=== PATIENT | female | born 1960 | race Two or more races ===

== ENCOUNTER → 2020-04-29 13:24 | Outpatient (BNVA) | payer OTHER, SELFPAY | PROVIDERS: PCP Family Medicine; Referring Provider Family Medicine; Visit Provider Student in an Organized Health Care Education/Training Program | DX: M17.0 Bilateral primary osteoarthritis of knee (principal) | CPT/HCPCS: 20610; 99212 ==

== ENCOUNTER 2020-06-09 12:44 | Outpatient (REF) | payer OTHER, SELFPAY | END 2020-06-09 12:45 | disposition home or self-care (01) | LOC: HO.LAB 12:44 | PROVIDERS: PCP Family Medicine; Visit Provider Internal Medicine | DX: Z20.828 Contact with and (suspected) exposure to other viral communicable diseases (principal) | CPT/HCPCS: C9803; U0003 ==

== ENCOUNTER 2020-07-19 12:24 | Emergency (ER) | payer OTHER, SELFPAY ==
[2020-07-19 13:29] VITALS: BP 159/94; PULSE 92; RESP 18; TEMP 36.6; O2SAT 95; BMI 35.4
--- NOTE | 2020-07-19 13:53 | ED_ITS ---
HPI - Neck Pain/Injury General Chief Complaint: Neck Pain/Injury Stated Complaint: neck pain Time Seen by Provider: 07/19/20 13:52 Source: patient Mode of arrival: ambulatory Limitations: no limitations History of Present Illness HPI Narrative: seen at [facility] for the same last week now with radiating pain to right arm. Patient states that only tylenol with codeine helps her. States she does not want gabapentin MD complaint: neck pain Onset (ago): week(s) Radiation: right lateral and right upper extremity Severity: moderate Quality: burning Duration: intermittent Related Data Home Medications Medication Instructions Recorded Confirmed albuterol sulfate 90 mcg/actuation 2 puff INHALATION Q4-6H PRN 04/29/20 04/29/20 aerosol inhaler fluticasone propionate 110 1 puff INHALATION BID 04/29/20 04/29/20 mcg/actuation HFA aerosol inhaler fluticasone propionate 50 1 spray INTRANASAL DAILY 04/29/20 04/29/20 mcg/actuation nasal spray,suspension hydrochlorothiazide 25 mg tablet 25 mg PO DAILY 04/29/20 04/29/20 hydrocortisone 2.5 % topical cream 1 applic TOPICAL BID PRN 04/29/20 04/29/20 Previous Rx's Medication Instructions Recorded cyclobenzaprine 10 mg PO TID #10 tab 07/19/20 Allergies Allergy/AdvReac Type Severity Reaction Status Date / Time acetaminophen [From PERCOCET] Allergy Intermediate HIVES Verified 07/19/20 13:32 latex [LATEX] Allergy Intermediate RASH Verified 07/19/20 13:32 oxycodone [OXYCODONE] Allergy Intermediate hives, Verified 07/19/20 13:32 itching Penicillins Allergy Intermediate HIVES Verified 07/19/20 13:32 sulfamethoxazole Allergy Intermediate HIVES Verified 07/19/20 13:32 [From Bactrim] tramadol [TRAMADOL] Allergy Intermediate HEADACHES Verified 07/19/20 13:32 Sulfa (Sulfonamide Allergy Mild Itching Verified 07/19/20 13:32 Antibiotics) Review of Systems Constitutional: Constitutional: Reports no additional constitutional complaints Eyes: Eyes: Reports no additional eye complaints ENT: Denies dizziness Cardiovascular: Cardiovascular: Reports no additional cardiovascular complaints Respiratory: Respiratory: Reports as per HPI Gastrointestinal: Gastrointestinal: Reports no additional gastrointestinal complaints Genitourinary: Genitourinary: Reports no additional female genitourinary complaints Musculoskeletal: Musculoskeletal: Reports no additional musculoskeletal complaints Integumentary/Breasts: Skin/Breast: Denies rash Neurologic: Reports system reviewed and no additional complaints, except as documented, Denies dizziness and Denies Sensory deficit (Neuro) Psychiatric: Psychiatric: Denies anxiety [facility] Past Medical History Medical History Asthma Primary osteoarthritis of left knee Primary osteoarthritis of right knee Social History Social History Alcohol intake: never Smoking Status: Never smoker Advance Directives: No Advance Directives Information Provided: Yes Physical Exam Vital Signs: Vital Signs: Last Vital Signs Temp 97.8 F 07/19/20 13:29 Pulse 92 07/19/20 13:29 Resp 18 07/19/20 13:29 BP 159/94 H 07/19/20 13:29 Pulse Ox 95 07/19/20 13:29 Body Mass Index 35.4 Const: General: healthy appearing Nutritional Appearance: average body habitus Orientation/consciousness: oriented to person and patient oriented x3 Limitations: no limitations HENMT: Head: Yes normal to inspection Ears: external ears normal General nose exam: Normal external nose present Mouth: Normal oral and palatal mucosa present and oropharynx normal Throat: Yes posterior oropharynx normal Eyes: General: appearance normal, both eyes and all related structures Neck: Other: supple, no evidence of restriction Neck: Yes normal visual inspection Chest: Chest palpation & inspection: normal inspection of the chest Resp: Auscultation: clear to auscultation bilaterally Cardio: Jugular venous distension: no JVD Rate: regular rate Rhythm: re gular rhythm Heart sounds: S1 normal heart sound present and S2 normal heart sound present GI: Inspection: Yes normal to inspection Palpation (GI): Soft to palpation, nontender and No hepatosplenomegaly present Auscultation: normal bowel ariel nds : General: Yes no CVA tenderness Back/Spine/Pelvis: Back: no CVA tenderness Skin: General skin exam: no rashes or lesions noted Neuro: General: oriented to person and patient oriented x3 Cranial nerves: Yes CN's II-XII intact bilaterally Motor exam (neuro): 5/5 motor strength present throughout Sensory Exam: No Sensory deficit (Neuro) Extrem: General: Yes normal to inspection Psych: Appearance: grossly normal Course Course Course Narrative: significant degenerative changes will refer to neuro for injections MDM - Neck Pain/Injury Differential Diagnosis Differential diagnosis: Likely disc disorder of cervical region and cervical radiculopathy Discharge Plan Discharge Clinical Impression: Disc disorder of cervical region, Cervical radiculopathy Patient Disposition: Home, Self-Care Instructions: Cervical Disc Herniation (ED), Cervical Radiculopathy (ED) Additional Instructions: Call the neurosurgeon to receive cervical injections Prescriptions: New cyclobenzaprine 10 mg tablet 10 mg PO TID Qty: 10 RF: 0 No Action hydrochlorothiazide 25 mg tablet 25 mg PO DAILY RF: 0 Flovent HFA 110 mcg/actuation HFA aerosol inhaler 1 puff inhalation BID RF: 0 fluticasone propionate [Flonase Allergy Relief] 50 mcg/actuation spray,suspension 1 spray intranasal DAILY RF: 0 albuterol sulfate [Ventolin HFA] 90 mcg/actuation HFA aerosol inhaler 2 puff inhalation Q4-6H PRNRF: 0 hydrocortisone 2.5 % cream 1 applic topical BID PRNRF: 0 Referrals: Brigitte Kan DO [Primary Care Provider] - 2 days Viktoria Thurman MD [Physician] - 2 days Stand Alone Forms: Work/School Release Interventions: ED Discharge Assessment Last Done: 07/19/20 14:47 Discharge Date/Time: 07/19/20 14:48
--- NOTE | 2020-07-19 13:54 | XR_ITS ---
EXAMINATION: XR CERVICAL SPINE CLINICAL INFORMATION: Radicular pain to right arm COMPARISON: None TECHNIQUE: 4 views of the cervical spine including swimmer's view were obtained. FINDINGS: Bone alignment is normal. No fracture or dislocation is seen. There is degenerative spondylosis and degenerative disc disease from C4-C5 to C6-C7. Prevertebral soft tissues are normal. XR/XR cervical spine 3V IMPRESSION: Degenerative changes.
[2020-07-19] MEDS: Ketorolac Tromethamine 60 MG/2 ML VIAL IM (14:08)
== END 2020-07-19 14:48 | disposition home or self-care (01) ==
PROVIDERS: Emergency Provider Emergency Medicine; PCP Family Medicine
DX: M50.123 Cervical disc disorder at C6-C7 level with radiculopathy (principal); M47.22 Other spondylosis with radiculopathy, cervical region
CPT/HCPCS: 72040; 96372; 99283; J1885

== ENCOUNTER 2020-08-18 10:23 | Outpatient (REF) | payer OTHER, SELFPAY ==
--- NOTE | ~2020-08-18 | XR_ITS ---
EXAMINATION: XR PELVIS CLINICAL INFORMATION: Pelvic pain. COMPARISON: 03/28/2018 left hip radiographs. TECHNIQUE: AP view of the pelvis. FINDINGS: The patient is status post left hip arthroplasty showing good anatomic alignment with no evidence for hardware malfunction. There is no acute fracture. Mild right hip degenerative joint changes are seen with cam femoral acetabular impingement. Moderate to severe degenerative joint changes are seen in the visualized inferior lumbar spine. XR/XR pelvis 1-2V IMPRESSION: 1. No left hip hardware abnormality or change. No acute fracture. 2. Mild right hip degenerative joint changes with cam femoral acetabular impingement.
== END 2020-08-18 10:24 | disposition home or self-care (01) ==
LOC: HO.HOSX 10:23
PROVIDERS: PCP Family Medicine; Visit Provider Orthopaedic Surgery
DX: M61.0 Myositis ossificans traumatica (principal); Z96.642 Presence of left artificial hip joint
CPT/HCPCS: 20610; 72170; 99212; J1100

== ENCOUNTER → 2020-08-25 09:25 | Outpatient (BNVA) | payer OTHER, SELFPAY | PROVIDERS: PCP Family Medicine; Visit Provider Student in an Organized Health Care Education/Training Program | DX: M17.11 Unilateral primary osteoarthritis, right knee (principal); M17.12 Unilateral primary osteoarthritis, left knee | CPT/HCPCS: 20610; 99212 ==

== ENCOUNTER 2020-10-03 12:23 | Outpatient (REF) | payer OTHER, SELFPAY ==
--- NOTE | ~2020-10-03 | US_ITS ---
EXAMINATION: US VENOUS ULTRASOUND WITH DOPPLER LOWER EXTREMITY, BILATERAL CLINICAL INFORMATION: Bilateral lower extremity edema and pain. COMPARISON: 09/24/2018 TECHNIQUE: Ultrasound of the deep veins is performed from the hip to the calf with compression sonography and color and pulse Doppler assessment. Spectral analysis with color-flow imaging is performed. FINDINGS: RIGHT: There is normal venous compression and respiratory variation and augmented flow. The visualized common femoral vein, superficial femoral vein, profunda femoral vein, popliteal vein, and the trifurcation region shows no evidence of deep venous thrombosis. There is no significant popliteal fossa cyst. LEFT: There is normal venous compression and respiratory variation and augmented flow. The visualized common femoral vein, superficial femoral vein, profunda femoral vein, popliteal vein, and the trifurcation region shows no evidence of deep venous thrombosis. There is no significant popliteal fossa cyst. If the patient's symptoms persist, followup ultrasound in 5 days 7 days might be of value to exclude proximal propagation from a non-visualized calf vein. US/US venous duplex LE BI IMPRESSION: No DVT demonstrated in the bilateral lower extremities.
== END 2020-10-03 12:24 | disposition home or self-care (01) ==
LOC: HO.US 12:23
PROVIDERS: PCP Family Medicine; Visit Provider Emergency Medicine
DX: M79.661 Pain in right lower leg (principal); I87.2 Venous insufficiency (chronic) (peripheral)
CPT/HCPCS: 93970

== ENCOUNTER → 2020-10-25 13:30 | Outpatient (BNVA) | payer OTHER, SELFPAY | PROVIDERS: PCP Family Medicine; Visit Provider Surgery Vascular Surgery | DX: I83.12 Varicose veins of left lower extremity with inflammation (principal) | CPT/HCPCS: 99202 ==

== ENCOUNTER 2020-11-21 12:19 | Outpatient (REF) | payer OTHER, SELFPAY ==
--- NOTE | ~2020-11-21 | US_ITS ---
EXAMINATION: BILATERAL LOWER EXTREMITY VENOUS ULTRASOUND (Reflux Exam) CLINICAL INDICATION: Lower extremity varicose veins. COMPARISON: Lower extremity venous Doppler ultrasound on 10/03/2020 TECHNIQUE: Color flow triplex imaging and compression Doppler was performed to evaluate both the deep and the superficial systems bilaterally. To evaluate the superficial system, the examination was performed in the upright position. Color-flow Doppler ultrasound and compression ultrasound were utilized. In addition, maneuvers were utilized to demonstrate reflux. FINDINGS: 1. DEEP VENOUS ULTRASOUND OF THE RIGHT LOWER EXTREMITY: Common Femoral Vein: Compressible, normal respiratory variation and augmented flow. Femoral Vein: Compressible, normal color flow and augmentation. Popliteal Vein: Compressible, normal augmentation. Deep Reflux: There is no evidence of reflux in the deep system in either the common femoral vein or the popliteal vein. There is no evidence of a Loaiza's cyst. 2. SUPERFICIAL ULTRASOUND WITH DOPPLER OF RIGHT LOWER EXTREMITY GREAT SAPHENOUS VEIN: Saphenofemoral junction: 0.6 cm; No evidence of reflux. Proximal thigh: 0.5 cm; No evidence of reflux. Midthigh: 0.4 cm; greater than 1.0 seconds of reflux Above knee: 0.4 cm; No evidence of reflux. At knee: 0.4 cm; No evidence of reflux. Below knee: 0.4 cm; No evidence of reflux. Midcalf: 0.3 cm; greater than 0.6 seconds of reflux Ankle: 0.4 cm; No evidence of reflux. DUPLICATED GREAT SAPHENOUS VEIN: Lateral: 0.2 cm, no reflux SMALL SAPHENOUS VEIN: Saphenopopliteal junction: 0.2 cm; No evidence of reflux. Midcalf: 0.3 cm; No evidence of reflux. Distal calf: 0.4 cm; No evidence of reflux. VEIN OF GIACOMINI: None imaged. PERFORATORS: None imaged VARICOSITIES: Midthigh: 0.3 cm, no reflux Proximal calf: 0.3 cm, greater than 1.4 seconds of reflux 3. DEEP VENOUS ULTRASOUND OF THE LEFT LOWER EXTREMITY: Common Femoral Vein: Compressible, normal respiratory variation and augmented flow. Femoral Vein: Compressible, normal color flow and augmentation. Popliteal Vein: Compressible, normal augmentation. Deep Reflux: There is greater than 1.6 seconds of venous reflux within the left popliteal vein. There is no evidence of a Loaiza's cyst. 4. SUPERFICIAL ULTRASOUND WITH DOPPLER OF LEFT LOWER EXTREMITY GREAT SAPHENOUS VEIN: Saphenofemoral junction: 0.7 cm; No evidence of reflux. Proximal thigh: 0.6 cm; No evidence of reflux. Midthigh: 0.4 cm; No evidence of reflux. Above knee: 0.3 cm; No evidence of reflux. At knee: 0.4 cm; No evidence of reflux. Below knee: 0.3 cm; No evidence of reflux. Midcalf: 0.3 cm; greater than 0.5 seconds of reflux Ankle: 0.3 cm; No evidence of reflux. DUPLICATED GREAT SAPHENOUS VEIN: Medial: 0.3 cm, no reflux SMALL SAPHENOUS VEIN: Saphenopopliteal junction: 0.2 cm; No evidence of reflux. Midcalf: 0.3 cm; No evidence of reflux. Distal calf: 0.3 cm; No evidence of reflux. VEIN OF GIACOMINI: None imaged. PERFORATORS: None imaged VARICOSITIES: Midthigh: 0.3 cm, greater than 1 seconds of reflux Proximal calf: 0.3 cm, no reflux US/US venous duplex LE BI IMPRESSION: 1. Right great saphenous venous insufficiency at the midthigh and midcalf. 2. Left great saphenous venous insufficiency at the midcalf. 3. No evidence of small saphenous venous insufficiency. 4. Bilateral refluxing varicosities. 5. No evidence of deep venous reflux or DVT.
== END 2020-11-21 12:20 | disposition home or self-care (01) ==
LOC: HO.US 12:19
PROVIDERS: Visit Provider Surgery Vascular Surgery
DX: I83.893 Varicose veins of bilateral lower extremities with other complications (principal)
CPT/HCPCS: 93970

== ENCOUNTER → 2020-11-24 11:20 | Outpatient (BNVA) | payer OTHER, SELFPAY | PROVIDERS: PCP Family Medicine; Visit Provider Orthopaedic Surgery | DX: M89.8X8 Other specified disorders of bone, other site (principal); M25.552 Pain in left hip; Z96.642 Presence of left artificial hip joint | CPT/HCPCS: 20610; 99212; J1100 ==

== ENCOUNTER 2020-12-02 10:27 | Emergency (ER) | payer OTHER, SELFPAY ==
--- NOTE | 2020-12-02 11:22 | ED_ITS ---
HPI - Back Pain/Injury General Chief Complaint: General Medical Stated Complaint: LOWER BACK PAIN DIFF WALKING Time Seen by Provider: 12/02/20 11:20 Source: patient Mode of arrival: ambulatory Limitations: no limitations History of Present Illness HPI Narrative: 60 y/o female with history of osteoarthritis, varicose veins of LE, s/p left hip replacement 5 years ago with recently diagnosed left hip bursitis/abductor tendinitis and decadron/lidocaine injection by Ortho on 11/24/20 who presents to the ED c/o worsening lower left back pain. She works at [employer] and is on her feet all day. Pain is worse after being on her feel. The pain is located left lower back/buttocks and does not radiate. She stopped taking medications for the pain because nothing was working. She reports her left hip pain is better after her recent injection. She wants an injection in her lower back. She has no numbness, tingling or weakness. No fevers. MD elicited complaint: back pain Pertinent past history: prior back pain Onset (ago): day(s) Timing: constant Severity: moderate Similar Symptoms Previously: Yes Quality: sharp Location: sacrum (left side) Radiation: none Exacerbating factors: walking Relieving factors: sitting upright Context: unknown Associated symptoms: denies other symptoms Work related injury: No Related Data Home Medications Medication Instructions Recorded Confirmed albuterol sulfate 90 mcg/actuation 2 puff INHALATION Q4-6H PRN 04/29/2020 aerosol inhaler fluticasone propionate 110 1 puff INHALATION BID 04/29/2004/29/20 mcg/actuation HFA aerosol inhaler fluticasone propionate 50 1 spray INTRANASAL DAILY 04/29/2020 mcg/actuation nasal spray,suspension hydrochlorothiazide 25 mg tablet 25 mg PO DAILY 04/29/20 04/29/20 hydrocortisone 2.5 % topical cream 1 applic TOPICAL BID PRN 04/29/20 04/29/20 atorvastatin 10 mg tablet 10 mg PO DAILY 10/25/20 cetirizine 10 mg tablet 10 mg PO DAILY 10/25/20 pseudoephedrine HCl 30 mg tablet 30 mg PO TID 10/25/20 Previous Rx's Medication Instructions Recorded cyclobenzaprine 10 mg PO TID #10 tab 07/19/20 cyclobenzaprine 10 mg PO TID PRN #10 tab 12/02/20 lidocaine [Lidoderm] 1 patch TOPICAL DAILY #15 ea 12/02/20 prednisone 50 mg PO DAILY #5 tab 12/02/20 Allergies Allergy/AdvReac Type Severity Reaction Status Date / Time latex [LATEX] Allergy Intermediate RASH Verified 12/02/20 11:28 oxycodone [OXYCODONE] Allergy Intermediate hives, Verified 12/02/20 11:28 itching Penicillins Allergy Intermediate HIVES Verified 12/02/20 11:28 sulfamethoxazole Allergy Intermediate HIVES Verified 12/02/20 11:28 [From Bactrim] tramadol [TRAMADOL] Allergy Intermediate HEADACHES Verified 12/02/20 11:28 Sulfa (Sulfonamide Allergy Mild Itching Verified 12/02/20 11:28 Antibiotics) Review of Systems Review of Systems: Constitutional: No Fever, No Chills Gastrointestinal: No Nausea, No Vomiting,, No abdominal Pain Genitourinary: No Dysuria, No Urinary Frequency, No Hematuria Musculoskeletal: + joint pain, No Myalgias Skin: No Skin Lesions, No rash Neuro: No Weakness, No Numbness, No Dizziness, No Headache Heme/Lymph: No Bruising PMFSH Past Medical History Attestation statement: The following information was validated with the patient. Medical History Asthma Primary osteoarthritis of left knee Primary osteoarthritis of right knee Social History Social History (Updated 11/24/20 @ 11:29 by LETHA Frederick) Alcohol intake: never Patient Tobacco Use Status: Never used Tobacco Advance Directives: Yes Advance Directives Information Provided: No Advance Directives on File: No Current occupational status: retired Physical Exam Vital Signs: Vital Signs: Last Vital Signs Temp 98.1 F 12/02/20 11:28 Pulse 69 12/02/20 11:28 Resp 18 12/02/20 11:28 BP 127/74 12/02/20 11:28 Pulse Ox 96 12/02/20 11:28 Body Mass Index 28.8 Appearance: Alert. Oriented X3. No acute distress. HEENT: normal inspection CVS: Normal heart rate and rhythm. Pulses normal. Respiratory: No respiratory distress. Skin: Skin warm and dry. Normal skin color. Normal skin turgor. No rashes. Back: normal inspection, no spinal tenderness. left SI joint with tenderness. no soft tissue tenderness. left hip is nontender Extremities: atraumatic, no edema. normal DTRs. Neuro: Oriented X 3. No motor deficit. No sensory deficit. Slow but steady gait. Course Course Course Narrative: 60 y/o female presenting with left sided low back pain, exam is consistent with sacroiliac pain. Asking for injection in the arm that usually works for her pain. Will give IM toradol and start a course of prednisone. She will call orthopedics for follow up. Discharge Plan Discharge Clinical Impression: Sacroiliac joint pain Patient Disposition: Home, Self-Care Instructions: Sacroiliitis (ED) Additional Instructions: Follow up with your Orthopedic doctor for possible additional injections of steroids and pain medication into your SI joint. No bending, lifting >5 lbs or twisting movements. Use ice several times per day for 20 minutes at a time for the next 48 hours and then change to heat. Take medications as prescribed to help with pain and discomfort. Follow up with your Primary Care Doctor this week. Follow up with Pain Management as recommended by Orthopedics. If your pain worsens, if you develop new numbness, tingling, weakness, loss of function or incontinence call 911 or come back to the ER right away for evaluation. Prescriptions: New prednisone 50 mg tablet 50 mg PO DAILY Qty: 5 RF: 0 cyclobenzaprine 10 mg tablet 10 mg PO TID PRN (Reason: muscle spasm) Qty: 10 RF: 0 lidocaine [Lidoderm] 5 % adhesive patch,medicated 1 patch topical DAILY Qty: 15 RF: 0 No Action cyclobenzaprine 10 mg tablet 10 mg PO TID Qty: 10 RF: 0 hydrochlorothiazide 25 mg tablet 25 mg PO DAILY RF: 0 Flovent HFA 110 mcg/actuation HFA aerosol inhaler 1 puff inhalation BID RF: 0 fluticasone propionate [Flonase Allergy Relief] 50 mcg/actuation spray,suspension 1 spray intranasal DAILY RF: 0 albuterol sulfate [Ventolin HFA] 90 mcg/actuation HFA aerosol inhaler 2 puff inhalation Q4-6H PRNRF: 0 hydrocortisone 2.5 % cream 1 applic topical BID PRNRF: 0 pseudoephedrine HCl 30 mg tablet 30 mg PO TID RF: 0 atorvastatin 10 mg tablet 10 mg PO DAILY RF: 0 cetirizine 10 mg tablet 10 mg PO DAILY RF: 0 Referrals: Alex Dexter MD [Physician] - 2 days (SI joint pain) Stand Alone Forms: Work/School Release Interventions: ED Discharge Assessment Last Done: 12/02/20 12:23 Discharge Date/Time: 12/02/20 12:24
[2020-12-02 11:28] VITALS: BP 127/74; PULSE 69; RESP 18; TEMP 36.7; O2SAT 96; BMI 28.8
[2020-12-02] MEDS: Ketorolac Tromethamine 60 MG/2 ML VIAL IM (12:13)
== END 2020-12-02 12:24 | disposition home or self-care (01) ==
PROVIDERS: Emergency Provider Emergency Medicine Emergency Medical Services; PCP Family Medicine
DX: M53.3 Sacrococcygeal disorders, not elsewhere classified (principal); M54.5 Low back pain
CPT/HCPCS: 96372; 99283; 99284; J1885

== ENCOUNTER → 2020-12-13 13:24 | Outpatient (BNVA) | payer OTHER, SELFPAY | PROVIDERS: PCP Family Medicine; Visit Provider Surgery Vascular Surgery | DX: I83.12 Varicose veins of left lower extremity with inflammation (principal); I89.0 Lymphedema, not elsewhere classified | CPT/HCPCS: 99212 ==

== ENCOUNTER → 2020-12-15 15:29 | Outpatient (BNVA) | payer OTHER, SELFPAY | PROVIDERS: PCP Family Medicine; Visit Provider Anesthesiology | DX: D36.10 Benign neoplasm of peripheral nerves and autonomic nervous system, unspecified (principal); G89.4 Chronic pain syndrome | CPT/HCPCS: 99212 ==

== ENCOUNTER → 2020-12-23 13:18 | Outpatient (BNVA) | payer OTHER, SELFPAY | PROVIDERS: PCP Family Medicine; Visit Provider Student in an Organized Health Care Education/Training Program | DX: M17.11 Unilateral primary osteoarthritis, right knee (principal); M17.12 Unilateral primary osteoarthritis, left knee | CPT/HCPCS: 20610; 99212 ==

== ENCOUNTER → 2021-01-12 12:25 | Outpatient (REF) | payer OTHER, SELFPAY ==
--- NOTE | 2021-01-12 13:00 | CA_ITS ---
Transthoracic Echocardiogram Patient (Last, First, Middle): Katelyn Parra M Gender: Female Date of : 1960 Age: 60 Procedure Date: 01/12/2021 Procedure Type: Transthoracic Echocardiogram Location: OP Height: 175.26 cm Weight: 97.07 kg BSA: 2.13 m2 Heart Rate: bpm BP: 156 / 73 mmHg Sulfur Burner: NEELIMA/EDWARD Referring MD: Brigitte Kan DO [employer] Fishing Tool Technician: Andres Resendez MD Symptoms: R53.83 FATIGUE Study Quality: Technically Difficult ECG Rhythm: Sinus Conclusions: - 1. Normal LV systolic function with impaired relaxation filling pattern next 2. Mildly dilated left atrium 3. Normal cardiac valvular Doppler 4. No gross pericardial effusion Findings Left Ventricle Normal left ventricular size, thickness, and systolic function. The visually estimated ejection fraction is between 60-65%. Spectral Doppler is indicative of an impaired relaxation filling pattern. E/E prime ratio is between 8 and 15 consistent with indeterminate filling pressures. Right Ventricle Normal right ventricular cavity size and systolic function. Atria The left atrium is mildly dilated. There is lipomatous hypertrophy of the interatrial septum. There is no evidence of interatrial shunt. The right atrium is normal in size. Aortic Valve The aortic valve structure and function is likely normal. There is no aortic valve stenosis. There is no aortic valve regurgitation. Mitral Valve Normal mitral valve structure and function. There is trace mitral valve regurgitation. There is no mitral valve stenosis. Pulmonic Valve The pulmonic valve was not well visualized. Tricuspid Valve Likely normal tricuspid valve structure and function. Tricuspid regurgitation envelope is inadequate for calculation of right ventricular systolic pressure. Great Vessels All visible segments of the aorta are normal in size. The pulmonary artery was not well visualized. Venous The inferior vena cava was not well visualized. Pericardium/Pleural There is no evidence of pericardial effusion. Prior Study Comparison No prior study available for comparison. Measurements 2D Linear Measurements IVSd: 1.15 0.6-0.9/0.6-1.0 cm LVIDd: 4.34 3.9-5.3/4.2-5.9 cm LVIDd Index: 2.04 2.4-3.2/2.2-3.1 cm/m2 LVIDs: 3.08 2.0-3.6 cm LVPWd: 1.15 0.7-1.1 cm Ao Root: 3.10 2.1-3.5 cm LA Diam: 3.60 2.7-3.8/3.0-4.0 cm LAIDs Index: 1.69 1.5-2.3 cm/m2 LV Mass: 219.45 67-162/88-224 g LV Mass Index: 103.03 43-95/49-115 g/m2 LVOT Diam: 2.50 3.0+(-)1.3 cm Mitral Valve MV Pk E: 0.69 MV PK A: 0.64 MV Decel Time: 324.00 E/A: 1.10 E'Lateral: 10.70 E'Medial: 7.29 E/E' Med: 9.50 E/E' Lat: 6.50 PHT: 95.00 MVA PHT: 2.32 Decel Cocke: 2.14 Aortic Valve AoV Pk Beka: 1.59 AoV Mn Beka: 0.97 AoV VTI: 0.32 AoV Pk Grad: 10.00 Aov Mn Grad: 4.00 FRANCISCA Cont.VTI: 3.90 LVOT LVOT Pk Beka: 1.23 LVOT Mn Beka: 0.84 LVOT VTI: 0.25 LVOT Pk Grad: 6.00 LVOT Mn Grad: 3.00 LVOT Diam: 2.50 LVOT Area: 4.91 Diastolic Function MV Pk E: 0.69 MV Pk A: 0.64 E/A: 1.10 E'Medial: 7.29 E/E' Med: 9.50 E' Laterial: 10.70 E/E' Lat: 6.50 Great Vessels Aorta Ao Root-2D: 3.10 2.0-3.7 cm Ao Asc: 3.70 2.1-3.4 cm Ao Arch: 2.90 Updated in Other Vendor System with Status of Final Andres Resendez MD electronically signed on 01/12/2021 3:05:18 PM with status of Final
== END ==
LOC: HO.CARD 12:25
PROVIDERS: Visit Provider Family Medicine
DX: R53.83 Other fatigue (principal)
CPT/HCPCS: 93306

== ENCOUNTER → 2021-01-13 11:10 | Outpatient (BNVA) | payer OTHER, SELFPAY | PROVIDERS: PCP Family Medicine; Visit Provider Orthopaedic Surgery | DX: M89.8X9 Other specified disorders of bone, unspecified site (principal); Z96.642 Presence of left artificial hip joint | CPT/HCPCS: 20610; 99212; J1100 ==

== ENCOUNTER 2021-04-06 08:38 | Outpatient (REF) | payer OTHER, SELFPAY ==
--- NOTE | ~2021-04-06 | XR_ITS ---
EXAMINATION: XR KNEE, RIGHT XR KNEE, LEFT XR KNEE STANDING, BILATERAL CLINICAL INFORMATION: Pain in bilateral knee. COMPARISON: None TECHNIQUE: AP bilateral knee 1 view. 2 views each knee. FINDINGS: AP BILATERAL KNEE: There is moderate reduction in the medial and patellofemoral compartment right knee and medial compartment left knee with [id number]-vk-[id number] osteophytosis. RIGHT KNEE: There is severe loss of patellofemoral compartment joint space with nrsbhrgw-aw-rqjxaeeedoq osteophytosis. No loose bodies or bony erosive changes seen. There is no abnormal joint effusion. LEFT KNEE: There is severe loss of patellofemoral compartment joint space with ctwgorzi-ly-svifhfsdhih osteophytosis. No loose bodies or bony erosive changes seen. The soft tissues are normal. XR/XR knee RT 2V IMPRESSION: Severe degenerative changes with osteophytosis tricompartment right knee and medial and patellofemoral compartment left knee. There are no loose bodies, joint effusion or bony erosion. No visible acute fracture either.
--- NOTE | ~2021-04-06 | XR_ITS ---
EXAMINATION: XR KNEE, RIGHT XR KNEE, LEFT XR KNEE STANDING, BILATERAL CLINICAL INFORMATION: Pain in bilateral knee. COMPARISON: None TECHNIQUE: AP bilateral knee 1 view. 2 views each knee. FINDINGS: AP BILATERAL KNEE: There is moderate reduction in the medial and patellofemoral compartment right knee and medial compartment left knee with ihxbzeyt-bf-wfyrfbwzcjg osteophytosis. RIGHT KNEE: There is severe loss of patellofemoral compartment joint space with bkwkkadi-my-vhhrzzhznky osteophytosis. No loose bodies or bony erosive changes seen. There is no abnormal joint effusion. LEFT KNEE: There is severe loss of patellofemoral compartment joint space with qhagzvcj-ts-ekgbnucoarw osteophytosis. No loose bodies or bony erosive changes seen. The soft tissues are normal. XR/XR knee LT 2V IMPRESSION: Severe degenerative changes with osteophytosis tricompartment right knee and medial and patellofemoral compartment left knee. There are no loose bodies, joint effusion or bony erosion. No visible acute fracture either.
--- NOTE | ~2021-04-06 | XR_ITS ---
EXAMINATION: XR KNEE, RIGHT XR KNEE, LEFT XR KNEE STANDING, BILATERAL CLINICAL INFORMATION: Pain in bilateral knee. COMPARISON: None TECHNIQUE: AP bilateral knee 1 view. 2 views each knee. FINDINGS: AP BILATERAL KNEE: There is moderate reduction in the medial and patellofemoral compartment right knee and medial compartment left knee with xznicloi-lq-mqcdxdvvjmf osteophytosis. RIGHT KNEE: There is severe loss of patellofemoral compartment joint space with zxrgbcpl-pw-pgfusjuedqg osteophytosis. No loose bodies or bony erosive changes seen. There is no abnormal joint effusion. LEFT KNEE: There is severe loss of patellofemoral compartment joint space with oupfubxx-nd-bacxupvdqwy osteophytosis. No loose bodies or bony erosive changes seen. The soft tissues are normal. XR/XR knee standing BI IMPRESSION: Severe degenerative changes with osteophytosis tricompartment right knee and medial and patellofemoral compartment left knee. There are no loose bodies, joint effusion or bony erosion. No visible acute fracture either.
== END 2021-04-06 08:39 | disposition home or self-care (01) ==
LOC: HO.HOSX 08:38
PROVIDERS: Visit Provider Orthopaedic Surgery
DX: M17.0 Bilateral primary osteoarthritis of knee (principal); M70.62 Trochanteric bursitis, left hip; Y93.9 Activity, unspecified; M89.8X9 Other specified disorders of bone, unspecified site; Z96.642 Presence of left artificial hip joint
CPT/HCPCS: 20610; 73560; 73565; 99212; J1100

== ENCOUNTER → 2021-07-06 10:22 | Outpatient (BNVA) | payer OTHER, SELFPAY | PROVIDERS: Visit Provider Orthopaedic Surgery | DX: M17.0 Bilateral primary osteoarthritis of knee (principal); M21.061 Valgus deformity, not elsewhere classified, right knee | CPT/HCPCS: 20610; 99212; J1100 ==

== ENCOUNTER → 2021-07-25 10:22 | Outpatient (BNVA) | payer OTHER, SELFPAY | PROVIDERS: PCP Family Medicine | DX: R32 Unspecified urinary incontinence (principal) | CPT/HCPCS: 51798; 99212 ==

== ENCOUNTER → 2021-08-07 11:22 | Outpatient (BNVA) | payer OTHER, SELFPAY | PROVIDERS: PCP Family Medicine; Visit Provider Orthopaedic Surgery | DX: M70.62 Trochanteric bursitis, left hip (principal) | CPT/HCPCS: 20610; 99212; J1100 ==

== ENCOUNTER → 2021-09-14 12:45 | Outpatient (BNVA) | payer OTHER, SELFPAY | PROVIDERS: PCP Family Medicine; Visit Provider Orthopaedic Surgery | DX: M70.62 Trochanteric bursitis, left hip (principal); M25.552 Pain in left hip; M79.18 Myalgia, other site | CPT/HCPCS: 20552; 20610; 99212; J1100 ==

== ENCOUNTER → 2021-09-29 13:42 | Outpatient (BNVA) | payer OTHER, SELFPAY | PROVIDERS: PCP Family Medicine | DX: R32 Unspecified urinary incontinence (principal) | CPT/HCPCS: Q3014 ==

== ENCOUNTER → 2021-10-25 10:29 | Outpatient (BNVA) | payer OTHER, SELFPAY | PROVIDERS: PCP Family Medicine; Visit Provider Urology | DX: N32.81 Overactive bladder (principal) | CPT/HCPCS: 52287; J0585 ==

== ENCOUNTER → 2021-11-10 09:32 | Outpatient (BNVA) | payer OTHER, SELFPAY | PROVIDERS: PCP Family Medicine; Visit Provider Orthopaedic Surgery | DX: M17.0 Bilateral primary osteoarthritis of knee (principal); M70.62 Trochanteric bursitis, left hip; E11.9 Type 2 diabetes mellitus without complications | CPT/HCPCS: 20610; 99212; J1100 ==

== ENCOUNTER → 2021-11-24 12:36 | Outpatient (BNVA) | payer OTHER, SELFPAY | PROVIDERS: PCP Family Medicine; Visit Provider Urology | DX: N32.81 Overactive bladder (principal); N30.20 Other chronic cystitis without hematuria | CPT/HCPCS: Q3014 ==

== ENCOUNTER → 2022-04-12 09:24 | Outpatient (BNVA) | payer OTHER, SELFPAY | PROVIDERS: PCP Family Medicine; Visit Provider Orthopaedic Surgery | DX: M17.0 Bilateral primary osteoarthritis of knee (principal); M70.62 Trochanteric bursitis, left hip; E11.9 Type 2 diabetes mellitus without complications | CPT/HCPCS: 20610; 99212; J1100 ==

== ENCOUNTER → 2022-05-10 11:44 | Outpatient (BNVA) | payer OTHER, SELFPAY | PROVIDERS: PCP Family Medicine; Visit Provider Orthopaedic Surgery | DX: M70.62 Trochanteric bursitis, left hip (principal); E11.9 Type 2 diabetes mellitus without complications | CPT/HCPCS: 20610; 99212; J1100 ==

== ENCOUNTER → 2022-05-17 09:27 | Outpatient (BNVA) | payer OTHER, SELFPAY | PROVIDERS: PCP Family Medicine; Visit Provider Urology | DX: N32.81 Overactive bladder (principal); N39.3 Stress incontinence (female) (male); Z79.899 Other long term (current) drug therapy | CPT/HCPCS: Q3014 ==

== ENCOUNTER → 2022-09-13 11:27 | Outpatient (BNVA) | payer OTHER, SELFPAY | PROVIDERS: PCP Family Medicine; Visit Provider Orthopaedic Surgery | DX: M17.0 Bilateral primary osteoarthritis of knee (principal); E11.9 Type 2 diabetes mellitus without complications | CPT/HCPCS: 20610; 99212; J1100 ==

== ENCOUNTER → 2022-10-04 10:26 | Outpatient (BNVA) | payer OTHER, SELFPAY | PROVIDERS: PCP Family Medicine; Visit Provider Orthopaedic Surgery | DX: M70.62 Trochanteric bursitis, left hip (principal); E11.9 Type 2 diabetes mellitus without complications | CPT/HCPCS: 20610; 99212; J1100 ==

== ENCOUNTER 2022-12-10 11:25 | Outpatient (REF) | payer OTHER, SELFPAY ==
--- NOTE | ~2022-12-10 | XR_ITS ---
EXAMINATION: XR LUMBOSACRAL SPINE CLINICAL INFORMATION: Lower back pain of 6 months' duration. COMPARISON: Radiographs dated 10/04/2015. TECHNIQUE: AP and lateral views of the lumbar spine and lateral view of the lumbosacral junction. FINDINGS: There is bony demineralization. There is a slight thoracolumbar levoscoliosis, which may be positional. Vertebral body heights are normal. There is mild degenerative disc disease at L4-L5. There is moderate degenerative disc disease at L5-S1, with vacuum phenomenon. The remaining disc spaces are relatively well-maintained. No acute fracture or spondylolisthesis is seen. There is multi-level marked thoracolumbar spondylosis. The posterior elements are intact. There is facet arthropathy, most pronounced at L4-L5 and L5-S1. The paravertebral soft tissues are unremarkable. XR/XR lumbar spine 2-3V IMPRESSION: 1. There is moderate degenerative disc disease at L5-S1, increased from 10/04/2015. Mild degenerative disc disease is redemonstrated at L4-L5. 2. No acute fracture or spondylolisthesis is seen. 3. There is multi-level thoracolumbar spondylosis.
== END 2022-12-10 11:26 | disposition home or self-care (01) ==
LOC: HO.HHCX 11:25
PROVIDERS: Visit Provider Family Medicine
DX: M54.50 Low back pain, unspecified (principal); G89.29 Other chronic pain
CPT/HCPCS: 72100

== ENCOUNTER → 2022-12-20 09:22 | Outpatient (BNVA) | payer OTHER, SELFPAY | PROVIDERS: PCP Family Medicine; Visit Provider Orthopaedic Surgery | DX: M17.0 Bilateral primary osteoarthritis of knee (principal); G89.4 Chronic pain syndrome; E11.9 Type 2 diabetes mellitus without complications | CPT/HCPCS: 20610; 99212; J1100 ==

== ENCOUNTER 2023-02-04 10:50 | Outpatient (REF) | payer OTHER, SELFPAY | END 2023-02-04 10:51 | disposition home or self-care (01) | LOC: HO.MRI 10:50 | PROVIDERS: PCP Family Medicine; Visit Provider Emergency Medicine | DX: Z13.89 Encounter for screening for other disorder (principal) ==

== ENCOUNTER 2023-03-19 17:21 | Outpatient (REF) | payer OTHER, SELFPAY | END 2023-03-19 17:22 | disposition home or self-care (01) | LOC: HO.HHCLNP 17:21 | PROVIDERS: Visit Provider Family Medicine | DX: R30.0 Dysuria (principal) | CPT/HCPCS: 87086; 87088; 87186 ==

== ENCOUNTER 2023-04-01 11:01 | Outpatient (AMB) | payer OTHER, SELFPAY ==
--- NOTE | 2023-04-01 11:05 | A.OFFVIS_ITS ---
Intake Vital Signs 04/01/23 11:27 Height 5 ft 9 in Weight 213 lb BMI 31.5 Intake Visit Reasons: OV-B/L knee injections-last injection 12/20/22 Intake Note: Katelyn is a 63 year old female who presents today for a follow up of her bilateral knee OA, Last injections done 12/20/22. [place] Allergies ciprofloxacin Allergy (Severe, Verified 12/20/22 09:25) Hives latex [LATEX] Allergy (Intermediate, Verified 12/20/22 09:25) RASH oxycodone [OXYCODONE] Allergy (Intermediate, Verified 12/20/22 09:25) hives, itching Penicillins Allergy (Intermediate, Verified 12/20/22 09:25) HIVES sulfamethoxazole [From Bactrim] Allergy (Intermediate, Verified 12/20/22 09:25) HIVES tramadol [TRAMADOL] Allergy (Intermediate, Verified 12/20/22 09:25) HEADACHES Sulfa (Sulfonamide Antibiotics) Allergy (Mild, Verified 12/20/22 09:25) Itching HPI OV-B/L knee injections-last injection 12/20/22 HPI Details Katelyn is a 63 year old Diabetic woman with bilateral knee OA and a long history of relief from steroid injections. Her most recent knee injections were on 12/20/22 and she would like to repeat this today. [facility] Medical History Urinary incontinence Chronic pain syndrome Scar neuroma Asthma Primary osteoarthritis of left knee Primary osteoarthritis of right knee Surgical History History of surgery Social History Alcohol intake: never Patient Tobacco Use Status: Former Tobacco user Tobacco use type: Cigarette Cigarettes Per Day: 40 Years Smoked: 6 Current occupational status: retired Review of Systems Const All systems reviewed & are unremarkable except as noted in HPI and below Physical Exam Vital Signs: BMI result Body Mass Index 31.5 Const General: no acute distress and alert Orientation/consciousness: patient oriented x3 HEENT Head: Yes normocephalic and Yes atraumatic Eyes EOM: EOMs intact bilaterally Resp Effort & Inspection: normal respiratory effort and able to speak in complete sentences Cardio Jugular venous distension: no JVD Skin General skin exam: turgor normal Rashes: no rashes Neuro General: patient oriented x3 Extrem Other: Bilateral Knees: TTP medial compartment bilateral knees mild gait antalgia 0-120 bilaterally No effusion Psych Appearance: grossly normal Affect: normal affect Attitude: cooperative Office Procedures Joint Injection/Drain Joint Injection/Drain Details: Injected 1 mL of Decadron and 3 mL 1% lidocaine and 3 mL of 0.25% Marcaine. Site was prepped using aseptic technique. Patient tolerated the procedure well. Primary Site: right knee Secondary Site: left knee Approach Used: anterolateral Coding - Large joint 19426 - Glenohumeral/Tronchanteric Bursa/Intraarticular Procedure code (CPT) selection complete Results Reviewed Results Reviewed: 04/01/23 11:05 BUPivacaine MPF 0.25 % [Sensorcaine-MPF 0.25% 10 ML] 10 ml .ROUTE .STK-MED ONE Lidocaine HCl 2 % MPF [Xylocaine 2 % MPF] 5 ml .ROUTE .STK-MED ONE dexAMETHasone sod phosphate [Decadron] 4 mg .ROUTE .STK-MED ONE I personally reviewed relevant radiographs. severe bilateral knee tricompartmental OA right > left Assessment & Plan Assessment & Plan (1) Bilateral primary osteoarthritis of knee: Code(s): M17.0 - Bilateral primary osteoarthritis of knee Plan: This is a 63 year old woman with bilateral knee OA. She was last injected on 12/20/22, with great relief. I injected her bilateral knees today, which she tolerated well. She can follow up prn. (2) Diabetes: Code(s): E11.9 - Type 2 diabetes mellitus without complications Plan: I discussed the hyperglycemic effects of steroid injections. Plan Scribed for Alex Dexter MD by Twan Frost, medical leader, on 04/01/23 at 11:10 AM, EST. Coding Level of Care Code Est Pt Level 4 (62693) Diagnoses Bilateral primary osteoarthritis of knee M17.0 Diabetes E11.9 CPT Codes Coding - Large joint: 63097 - Large joint ([id number]) Coding - Joint 7: 30711 - Glenohumeral/Tronchanteric Bursa/Intraarticular ([id number])
[2023-04-01 11:27] VITALS: BMI 31.5
== END 2023-04-01 11:27 | disposition home or self-care (01) ==
PROVIDERS: PCP Family Medicine; Visit Provider Orthopaedic Surgery
DX: M17.0 Bilateral primary osteoarthritis of knee (principal); E11.9 Type 2 diabetes mellitus without complications
CPT/HCPCS: 20610; 99214

== ENCOUNTER → 2023-04-01 11:01 | Outpatient (BNVA) | payer OTHER, SELFPAY | PROVIDERS: PCP Family Medicine; Visit Provider Orthopaedic Surgery | DX: M17.0 Bilateral primary osteoarthritis of knee (principal); G89.4 Chronic pain syndrome; E11.9 Type 2 diabetes mellitus without complications | CPT/HCPCS: 20610; 99212; J1100 ==

== ENCOUNTER 2023-08-12 10:35 | Outpatient (AMB) | payer OTHER, SELFPAY ==
--- NOTE | 2023-08-12 10:38 | A.OFFVIS_ITS ---
Intake Intake Visit Reasons: OV-B/L knee injections-last injection 04/01/23 Intake Note: Katelyn is a 63 year old female who presents today for a follow up of her bilateral knee pain, last injections done in bilateral knees on 04/01/2023. She reports that she would like the right knee injected. She also notes that she would like an injection in the right upper glute Allergies ciprofloxacin Allergy (Severe, Verified 12/20/22 09:25) Hives latex [LATEX] Allergy (Intermediate, Verified 12/20/22 09:25) RASH oxycodone [OXYCODONE] Allergy (Intermediate, Verified 12/20/22 09:25) hives, itching Penicillins Allergy (Intermediate, Verified 12/20/22 09:25) HIVES sulfamethoxazole [From Bactrim] Allergy (Intermediate, Verified 12/20/22 09:25) HIVES tramadol [TRAMADOL] Allergy (Intermediate, Verified 12/20/22 09:25) HEADACHES Sulfa (Sulfonamide Antibiotics) Allergy (Mild, Verified 12/20/22 09:25) Itching HPI OV-B/L knee injections-last injection 04/01/23 HPI Details Katelyn is a 63 year old Diabetic woman with bilateral knee OA and a long history of relief from steroid injections. Her most recent knee injections were on 04/01/23 and she would like to repeat this today. She reports pain with daily activity. [facility] Medical History Urinary incontinence Chronic pain syndrome Scar neuroma Asthma Primary osteoarthritis of left knee Primary osteoarthritis of right knee Surgical History History of surgery Social History Alcohol intake: never Patient Tobacco Use Status: Former Tobacco user Tobacco use type: Cigarette Cigarettes Per Day: 40 Years Smoked: 6 Current occupational status: retired Review of Systems Const All systems reviewed & are unremarkable except as noted in HPI and below Physical Exam Const General: no acute distress, alert and awake Orientation/consciousness: patient oriented x3 HEENT Head: Yes normocephalic and Yes atraumatic Eyes EOM: EOMs intact bilaterally Resp Effort & Inspection: normal respiratory effort and able to speak in complete sentences Cardio Jugular venous distension: no JVD Skin General skin exam: turgor normal Rashes: no rashes Neuro General: patient oriented x3 Extrem Other: Medial joint line ttp right knee ttp right SI joint Psych Appearance: grossly normal Affect: normal affect Attitude: cooperative Office Procedures Joint Injection/Drain Joint Injection/Drain Details: Injected 1 mL of Decadron and 3 mL 1% lidocaine and 3 mL of 0.25% Marcaine. Site was prepped using aseptic technique. Patient tolerated the procedure well. Primary Site: right knee Secondary Site: other (left trigger point, SI joint right) Coding - Large joint 31279 - Sacroiliac Procedure code (CPT) selection complete Assessment & Plan Assessment & Plan (1) Primary osteoarthritis of right knee: Code(s): M17.11 - Unilateral primary osteoarthritis, right knee Plan: Injected right knee (2) Chronic right SI joint pain: Code(s): M53.3 - Sacrococcygeal disorders, not elsewhere classified; G89.29 - Other chronic pain Plan: Injected right SI joint region Plan Prepared for Alex Dexter MD by Twan Frost, biomedical equipment tech, on 08/12/23 at 10:39 AM, EST. Coding Level of Care Code Est Pt Level 3 (90898) Diagnoses Primary osteoarthritis of right knee M17.11 Chronic right SI joint pain M53.3; G89.29 CPT Codes Coding - Large joint: 08484 - Large joint ([id number]) Coding - Joint 9: 58303 - Sacroiliac ([id number])
== END 2023-08-12 12:01 | disposition home or self-care (01) ==
PROVIDERS: PCP Family Medicine; Visit Provider Orthopaedic Surgery
DX: M17.11 Unilateral primary osteoarthritis, right knee (principal); M53.3 Sacrococcygeal disorders, not elsewhere classified; G89.29 Other chronic pain
CPT/HCPCS: 20552; 20610; 99213

== ENCOUNTER → 2023-08-12 10:35 | Outpatient (BNVA) | payer OTHER, SELFPAY | PROVIDERS: PCP Family Medicine; Visit Provider Orthopaedic Surgery | DX: M17.11 Unilateral primary osteoarthritis, right knee (principal); M53.3 Sacrococcygeal disorders, not elsewhere classified; G89.29 Other chronic pain | CPT/HCPCS: 20552; 20610; 99212; J0665; J1100 ==

== ENCOUNTER 2024-01-06 12:56 | Outpatient (REF) | payer OTHER, SELFPAY ==
[2024-01-06 14:17] LABS: Estimated Average Glucose 131 mg/dL; Hemoglobin A1c % 6.2 % (<6.0)
[2024-01-06 14:37] LABS: Hematocrit 40.5 % (37.0-47.0); Hemoglobin 13.4 g/dl (12.0-16.0); Mean Corpuscular HGB Conc 33.1 g/dl (31.0-35.0); Mean Corpuscular Hemoglobin 30.9 pg (27.0-33.0); Mean Corpuscular Volume 93.3 fL (80.0-98.0); Mean Platelet Volume 9.2 fL (9.4-12.3); Platelet Count 295 X10*3/uL (160-400); Red Blood Count 4.34 X10*6/uL (4.20-5.50); Red Cell Distribution Width 13.6 % (11.0-16.0); White Blood Count 9.1 X10*3/uL (4.8-10.8)
[2024-01-06 14:55] LABS: Alanine Aminotransferase 28 U/L (0-31); Albumin Level 4.4 g/dL (3.5-5.0); Alkaline Phosphatase 67 U/L (39-117); Anion Gap 12 (12-20); Aspartate Amino Transferase 32 U/L (5-31); Bilirubin Direct 0.2 mg/dL (0.0-0.5); Bilirubin Total 0.6 mg/dL (0.0-1.0); Blood Urea Nitrogen 14 mg/dL (9-16); Calcium 10.3 mg/dL (8.4-10.2); Carbon Dioxide 28 mmol/L (22-29); Chloride 105 mmol/L (96-108); Cholesterol 158 mg/dL (<200); Estimated Glomerular Filt Rate > 60; Glucose Random 117 mg/dL (60-115); HDL Cholesterol 46 mg/dL (>40); LDL Cholesterol Calculated 95 mg/dL (<100); Sodium 141 mmol/L (135-145); Total Protein 8.6 g/dL (6.5-8.0); Triglycerides 89 mg/dL (<150)
[2024-01-06 15:12] LABS: Free T4 (Free Thyroxine) 0.77 ng/dL (0.71-1.85); Thyroid Stimulating Hormone 2.56 uIU/mL (0.32-4.0); Vitamin D 25-OH Total 21.6 ng/mL (>30)
[2024-01-07 08:41] LABS: HBc Num1 0.18 S/CO (0.00-0.79); HBsAGNum1 0.34 S/CO (0.00-0.99); HIV AB/AG Nonreactive (Nonreactive); HIV Num 1 0.08 S/CO (0.00-0.99); Hepatitis B Core Antibody Nonreactive (Nonreactive); Hepatitis B Surface Antigen Negative (Negative); ~HepC Num1 0.16 S/CO (0.00-0.79); ~Hepatitis B Surface Antibody REACTIVE (Nonreactive); ~Hepatitis C Antibody Nonreactive (Nonreactive)
[2024-01-07 08:45] LABS: Hepatitis A Antibody IgG Nonreactive (Nonreactive); ~Hepatitis A Antibody IgG 0.89 S/CO (0.00-0.99)
[2024-01-07 17:38] LABS: Herpes Simplex Type 1 IgG >58.00 index
[2024-01-08 08:43] LABS: RPR Rapid Plasma Reagin NON-REACTIVE (NON-REACTIVE)
== END 2024-01-06 12:57 | disposition home or self-care (01) ==
LOC: HO.HHCL 12:56
PROVIDERS: Visit Provider Family Medicine
DX: E11.9 Type 2 diabetes mellitus without complications (principal)
CPT/HCPCS: 36415; 80048; 80061; 80076; 82306; 83036; 84439; 84443; 85027; 86592; 86695; 86696; 86704; 86706; 86708; 86803; 87340; 87389

== ENCOUNTER 2024-01-09 10:32 | Outpatient (AMB) | payer OTHER, SELFPAY ==
--- NOTE | 2024-01-09 11:08 | A.OFFVIS_ITS ---
Vital Signs 01/09/24 11:09 Height 5 ft 9 in Weight 213 lb BMI 31.5 Intake Visit Reasons: OV-B/L knee injections-last injection 08/12/23 Intake Note: Katelyn is a 63 year old female who presents today for a follow up of her bilateral knee pain, last injections done iin the right knee and right SI joint on 08/12/23. Patient is requesting bilateral hips and bilateral knees to be injected. However I did explain that we can only do two injections due to her diabetes Allergies ciprofloxacin Allergy (Severe, Verified 12/20/22 09:25) Hives latex [LATEX] Allergy (Intermediate, Verified 12/20/22 09:25) RASH oxycodone [OXYCODONE] Allergy (Intermediate, Verified 12/20/22 09:25) hives, itching Penicillins Allergy (Intermediate, Verified 12/20/22 09:25) HIVES sulfamethoxazole [From Bactrim] Allergy (Intermediate, Verified 12/20/22 09:25) HIVES tramadol [TRAMADOL] Allergy (Intermediate, Verified 12/20/22 09:25) HEADACHES Sulfa (Sulfonamide Antibiotics) Allergy (Mild, Verified 12/20/22 09:25) Itching HPI HPI OV-B/L knee injections-last injection 08/12/23: Details: Katelyn is a 63 year old female who presents today for a follow up of her bilateral knee pain, last injections done in the right knee and right SI joint on 08/12/23. These gave her relief. She is complaining again of her trochanteric bursitis on the left. She has received injections at all the sites with benefit. Her hemoglobin A1c is controlled. [facility] Medical History Urinary incontinence Chronic pain syndrome Scar neuroma Asthma Primary osteoarthritis of left knee Primary osteoarthritis of right knee Surgical History History of surgery Social History Alcohol intake: never Patient Tobacco Use Status: Former Tobacco user Tobacco use type: Cigarette Cigarettes Per Day: 40 Years Smoked: 6 Current occupational status: retired Physical Exam Vital Signs: BMI result Body Mass Index 31.5 Const General: no acute distress, alert and awake Orientation/consciousness: patient oriented x3 HEENT Head: Yes normocephalic and Yes atraumatic Eyes EOM: EOMs intact bilaterally Resp Effort & Inspection: normal respiratory effort and able to speak in complete sentences Cardio Jugular venous distension: no JVD Skin General skin exam: turgor normal Rashes: no rashes Neuro General: patient oriented x3 Extrem Other: Medial joint line ttp right knee ttp left greater trochanter Psych Appearance: grossly normal Affect: normal affect Attitude: cooperative Office Procedures Joint Injection/Aspiration Joint Injection/Aspiration Details: Injected 1 mL of Decadron and 3 mL 1% lidocaine and 3 mL of 0.25% Marcaine. Site was prepped using aseptic technique. Patient tolerated the procedure well. Primary Site: right knee Secondary Site: left knee Approach Used: anterolateral Coding - Large joint - Glenohumeral/Tronchanteric Bursa/Intraarticular Procedure code (CPT) selection complete Joint Injection/Aspiration Joint Injection/Aspiration Details: Injected 1 mL of Decadron and 3 mL 1% lidocaine and 3 mL of 0.25% Marcaine. Site was prepped using aseptic technique. Patient tolerated the procedure well. Primary Site: other (left greater trochanter) Approach Used: posterolateral Coding - Large joint Procedure code (CPT) selection complete Assessment & Plan Assessment & Plan (1) Greater trochanteric bursitis of left hip: Code(s): M70.62 - Trochanteric bursitis, left hip Category: Medical Plan: Injected her left hip/greater trochanter. (2) Bilateral primary osteoarthritis of knee: Code(s): M17.0 - Bilateral primary osteoarthritis of knee Category: Medical Plan: I injected bilateral knees. I recommend she continue activity as tolerated and remain active. (3) Diabetes: Code(s): E11.9 - Type 2 diabetes mellitus without complications Category: Medical Plan: I warned her of the hyperglycemic effects of steroid injections. She expressed understanding and has had them before and feels that she understands there effects. Coding Level of Care Code Est Pt Level 4 (12462) Diagnoses Greater trochanteric bursitis of left hip M70.62 Bilateral primary osteoarthritis of knee M17.0 Diabetes E11.9 CPT Codes Coding - Large joint: 81953 - Large joint ([id number]) Coding - Joint 7: 90767 - Glenohumeral/Tronchanteric Bursa/Intraarticular ([id number]) Coding - Large joint: - Large joint ([id number])
[2024-01-09 11:09] VITALS: BMI 31.5
== END 2024-01-09 11:28 | disposition home or self-care (01) ==
PROVIDERS: PCP Family Medicine; Visit Provider Orthopaedic Surgery
DX: M70.62 Trochanteric bursitis, left hip (principal); M17.0 Bilateral primary osteoarthritis of knee; E11.9 Type 2 diabetes mellitus without complications
CPT/HCPCS: 20610; 99214

== ENCOUNTER → 2024-01-09 10:32 | Outpatient (BNVA) | payer OTHER, SELFPAY | PROVIDERS: PCP Family Medicine; Visit Provider Orthopaedic Surgery | DX: M70.62 Trochanteric bursitis, left hip (principal); M17.0 Bilateral primary osteoarthritis of knee; E11.9 Type 2 diabetes mellitus without complications | CPT/HCPCS: 20610; 99212; J0665; J1100 ==

== ENCOUNTER 2024-02-11 08:59 | Outpatient (AMB) | payer OTHER, SELFPAY ==
--- NOTE | 2024-02-11 09:10 | A.OFFVIS_ITS ---
Intake Visit Reasons: Med Review (Mybetriq) Intake Note: Patient presents to the office today for a med review (Myrbetriq) Urology Medication: Myrbetriq Blood Thinner: None Dictionary Editor Required: No Allergies ciprofloxacin Allergy (Severe, Verified 02/11/24 09:10) Hives latex [LATEX] Allergy (Intermediate, Verified 02/11/24 09:10) RASH oxycodone [OXYCODONE] Allergy (Intermediate, Verified 02/11/24 09:10) hives, itching Penicillins Allergy (Intermediate, Verified 02/11/24 09:10) HIVES sulfamethoxazole [From Bactrim] Allergy (Intermediate, Verified 02/11/24 09:10) HIVES tramadol [TRAMADOL] Allergy (Intermediate, Verified 02/11/24 09:10) HEADACHES Sulfa (Sulfonamide Antibiotics) Allergy (Mild, Verified 02/11/24 09:10) Itching Medication List - Last Reconciled 02/11/24 by Juan Rangel MD albuterol sulfate 90 mcg/actuation (Ventolin HFA) 2 puffs inhalation Q4-6H PRN atorvastatin 10 mg PO DAILY cholecalciferol (vitamin D3) 50 mcg PO DAILY estradiol 0.01%(0.1mg/gram) pea-sized to urethra 3 times a week 30 days fluticasone propionate 110 mcg/actuation (Flovent HFA) 1 puff inhalation BID hydrocortisone 2.5% 1 appl topical BID PRN hydroxyzine pamoate 0 mg PO BID metformin ER 500 mg PO DAILY mirabegron ER (Myrbetriq) 50 mg PO BID 30 days HPI Comments Details: Laisha is a pleasant female. She is a patient of Dr. Burden. She is seen for following urologic conditions - overactive bladder - stress urinary incontinence - sling Follow-up from Myrbetriq 50 mg p.o. b.i.d. Was not helpful Given she has burning on urethra will try topical Estrace cream Instructed to use pea-sized amount 3 times a week Has been on 100 mg daily trimethoprim as suppression for chronic cystitis HbA1c improved 01/21 6.4 Urge incontinence Previous medications include darifenacin, Myrbetriq with minimal effect Would still consider redoing Botox if HbA1c a little better controlled Prior treatment includes Botox in 2014 with good effect, was going to be repeated and early 2019 to however she wished postponed - does not think Botox was helpful early 2021 injection COUNTS INCLUDE 234 BEDS AT THE [facility] Medical History Urinary incontinence Chronic pain syndrome Scar neuroma Asthma Primary osteoarthritis of left knee Primary osteoarthritis of right knee Surgical History History of surgery Social History Alcohol intake: never Patient Tobacco Use Status: Former Tobacco user Tobacco use type: Cigarette Cigarettes Per Day: 40 Years Smoked: 6 Current occupational status: retired Review of Systems Const Denies chills and Denies fever(s) Card Reports no additional complaints and Denies syncope Resp Denies cough GI Denies abdominal pain and Denies heartburn Reports as per HPI and Denies change in libido Neuro Denies syncope Psych Denies change in libido Endo Denies change in libido Physical Exam Const General: cooperative, healthy appearing, comfortable and no acute distress Orientation/consciousness: patient oriented x3 HEENT Face and sinus: Yes normal facial exam Mouth: moist mucous membranes Neck Neck: Yes normal visual inspection, Yes full ROM and Yes trachea midline Chest Chest palpation & inspection: normal inspection of the chest Resp Effort & Inspection: normal respiratory effort, able to speak in complete sentences and no respiratory distress GI Inspection: Yes normal to inspection Back/Spine/Pelvis Cervical Spine: normal cervical lordosis Thoracic/Lumbar Spine: thoracic and lumbar spine normal to inspection Skin General skin exam: no rashes or lesions noted Neuro General: patient oriented x3, gait normal, tone normal and moves all extremities Extrem General: Yes normal to inspection and Yes capillary refill normal Assessment & Plan Assessment & Plan (1) Chronic cystitis: Code(s): N30.20 - Other chronic cystitis without hematuria Category: Medical (2) Urinary incontinence: Code(s): R32 - Unspecified urinary incontinence Category: Medical Plan Topical estrogen Trial Six-month follow-up MYSQL DATABASE ADMINISTRATOR Orders: Orders AMB Urinalysis Automated Today R30.0 - Dysuria Medications: New estradiol 0.01%(0.1mg/gram) pea-sized to urethra 3 times a week 30 days 42.5 grams 2RF N36.2 - Urethral caruncle, N39.0 - Urinary tract infection, site not specified, N95.2 - Postmenopausal atrophic vaginitis, R32 - Unspecified urinary incontinence Patient Instructions: Imaging studies, laboratory and physical exam results were discussed and reviewed in detail. No major barriers to patient understanding were identified. An opportunity to ask questions regarding the treatment plan was provided. All questions were answered. The patient expressed understanding and agreement with the above treatment plan. The patient is aware they should contact our office by phone for worsening of their current condition or the appearance of new urologic symptoms. Compliance is encouraged with any medications and followup testing that is ordered. It is a privilege to participate in the urologic care of your patient. If you have any questions or concerns regarding treatment for the above conditions, or other urologic issues, please do not hesitate to contact me. The office telephone contact is [phone]. This note is constructed using voice recognition software. While every effort has been made to ensure accuracy professor of nursing errors may have been included. Yours sincerely, Dr Juan Rangel MD, [facility] - Urology Providers of Expert, Compassionate Care for the Genitourinary System Coding Level of Care Code Est Pt Level 4 (19186) Diagnoses Chronic cystitis N30.20 Urinary incontinence R32
== END 2024-02-11 09:46 | disposition home or self-care (01) ==
PROVIDERS: PCP Family Medicine; Visit Provider Urology
DX: N30.20 Other chronic cystitis without hematuria (principal); R32 Unspecified urinary incontinence
CPT/HCPCS: 99214

== ENCOUNTER → 2024-02-11 08:59 | Outpatient (BNVA) | payer OTHER, SELFPAY | PROVIDERS: PCP Family Medicine; Visit Provider Urology | DX: N32.81 Overactive bladder (principal); N39.3 Stress incontinence (female) (male); N30.20 Other chronic cystitis without hematuria | CPT/HCPCS: 99212 ==

== ENCOUNTER 2024-03-31 10:31 | Outpatient (AMB) | payer OTHER, SELFPAY ==
--- NOTE | 2024-03-31 10:34 | MHC.OFFVIS ---
Intake Visit Reasons: abdominal wall abscess Intake Note: Patient referred by pcp Dr. Kan for abdominal wall abscess. Patient unsure location of abscess. Patient c/o: no concerns. Has abd US scheduled on 04-14-24. Commodity Merchant Required: No Accompanied by: Self / Same As Patient Allergies ciprofloxacin Allergy (Severe, Verified 03/31/24 10:45) Hives latex [LATEX] Allergy (Intermediate, Verified 03/31/24 10:45) RASH oxycodone [OXYCODONE] Allergy (Intermediate, Verified 03/31/24 10:45) hives, itching Penicillins Allergy (Intermediate, Verified 03/31/24 10:45) HIVES sulfamethoxazole [From Bactrim] Allergy (Intermediate, Verified 03/31/24 10:45) HIVES tramadol [TRAMADOL] Allergy (Intermediate, Verified 03/31/24 10:45) HEADACHES Sulfa (Sulfonamide Antibiotics) Allergy (Mild, Verified 03/31/24 10:45) Itching HPI Comments Details: Patient presents for evaluation/follow-up for abdominal wall cellulitis. She presents here now and claims that she has no abdominal issues or or infections that she remembers. Patient was not the most insightful regarding her medical history. She is scheduled on 04/14 for an ultrasound of her abdomen to evaluate elevated liver function tests. She does not have abdominal symptoms per se but occasional have lower abdominal discomfort after meals. Patient was never had endoscopy or colonoscopy that she recalls. She has no history of jaundice. Chart was reviewed and patient evaluated [facility] Medical History Urinary incontinence Chronic pain syndrome Scar neuroma Asthma Primary osteoarthritis of left knee Primary osteoarthritis of right knee Surgical History History of surgery Social History Alcohol intake: never Patient Tobacco Use Status: Former Tobacco user Tobacco use type: Cigarette Cigarettes Per Day: 40 Years Smoked: 6 Current occupational status: retired Physical Exam Eyes Other: Anicteric GI Other: Abdomen corpulent, soft, moderately sized pannus. Nontender. A resolving carbuncle of the right mid abdominal wall but no other obvious evidence of infections, abscesses or obvious hernias. Assessment & Plan Assessment & Plan (1) Cellulitis: Code(s): L03.90 - Cellulitis, unspecified Category: Surgical Plan At present, no acute surgical issues. We will follow the results of the patient's ultrasound to see if any other surgical intervention may be required for this. This was reviewed with the patient. She will otherwise follow-up p.r.n.. All questions answered. Coding Level of Care Code New Pt Level 4 (30256) Diagnoses Cellulitis L03.90
== END 2024-03-31 10:49 | disposition home or self-care (01) ==
PROVIDERS: PCP Family Medicine; Visit Provider Surgery
DX: L03.90 Cellulitis, unspecified (principal)
CPT/HCPCS: 99204

== ENCOUNTER → 2024-03-31 10:31 | Outpatient (BNVA) | payer OTHER, SELFPAY | PROVIDERS: PCP Family Medicine; Visit Provider Surgery | DX: L03.311 Cellulitis of abdominal wall (principal); L02.231 Carbuncle of abdominal wall; E65 Localized adiposity | CPT/HCPCS: 99202 ==

== ENCOUNTER 2024-04-10 09:54 | Outpatient (AMB) | payer OTHER, SELFPAY ==
--- NOTE | 2024-04-10 10:00 | MHC.OFFVIS ---
Vital Signs 04/10/24 10:01 Height 5 ft 9 in Weight 213 lb BMI 31.5 Intake Visit Reasons: B/L Knee Injection Intake Note: Katelyn is a 64 year old female who presents today for a follow up of her bilateral knee OA. Bilateral knees were last injected on 01/09/24, which were helpful and she would like to repeat injections today. Patient would like to receive Bilateral knee injections today. Allergies ciprofloxacin Allergy (Severe, Verified 03/31/24 10:45) Hives latex [LATEX] Allergy (Intermediate, Verified 03/31/24 10:45) RASH oxycodone [OXYCODONE] Allergy (Intermediate, Verified 03/31/24 10:45) hives, itching Penicillins Allergy (Intermediate, Verified 03/31/24 10:45) HIVES sulfamethoxazole [From Bactrim] Allergy (Intermediate, Verified 03/31/24 10:45) HIVES tramadol [TRAMADOL] Allergy (Intermediate, Verified 03/31/24 10:45) HEADACHES Sulfa (Sulfonamide Antibiotics) Allergy (Mild, Verified 03/31/24 10:45) Itching HPI HPI B/L Knee Injection: Details: Katelyn is a 64 year old female who presents today for a follow up of her bilateral knee OA. Bilateral knees were last injected on 01/09/24, which were helpful and she would like to repeat injections today. Patient would like to receive Bilateral knee injections today. FORMERLY [facility] Medical History Urinary incontinence Chronic pain syndrome Scar neuroma Asthma Primary osteoarthritis of left knee Primary osteoarthritis of right knee Surgical History History of surgery Social History Alcohol intake: never Patient Tobacco Use Status: Former Tobacco user Tobacco use type: Cigarette Cigarettes Per Day: 40 Years Smoked: 6 Current occupational status: retired Physical Exam Vital Signs: BMI result Body Mass Index 31.5 Extrem Other: ttp medial joint line bilateral knees Office Procedures Joint Injection/Aspiration Joint Injection/Aspiration Details: Injected 1 mL of Decadron and 3 mL 1% lidocaine and 3 mL of 0.25% Marcaine. Site was prepped using aseptic technique. Patient tolerated the procedure well. Primary Site: right knee Secondary Site: left knee Approach Used: anterolateral Coding 65859 - Large joint 97204 - Glenohumeral/Tronchanteric Bursa/Intraarticular Procedure code (CPT) selection complete Assessment & Plan Assessment & Plan (1) Bilateral primary osteoarthritis of knee: Code(s): M17.0 - Bilateral primary osteoarthritis of knee Category: Medical Plan: And is here today with bilateral knee OA. She is pretty functional given the extent of her arthritis and has benefitted from steroid injections. I injected bilateral knees today. Follow up p.r.n.. Coding Level of Care Code Est Pt Level 3 (71631) Diagnoses Bilateral primary osteoarthritis of knee M17.0 CPT Codes Coding - 10493 Large joint: 57090 - Large joint ([id number]) Coding - Joint 7: 86010 - Glenohumeral/Tronchanteric Bursa/Intraarticular ([id number])
[2024-04-10 10:01] VITALS: BMI 31.5
== END 2024-04-10 10:16 | disposition home or self-care (01) ==
PROVIDERS: PCP Family Medicine; Visit Provider Orthopaedic Surgery
DX: M17.0 Bilateral primary osteoarthritis of knee (principal)
CPT/HCPCS: 20610

== ENCOUNTER → 2024-04-10 09:54 | Outpatient (BNVA) | payer OTHER, SELFPAY | PROVIDERS: PCP Family Medicine; Visit Provider Orthopaedic Surgery | DX: M17.0 Bilateral primary osteoarthritis of knee (principal) | CPT/HCPCS: 20610; J0665; J1100; J2003 ==

== ENCOUNTER 2024-04-14 11:25 | Outpatient (REF) | payer OTHER, SELFPAY ==
--- NOTE | ~2024-04-14 | MM_ITS ---
EXAMINATION: MM SCREENING DIGITAL BREAST TOMOSYNTHESIS, BILATERAL CLINICAL INFORMATION: Screening. Asymptomatic. COMPARISON: Mammography: Comparison is made with available priors TECHNIQUE: Digital breast mammography with tomosynthesis is performed in both the craniocaudal and mediolateral oblique views along with computer-aided detection (CAD). FINDINGS: There are scattered areas of fibroglandular density (ACR BI-RADS breast composition Category b). There are no significant masses, abnormal calcifications, or other abnormalities. MM/MM tomosynthesis screening BI IMPRESSION: No mammographic evidence of malignancy. ASSESSMENT: BI-RADS BI-RADS 1 - Negative RECOMMENDATION: Routine annual mammography screening. 1 year F/U This examination should not preclude the clinical evaluation of a suspicious palpable abnormality. This patient's information was entered into a reminder system with a target due date for their next mammogram. Electronically signed by: Jaja Orozco DO 04/21/2024 12:11 PM EDT
--- NOTE | ~2024-04-14 | US_ITS ---
EXAMINATION: US ABDOMEN COMPLETE CLINICAL INFORMATION: Elevated LFTs. COMPARISON: Ultrasound kidneys and bladder 09/14/2020 and 06/03/2018. TECHNIQUE: Real-time imaging of the abdominal viscera. Color Doppler exam used. FINDINGS: PANCREAS: Normal. ABDOMINAL AORTA: The proximal, mid, and distal segments are normal in caliber. INFERIOR VENA CAVA: Visualized portions are normal. LIVER: The liver is normal in size. The liver contour is normal. Diffuse increased echogenicity of liver parenchyma consistent with fatty change. No focal hepatic lesion. There is no intrahepatic biliary duct dilatation seen. GALLBLADDER: Normal. The gallbladder is physiologically distended without evidence of stones, sludge, polyps, wall thickening or pericholecystic fluid. COMMON BILE DUCT: Normal in caliber measuring 0.3 cm in diameter. RIGHT KIDNEY: Normal. No hydronephrosis. No renal calculi or focal parenchymal lesions. The kidney measures 10.3 cm in maximum dimension. LEFT KIDNEY: The kidney demonstrates normal variant of lobulations. No hydronephrosis. No renal calculi or focal parenchymal lesions. The kidney measures 11.9 cm in maximum dimension. SPLEEN: Normal. The spleen measures 11.9 cm in maximum dimension. FREE FLUID: None. US/US abdomen complete IMPRESSION: Normal ultrasound of the abdomen. Electronically signed by: Tello Hawkins MD 04/27/2024 02:58 PM EDT
== END 2024-04-14 11:26 | disposition home or self-care (01) ==
LOC: HO.US 11:25
PROVIDERS: PCP Family Medicine; Visit Provider Family Medicine
DX: R74.01 Elevation of levels of liver transaminase levels (principal); Z12.31 Encounter for screening mammogram for malignant neoplasm of breast
CPT/HCPCS: 76700; 77063; 77067

== ENCOUNTER 2024-04-14 12:28 | Outpatient (REF) | payer OTHER, SELFPAY | END 2024-04-14 12:29 | disposition home or self-care (01) | LOC: HO.MAMMO 12:28 | PROVIDERS: PCP Family Medicine; Visit Provider Family Medicine | DX: Z13.89 Encounter for screening for other disorder (principal) ==

== ENCOUNTER → 2024-04-14 12:45 | Outpatient (BNV) | payer OTHER, SELFPAY | PROVIDERS: PCP Family Medicine; Visit Provider Internal Medicine | DX: Z12.31 Encounter for screening mammogram for malignant neoplasm of breast (principal) | CPT/HCPCS: 77063; 77067 ==

== ENCOUNTER 2024-05-04 11:31 | Outpatient (AMB) | payer OTHER, SELFPAY ==
--- NOTE | 2024-05-04 11:25 | MHC.OFFVIS ---
Vital Signs 05/04/24 11:26 Height 5 ft 9 in Weight 211 lb 10.3 oz BMI 31.3 BP 120/80 Blood Pressure Location Lt brachial Position Sitting Intake Visit Reasons: Results of US Intake Note: Patient is seen in office for ultrasound results, following abdominal wall abscess. 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 Accompanied by: Other Relationship Allergies ciprofloxacin Allergy (Severe, Verified 05/04/24 11:26) Hives latex [LATEX] Allergy (Intermediate, Verified 05/04/24 11:26) RASH oxycodone [OXYCODONE] Allergy (Intermediate, Verified 05/04/24 11:) hives, itching Penicillins Allergy (Intermediate, Verified 05/04/24 11:) HIVES sulfamethoxazole [From Bactrim] Allergy (Intermediate, Verified 05/04/24 11:) HIVES tramadol [TRAMADOL] Allergy (Intermediate, Verified 05/04/24 11:) HEADACHES Sulfa (Sulfonamide Antibiotics) Allergy (Mild, Verified 05/04/24 11:) Itching HPI Comments Details: Patient presents because of a right buttock soft tissue mass which he has had indeterminate time. It is increasing in size, and, symptomatic. She would like to have it excised. Patient had sonogram of the abdomen which was within normal limits. Patient was known to me from recent visit for abdominal wall cellulitis. FORMERLY [facility], [facility] Medical History Urinary incontinence Chronic pain syndrome Scar neuroma Asthma Primary osteoarthritis of left knee Primary osteoarthritis of right knee Surgical History History of surgery Social History Alcohol intake: never Patient Tobacco Use Status: Former Tobacco user Tobacco use type: Cigarette Cigarettes Per Day: 40 Years Smoked: 6 Current occupational status: retired Physical Exam Vital Signs: Last Vital Signs BP 120/80 05/04/24 11:26 BMI result Body Mass Index 31.3 Chest Other: Chest breath sounds bilaterally, HS 1 in 2 GI Other: Abdomen corpulent, soft, benign Extrem Other: Patient was a right buttock soft tissue mass measuring roughly 5 x 4 cm consistent with a deeply situated lipoma Assessment & Plan Assessment & Plan (1) Mass of soft tissue of hip: Code(s): M79.89 - Other specified soft tissue disorders Category: Surgical Plan Risks, benefits, alternatives of excision of right buttock soft tissue mass were reviewed with the patient included but not limited to bleeding, infection, recurrence, numbness, pain, scarring, seroma formation , wound dehiscence and the patient wishes to proceed. All questions answered. Arrangements were made for this. Coding Level of Care Code Est Pt Level 5 (89990) Diagnoses Mass of soft tissue of hip M79.89
[2024-05-04 11:26] VITALS: BP 120/80; BMI 31.3
== END 2024-05-04 11:37 | disposition home or self-care (01) ==
LOC: HO.HGS 11:31
PROVIDERS: PCP Family Medicine; Visit Provider Surgery
DX: M79.89 Other specified soft tissue disorders (principal)
CPT/HCPCS: 99213

== ENCOUNTER → 2024-05-04 11:31 | Outpatient (BNVA) | payer OTHER, SELFPAY | PROVIDERS: PCP Family Medicine; Visit Provider Surgery | DX: M79.89 Other specified soft tissue disorders (principal) | CPT/HCPCS: 99212 ==

== ENCOUNTER 2024-07-16 | Outpatient (REF) | payer OTHER, SELFPAY ==
--- NOTE | 2024-07-14 13:58 | HO.ANESPROP2 ---
HPI - Anesthesia Eval Consult details Narrative: 64yo F for Wide Local Excision Buttocks Mass PMFSH Active Problems Active Problems: All Active Problems Mass of soft tissue of hip (Acute) Cellulitis (Acute) Chronic right SI joint pain (Acute) Chronic cystitis (Acute) Diabetes (Acute) Overactive bladder (Acute) Greater trochanteric bursitis of left hip (Acute) Urinary incontinence (Acute) Bilateral primary osteoarthritis of knee (Acute) Heterotopic ossification of bone (Acute) Status post left hip replacement (Acute) Chronic pain syndrome (Acute) Scar neuroma (Acute) Lymphedema (Acute) Left hip pain (Acute) Varicose veins of left lower extremity with inflammation (Acute) Primary osteoarthritis of left knee (Acute) Primary osteoarthritis of right knee (Acute) Past Medical History Medical History Urinary incontinence Chronic pain syndrome Scar neuroma Asthma Primary osteoarthritis of left knee Primary osteoarthritis of right knee Surgical History Surgical History History of surgery Social History Social History Alcohol intake: never Patient Tobacco Use Status: Former Tobacco user Tobacco use type: Cigarette Cigarettes Per Day: 40 Years Smoked: 6 Current occupational status: retired Meds Allergies Allergy/AdvReac Type Severity Reaction Status Date / Time ciprofloxacin Allergy Severe Hives Verified 05/04/24 11:26 latex [LATEX] Allergy Intermediate RASH Verified 05/04/24 11:26 oxycodone [OXYCODONE] Allergy Intermediate hives, Verified 05/04/24 11:26 itching Penicillins Allergy Intermediate HIVES Verified 05/04/24 11:26 sulfamethoxazole Allergy Intermediate HIVES Verified 05/04/24 11:26 [From Bactrim] tramadol [TRAMADOL] Allergy Intermediate HEADACHES Verified 05/04/24 11:26 Sulfa (Sulfonamide Allergy Mild Itching Verified 05/04/24 11:26 Antibiotics) Home Medications ?Medication ?Instructions ?Recorded ?Confirmed ?Last Taken ?Type albuterol sulfate 90 mcg/actuation 2 puff inhalation Q4-6H PRN 04/29/20 05/04/24 Unknown History aerosol inhaler (Ventolin HFA) fluticasone propionate 110 1 puff inhalation BID 04/29/20 05/04/24 Unknown History mcg/actuation HFA aerosol inhaler (Flovent HFA) hydrocortisone 2.5 % topical cream 1 applic topical BID PRN 04/29/20 05/04/24 Unknown History metformin 500 mg tablet,extended 500 mg PO DAILY 07/25/21 05/04/24 Unknown History release 24 hr cholecalciferol (vitamin D3) 50 50 mcg PO DAILY 10/25/21 05/04/24 Unknown History mcg (2,000 unit) capsule hydroxyzine pamoate 25 mg capsule 0 mg PO BID 11/24/21 05/04/24 Unknown History cetirizine 10 mg tablet 10 mg PO DAILY 03/31/24 05/04/24 Unknown History Assessment and Plan Assessment Anesthesia Assessment: Chart Reviewed
--- NOTE | 2024-07-15 09:58 | MHC.SHP ---
Pre-Procedural Eval Section A - 24 Hr Update-Section A only Date of Service: 07/16/24 The patient is an INPATIENT: No Changes since office visit: No Cold of Flu in the past 2 weeks, No New Medical Problems, No Changes in Medication and No Patient answered all questions Section B - Complete if H&P > 30 days Chief Complaint: Other specified soft tissue disorders Allergies: Allergies Allergy/AdvReac Type Severity Reaction Status Date / Time ciprofloxacin Allergy Severe Hives Verified 05/04/24 11:26 latex [LATEX] Allergy Intermediate RASH Verified 05/04/24 11:26 oxycodone [OXYCODONE] Allergy Intermediate hives, Verified 05/04/24 11:26 itching Penicillins Allergy Intermediate HIVES Verified 05/04/24 11:26 sulfamethoxazole Allergy Intermediate HIVES Verified 05/04/24 11:26 [From Bactrim] tramadol [TRAMADOL] Allergy Intermediate HEADACHES Verified 05/04/24 11:26 Sulfa (Sulfonamide Allergy Mild Itching Verified 05/04/24 11:26 Antibiotics) Review of Systems Sugical H&P ROS: Negative: Constitution, Cardiovascular, Respiratory, Neurological, Psychiatric, Hem-Onc, Allergic/Immunologic, Gastrointestinal, Genitourinary, Musculoskeletal, Integumentary, Endocrine and Eyes/Ears/Nose/Throat Exam Surgical H&P Exam: Normal: HEENT, Normal: Heart, Normal: Lungs, Normal: Extremities, Normal: Abdomen, Normal: Skin and Normal: Neurological Plan I have reviewed the history and physical and performed a pertinent physical examination on my patient. No changes have occurred unless specified. Time Spent With Patient Time: Total time managing care of this patient today ____ minutes.
--- OUTSIDE RECORDS SUMMARY | 2024-12-22 14:11 | XMS_ITS | Encounter Summary ---
Author Organization [employer] Address [address] [facility] 7t [place] [address] Care Team Providers Care Fast Brim Pouncer Name Role Phone Brigitte Kan DO Primary Care Provider [phone] Encounter Details Date Type Department Care Team (Latest Contact Info) Description 02/22/2021 Abstract [facility] CONVERSIONS Dental, Provider, DDS Social History Tobacco [...] Description 04/07/2025 11:00 AM EDT Office Visit [facility] OPTOMETRY [address] [place] [address] Mahesh, [place], OD [address] [place] [address] documented as of this encounter Visit Diagnoses Not on filedocumented in this encounter Care Teams Fast Brim Pouncer Relationship Specialty Start Date End Date Brigitte Kan DO [address] [place] [address] PCP - General Family Medicine 01/15/14 documented as of this encounter
== END 2024-07-16 00:01 | disposition home or self-care (01) ==
LOC: CF
PROVIDERS: PCP Family Medicine; Visit Provider Surgery
DX: M79.89 Other specified soft tissue disorders (principal); M17.0 Bilateral primary osteoarthritis of knee
CPT/HCPCS: 20610; 99212; J0665; J1100; J2003

== ENCOUNTER 2024-07-16 10:24 | Outpatient (AMB) | payer OTHER, SELFPAY ==
[2024-07-16 10:44] VITALS: BMI 31.2
--- NOTE | 2024-07-16 10:44 | MHC.OFFVIS ---
Vital Signs 07/16/24 10:44 Height 5 ft 9 in Weight 211 lb BMI 31.2 Intake Visit Reasons: OV- B/L knee OA, last inj 04/10/24 Intake Note: Katelyn is a 64 year old female who presents today for a follow up of her bilateral knee OA. Bilateral knee injections were last administered on 04/10/24. Other injections administered over 2 almost one year ago. She reports that she does get releif with the cortisone, but she is inquiring about gel injections as she has heard that they may offer longer periods of relief. She would like ot repeat cortisone injections today Allergies ciprofloxacin Allergy (Severe, Verified 05/04/24 11:26) Hives latex [LATEX] Allergy (Intermediate, Verified 05/04/24 11:26) RASH oxycodone [OXYCODONE] Allergy (Intermediate, Verified 05/04/24 11:26) hives, itching Penicillins Allergy (Intermediate, Verified 05/04/24 11:26) HIVES sulfamethoxazole [From Bactrim] Allergy (Intermediate, Verified 05/04/24 11:26) HIVES tramadol [TRAMADOL] Allergy (Intermediate, Verified 05/04/24 11:26) HEADACHES Sulfa (Sulfonamide Antibiotics) Allergy (Mild, Verified 05/04/24 11:26) Itching HPI HPI OV- B/L knee OA, last inj 04/10/24: Details: Katelyn is a 64 year old female who presents today for a follow up of her bilateral knee OA. Bilateral knee injections were last administered on 04/10/24. Other injections administered over 2 almost one year ago. She reports that she does get releif with the cortisone, but she is inquiring about gel injections as she has heard that they may offer longer periods of relief. [facility] Medical History Urinary incontinence Chronic pain syndrome Scar neuroma Asthma Primary osteoarthritis of left knee Primary osteoarthritis of right knee Surgical History History of surgery Social History Alcohol intake: never Patient Tobacco Use Status: Former Tobacco user Tobacco use type: Cigarette Cigarettes Per Day: 40 Years Smoked: 6 Current occupational status: retired Physical Exam Vital Signs: BMI result Body Mass Index 31.2 Extrem Other: Medial compartment tenderness to palpation bilaterally Office Procedures Joint Inj/Aspir; Non-Pain Clin Joint Injection/Drain Details: Injected 1 mL of Decadron and 3 mL 1% lidocaine and 3 mL of 0.25% Marcaine. Site was prepped using aseptic technique. Patient tolerated the procedure well. Shoulders, Hips, Knees, Knee Large Joint Injection : Bilateral Knee Coding Procedure code (CPT) selection complete Assessment & Plan Assessment & Plan (1) Bilateral primary osteoarthritis of knee: Code(s): M17.0 - Bilateral primary osteoarthritis of knee Category: Medical Plan: Bilateral knee OA that is severe. Her symptoms are manageable. Injections have been helpful. At she is interested in viscosupplementation. If current steroid injections are not sufficiently helpful she will contact me and we will consider viscosupplementation. Coding Level of Care Code Est Pt Level 3 (08538) Diagnoses Bilateral primary osteoarthritis of knee M17.0 CPT Codes Shoulders, Hips, Knees, - Knee Large Joint Injection : Bilateral Knee ([id number])
--- OUTSIDE RECORDS SUMMARY | 2024-07-16 12:28 | XMS_ITS | Data Portability ---
Author Organization [employer] [facility] [employer] Address [address] [place] [address] Care Team Providers Care Front Desk Lead Name Role Phone [facility] Referring Provider HIM [facility] OTHER Assessment Encounter Date Assessment Date Assessment LastModified by Organization Details LastModified Time 07/30/2023 07/30/2023 I have reviewed and agree with the assessment and plan as documented by the service order taker. I provided real-time medical direction for this encounter and was immediately available to provide additional phone-based assistance as needed. 63F with low back pain, hx of chronic back pain. No weakness or focal deficits. No numbness. Pt denies any trauma. Received toradol recently with good effect. Pt requesting prednisone as she states it helps. O/E:Vitals stable, no acute findings. physical exam unremarkable. No evidence for trauma. Will provide Toradol 15,g x1 and prednisone 40mg for 5 days. Pt encouraged to follow up with PCP. Red flags and return precautions discussed. paysola Not available 07/30/2023 19:42:34 04/26/2024 04/26/2024 I have reviewed and agree with the assessment and plan as documented by the service order taker. I provided real-time medical direction for this encounter and was immediately available to provide additional phone-based assistance as needed. 64F presenting with right lumbar pain x 2 weeks, 04/09 no radiation. No numbness or tingling. No n/v/d. Seen in ED on 04/22 for similar complaints and had ultrasound done, no results available. Had Tylenol yesterday with no improvement. Unable to take ibuprofen PO. No urinary symptoms. Pt requesting toradol today. Denies any hx of kidney issues. No bowel changes. Reviewed previous visits, pt with hx of lumbar pain in the past, states it is similar. Denies any trauma. O/E: Abdominal exam soft, pain to right sided lumbar region. Normal gait. Imp: Lumbar back pain, no red flags on examination. For toradol 15mg x1 and Advised to take tylenol regularly. Return precautions discussed. tra Not available 04/26/2024 21:49:35 04/27/2024 04/27/2024 I provided real -time medical direction via phone for this encounter, and was available for additional phone based assistance as needed. I have reviewed and agree with the Assessment and Plan as documented by the [employer]. We discussed the diagnostic uncertainty of home visits and the risk associated with this. In this case the patient and I felt this to be an acceptable and reasonable amount of risk given the benefit of avoiding an ED visit. The patient given the opportunity to ask questions. Advised if develops CP/severe SOB/turning blue/uncontrolle d n/v/d or black/bloody emesis or stool/intolerabl e leg pain, acute loss of bowel or bladder control or focal severe numbness or acute weakness /high fever to call 911-she verbalized understanding of instructions to the medic [email or web address] Not available 04/27/2024 15:22:54 Plan of Treatment Reminders Order Date Submit Date Provider Last Modified By Organization Details Last Modified Time Details Appointments None recorded. Lab BMP, serum or plasma 2023 024 [email or web address], [address], 15:35:24 Referral None recorded. Procedures None recorded. Surgeries None recorded. Imaging None recorded. Medication Orders ketorolac 30 mg/mL injection solution [email or web address] [place] [address] Pharmacy, [address] [place] [address], [id number], 10:38:58 ketorolac 30 mg/mL (1 mL) injection solution 2023 024 [facility], [address] [place] [address], [id number], 19:42:58 prednisone 20 mg tablet 2023 024 [facility], [address] [place], [place], [id number], 4 15:38:27 ketorolac 30 mg/mL injection solution 2023 024 [email or web address] [facility], [address] [place], [place], [id number], 4 21:49:39 ketorolac 30 mg/mL injection solution 2023 024 [email or web address] 0 [facility], [address] [place], [place], [id number], 4 15:35:01 prednisone 20 mg tablet 2023 [facility], [address] [place] [address], [id number], 4 16:49:17 ketorolac 60 mg/2 mL intramuscul ar solution 2023 024 [facility], [address] [place], [place], [id number], 4 16:08:04 prednisone 20 mg tablet 2023 [facility], [address] [place] [address], [id number], 14:23:19 prednisone 20 mg tablet 2023 024 [facility], [address] [place], [place], [id number], 4 16:08:04 pantoprazol e 20 mg tablet,jenny yed release 2023 [facility], [address] [place], [place], [id number], 4 14:23:19 Patient TargetsNo targets recorded. Patient InstructionsNo instructions recorded. Reason for Referral None Reported. Results Created Date Observation Date Name Description Value Unit Range Abnormal Flag Note LastModifiedBy Organization Detail LastModifiedTime 07/15/19 24 07/15/2023 [email or web address] geiger se, blood Blood Glucose: mg/dl 375 Not Available Main - [address], [address], 07/15/2023 11:47:57 07/15/19 24 07/15/2023 elect tim diogr am No observ ation record ed. [email or web address] [address], [address], 07/15/2023 13:28:30 Result Notes None recorded. Procedures Surgical History None recorded. Imaging Results Imaging Date Name Status LastModified by Organization Details LastModified Time 07/15/2023 electrocardiogram completed [address], [address], 07/15/2023 13:28:30 Procedure Notes None recorded. Medical Equipment None Reported. Allergies Allergen ID Allergen Name Allergen Category Reaction Reaction Severity Criticality Documentation Date Start Date Code Code System Note Provider Name and Address Organization Details Recorded Time 2946 Bactrim medicatio n Not available Not available Not available 01/31/2023 32329 9 RxNorm Not Available [facility] 4 03:35:07 2947 Medicinal product containin g penicilli n and acting as antibacte rial agent (product) medicatio n Not available Not available Not available 01/31/2023 15550 05 SNOMED Not Available [facility] - [facility] 4 03:35:07 4363 latex environme nt,medica tion Not available Not available Not available 07/15/2023 57572 91 RxNorm Not Available [facility] - [facility] 4 03:35:07 Medications Name Sig Start Date Stop Date Status Note LastModified by Organization Details LastModified Time multivitamin tablet TAKE 1 TABLET BY MOUTH ONCE DAILY IN THE MORNING active Not Available Not Available Not Available tolterodine ER 2 mg capsule,exte nded release 24 hr TAKE 1 CAPSULE BY MOUTH DAILY active Not Available Not Available Not Available ketorolac 15 mg/mL injection solution Inject 1 mL as needed by intramuscul ar route. 2022 active Not Available Not Available Not Avai lable pioglitazone 15 mg tablet TAKE 1 TABLET BY MOUTH EVERY DAY IN THE MORNING active Not Available Not Available No t Available prednisone 10 mg tablet TAKE 6 TABLETS DAILY FOR 2 DAYS, THEN 5 TABLETS DAILY FOR 2 DAYS, 4 TABLETS DAILY FOR 2 DAYS, 3 TABLETS DAILY FOR 2 DAYS, 2 TABLETS DAILY FOR 2 DAYS, 1 TABLET DAILY FOR 2 DAYS, 1/2 TABLET DAILY FOR 2 DAYS. active Not Available Not Available No t Available tizanidine 2 mg tablet TAKE 1 TABLET BY MOUTH EVERY 8 HOURS NEEDED FOR MUSCLE SPASMS active Not Available Not Available No t Available trazodone 50 mg tablet TAKE 1 TABLET BY MOUTH AT BEDTIME active Not Available Not Available No t Available cetirizine 10 mg tablet TAKE 1 TABLET BY MOUTH EVERY DAY active Not Available Not Available No t Available azithromycin 250 mg tablet TAKE 2 TABLETS BY MOUTH ON DAY 1, THEN TAKE 1 TABLET DAILY ON DAYS 2-5 active Not Available Not Available No t Available tizanidine 4 mg tablet TAKE 1 TABLET BY MOUTH EVERY 6 HOURS NEEDED FOR MUSCLE SPASMS FOR UP TO 10 DAYS active Not Available Not Available No t Available tolterodine ER 4 mg capsule,exte nded release 24 hr TAKE 1 CAPSULE BY MOUTH EVERY DAY active Not Available Not Available No t Available cephalexin 250 mg capsule TAKE 1 CAPSULE BY MOUTH EVERY DAY active Not Available Not Available No t Available prednisone 20 mg tablet TAKE 1 TABLET BY MOUTH EVERY DAY WITH A MEAL FOR 5 DAYS active Not Available Not Available No t Available Pyridium 100 mg tablet Take 1 tablet 3 times a day by oral route for 2 days. 2022 active Not Available Not Available Not Avai lable metronidazol e 500 mg tablet TAKE 1 TABLET BY MOUTH THREE TIMES DAILY FOR 7 DAYS. AVOID ALCOHOLIC BEVERAGES WHILE TAKING. active Not Available Not Available No t Available acetaminophe n 300 mg-codeine 30 mg tablet TAKE 1 TABLET BY MOUTH THREE TIMES DAILY IN THE MORNING, AT NOON, AND AT BEDTIME NEEDED FOR SEVERE PAIN FOR UP TO 5 DAYS active Not Available Not Available No t Available ciprofloxaci n 250 mg tablet TAKE 1 TABLET BY MOUTH DAILY active Not Available Not Available Not Available trimethoprim 100 mg tablet TAKE 1 TABLET BY MOUTH EVERY DAY 90 DAYS active Not Available Not Available Not Available ciprofloxaci n 500 mg tablet TAKE 1 TABLET BY MOUTH TWICE DAILY FOR 5 DAYS active Not Available Not Available No t Available acetaminophe n 500 mg tablet TAKE 1 TABLET BY MOUTH EVERY 8 HOURS NEEDED FOR PAIN active Not Available Not Available No t Available triamcinolon e acetonide 0.1 % topical cream APPLY TO THE AFFECTED AREA(S) SPARINGLY TWICE DAILY NEEDED FOR PAIN AND SWELLING. active Not Available Not Available No t Available ketorolac 30 mg/mL (1 mL) injection solution 15mg IM x1 now 2023 active Not Available Not Available Not Avai lable acetaminophe n ER 650 mg tablet,exten ded release TAKE 1 TABLET BY MOUTH TWICE DAILY IN THE MORNING AND AT BEDTIME NEEDED FOR MILD PAIN. DO NOT BREAK, CRUSH, DISSOLVE OR CHEW active Not Available Not Available No t Available ketorolac 10 mg tablet TAKE 1 TABLET BY MOUTH EVERY 6 HOURS NEEDED FOR UP TO 5 DAYS total USE (3 MORE DAYS AFTER INTRAMUSCUL FAVIAN INJECTION). DO NOT EXCEED 4 TABLETS (40 MG) IN 24 HOURS active Not Available Not Available No t Available pantoprazole 20 mg tablet,delay ed release TAKE 1 TABLET BY MOUTH EVERY DAY FOR 7 DAYS active Not Available Not Available No t Available lorazepam 0.5 mg tablet TAKE 1 TABLET BY MOUTH ONCE, 30 MINUTES BEFORE MRI active Not Available Not Available N ot Available methocarbamo l 750 mg tablet TAKE 1 TABLET BY MOUTH THREE TIMES DAILY IN THE MORNING, AT NOON, AND AT BEDTIME NEEDED FOR MUSCLE SPASMS active Not Available Not Available No t Available amitriptylin e 10 mg tablet TAKE 1 TABLET BY MOUTH ONCE DAILY AT BEDTIME active Not Available Not Available No t Available baclofen 10 mg tablet TAKE 1 TABLET BY MOUTH THREE TIMES DAILY IN THE MORNING, AT NOON, AND AT BEDTIME NEEDED FOR MUSCLE SPASMS active Not Available Not Available No t Available cephalexin 500 mg capsule TAKE 1 CAPSULE BY MOUTH TWICE DAILY FOR 7 DAYS active Not Available Not Available No t Available triamcinolon e acetonide 0.1 % topical ointment APPLY TOPICALLY TWICE DAILY IN THE MORNING AND AT BEDTIME NEEDED RASH active Not Available Not Available No t Available prednisone 50 mg tablet TAKE 1 TABLET BY MOUTH EVERY MORNING FOR 5 DAYS active Not Available Not Available No t Available triamcinolon e acetonide 55 mcg nasal spray aerosol USE 2 SPRAYS IN EACH NOSTRIL DAILY IN THE MORNING active Not Available Not Available Not Available losartan 25 mg tablet TAKE 1/2 TABLET BY MOUTH ONCE DAILY IN THE MORNING active Not Available Not Available Not Available sertraline 25 mg tablet TAKE 1/2 TABLET BY MOUTH ONCE DAILY IN THE MORNING active Not Available Not Available Not Available hydrocortiso ne 2.5 % topical cream APPLY TOPICALLY TO AFFECTED AREA(S) TWICE DAILY NEEDED RASH OR FOR ITCHING active Not Available Not Available No t Available hydrochlorot hiazide 25 mg tablet TAKE 1 TABLET BY MOUTH EVERY DAY active Not Available Not Available No t Available mupirocin 2 % topical ointment APPLY TOPICALLY THREE TIMES DAILY FOR 10 DAYS active Not Available Not Available No t Available ergocalcifer ol (vitamin D2) 1,250 mcg (50,000 unit) capsule TAKE 1 CAPSULE BY MOUTH EVERY 14 DAYS active Not Available Not Available No t Available estradiol 0.01% (0.1 mg/gram) vaginal cream APPLY A PEA SIZED AMOUNT TO THE URETHRA 3 TIMES A WEEK DIRECTED FOR 30 DAYS active Not Available Not Available Not Available levofloxacin 750 mg tablet TAKE 1 TABLET BY MOUTH DAILY FOR SIX DAYS active Not Available Not Available No t Available methylpredni solone 4 mg tablets in a dose pack TAKE DIRECTED ON PACKAGE active Not Available Not Available No t Available ketorolac 60 mg/2 mL intramuscula r solution 1 ml IM 2023 active Not Available Not Available Not Avai lable clobetasol 0.05 % scalp solution APPLY TO THE AFFECTED AREA(S) OF SCALP TWICE DAILY IN THE MORNING AND IN THE EVENING. active Not Available Not Available No t Available fluticasone propionate 50 mcg/actuatio n nasal spray,suspen rafael INSTILL 1 SPRAY IN EACH NOSTRIL ONCE DAILY SHAKE GENTLY active Not Available Not Available No t Available metformin ER 500 mg tablet,exten ded release 24 hr TAKE 1 TABLET BY MOUTH EVERY DAY WITH DINNER active Not Available Not Available No t Available clotrimazole 1 % topical cream APPLY TO THE AFFECTED AREA(S) TWICE DAILY FOR 2-4 WEEKS. active Not Available Not Available No t Available sertraline 50 mg tablet TAKE 1 TABLET BY MOUTH EVERY DAY FOR DEPRESSION AND FOR ANXIETY active Not Available Not Available No t Available lisinopril 2.5 mg tablet TAKE 1 TABLET BY MOUTH DAILY active Not Available Not Available Not Available doxycycline hyclate 100 mg tablet TAKE 1 TABLET BY MOUTH TWICE DAILY FOR 7 DAYS. TAKE WITH A FULL GLASS OF WATER. Do not lie down for 30 minutes after taking active Not Available Not Available No t Available loratadine 10 mg tablet TAKE 1 TABLET BY MOUTH EVERY MORNING active Not Available Not Available No t Available naproxen 500 mg tablet TAKE 1 TABLET BY MOUTH TWICE DAILY IN THE MORNING AND AT BEDTIME NEEDED FOR MILD PAIN active Not Available Not Available No t Available Artificial Tears (polyvinyl alcohol) 1.4 % eye drops PLACE 2 DROPS IN EACH EYE EVERY 6 HOURS NEEDED FOR DRY EYES active Not Available Not Available No t Available Ventolin HFA 90 mcg/actuatio n aerosol inhaler INHALE 2 PUFFS BY MOUTH EVERY 4 HOURS NEEDED FOR WHEEZING OR SHORTNESS OF BREATH active Not Available Not Available No t Available hydroxyzine pamoate 25 mg capsule TAKE 1 CAPSULE BY MOUTH EVERY 6 HOURS NEEDED FOR acute ANXIETY active Not Available Not Available No t Available escitalopram 10 mg tablet TAKE 1 TABLET BY MOUTH EVERY DAY active Not Available Not Available No t Available rosuvastatin 5 mg tablet TAKE 1 TABLET BY MOUTH EVERY DAY active Not Available Not Available No t Available escitalopram 5 mg tablet TAKE 1 TABLET BY MOUTH EVERY DAY active Not Available Not Available No t Available nitrofuranto in monohydrate/ macrocrystal s 100 mg capsule TAKE 1 CAPSULE BY MOUTH TWICE DAILY FOR 7 DAYS active Not Available Not Available No t Available Mucinex DM 30 mg-600 mg tablet,exten ded release 12 hr TAKE 1 TABLET BY MOUTH TWICE DAILY DIRECTED active Not Available Not Available No t Available darifenacin ER 7.5 mg tablet,exten ded release 24 hr TAKE 1 TABLET BY MOUTH ONCE DAILY active Not Available Not Available No t Available darifenacin ER 15 mg tablet,exten ded release 24 hr TAKE 1 TABLET BY MOUTH EVERY DAY active Not Available Not Available No t Available Flovent HFA 110 mcg/actuatio n aerosol inhaler INHALE 1 PUFF BY MOUTH TWICE DAILY. RINSE MOUTH AFTER USING. active Not Available Not Available No t Available diclofenac 1 % topical gel APPLY 2 GRAMS TO AFFECTED AREA(S) THREE TIMES DAILY active Not Available Not Available No t Available Eye Itch Relief 0.025 % (0.035 %) drops PLACE 1 DROP IN EACH EYE TWICE DAILY IN THE MORNING AND AT BEDTIME NEEDED FOR ITCHING active Not Available Not Available Not Available blood pressure test kit-large cuff USE TO CHECK BLOOD PRESSURE DAILY DIRECTED active Not Available Not Available No t Available ketorolac 30 mg/mL injection solution 15 mg IM 2023 active Not Available Not Available Not Avai lable Vitamin D3 50 mcg (2,000 unit) capsule TAKE 1 CAPSULE BY MOUTH EVERY DAY active Not Available Not Available No t Available Imani-Tussin 100 mg/5 mL oral liquid TAKE 10 ML BY MOUTH THREE TIMES DAILY IN THE MORNING, AT NOON, AND AT BEDTIME NEEDED FOR COUGH FOR UP TO 10 DAYS active Not Available Not Available No t Available Double Antibiotic (bacitrcn zn) 500 unit-10,000 unit/gram top ointment APPLY TO THE AFFECTED AREA(S) TWICE DAILY active Not Available Not Available Not Available Myrbetriq 25 mg tablet,exten ded release TAKE 1 TABLET BY MOUTH EVERY DAY active Not Available Not Available No t Available Myrbetriq 50 mg tablet,exten ded release TAKE 1 TABLET BY MOUTH TWICE DAILY active Not Available Not Available No t Available Jardiance 10 mg tablet TAKE 1 TABLET BY MOUTH EVERY MORNING active Not Available Not Available No t Available Asmanex HFA 100 mcg/actuatio n aerosol inhaler INHALE 2 PUFFS TWICE DAILY DIRECTED active Not Available Not Available No t Available Arnuity Ellipta 100 mcg/actuatio n powder for inhalation INHALE 1 PUFF BY MOUTH EVERY DAY. RINSE MOUTH AFTER USING. DO NOT SWALLOW active Not Available Not Available Not Available Imani-Dryl 25 mg tablet TAKE 1 TABLET BY MOUTH EVERY 6 HOURS NEEDED FOR ITCHING active Not Available Not Available No t Available selenium sulfide 2.5 % lotion APPLY TO THE AFFECTED AREA(S) 2-3 TIMES PER WEEK FOR 2-4 WEEKS, LATHER, LEAVE FOR 5 MINUTES THEN RINSE. active Not Available Not Available Not Available Vitals Date Recorded Oxygen saturation Oxygen saturation in Arterial blood by Pulse oximetry Respiratory rate Heart rate Body weight Body temperature Systolic blood pressure Diastolic blood pressure Provider Name and Address Organization Details Last Updated DateTime 4 97 % 97 % 14 /min 84 /min 47299.6 88 g 98.1 [degF] 140 mm[Hg] 88 mm[Hg] Not Available [facility] 4 10:32:16 Date Recorded Oxygen saturation Oxygen saturation in Arterial blood by Pulse oximetry Heart rate Body temperature Respiratory rate Body height Body weight Systolic blood pressure Diastolic blood pressure Provider Name and Address Organization Details Last Updated DateTime 4 96 % 96 % 77 /min 98.1 [degF] 16 /min 175.26 cm 60961.6 88 g 154 mm[Hg] 76 mm[Hg] Not Available [facility] 4 19:37:21 Date Recorded Respiratory rate Heart rate Oxygen saturation Oxygen saturation in Arterial blood by Pulse oximetry Body temperature Body height Body weight Systolic blood pressure Diastolic blood pressure Provider Name and Address Organization Details Last Updated DateTime 4 16 /min 62 /min 98 % 98 % 98 [degF] 175.26 cm 17196.9 12 g 120 mm[Hg] 70 mm[Hg] Not Available [facility] 21:39:29 Date Recorded Respiratory rate Oxygen saturation Oxygen saturation in Arterial blood by Pulse oximetry Body temperature Heart rate Systolic blood pressure Diastolic blood pressure Provider Name and Address Organization Details Last Updated DateTime 4 16 /min 98 % 98 % 98.5 [degF] 85 /min 146 mm[Hg] 60 mm[Hg] Not Available [facility] 14:31:12 Date Recorded Body height Body mass index (BMI) Body weight Provider Name and Address Organization Details Last Updated DateTime 04/27/2024 175.26 cm 31.2 kg/m2 82372.99 g Ofelia Haines MD [address] [place] [address],[address] [place], [place], [address] [place] [address] - [facility] 04/27/2024 15:31:30 Date Recorded Respiratory rate Oxygen saturation Oxygen saturation in Arterial blood by Pulse oximetry Heart rate Body temperature Systolic blood pressure Diastolic blood pressure Provider Name and Address Organization Details Last Updated DateTime 4 16 /min 96 % 96 % 76 /min 99.3 [degF] 146 mm[Hg] 80 mm[Hg] Not Available [facility] 16:01:29 Social History None recorded. Functional Status None recorded. Mental Status None recorded. Family History Nothing Reported. Medical History No medical history recorded. Gynecological HistoryNo gynecological history recorded. Obstetrics History GPAL:G 0 P 0 0 0 0 Past Encounters Encounter ID Performer Location Encounter Start Date Encounter Closed Date Diagnosis/Indication Diagnosis SNOMED-CT Code Diagnosis ICD10 Code Diagnosis Note [id number] Trevor Peña MD [facility] [address] [place] [address] [id number] 09/03/2021 16:09:20 03/02/2022 14:21:26 Lumbar radiculopathy 101885633 M54.16 [id number] Trevor Peña MD [facility] - [facility] [address] [place] [address] [id number] 10/08/2021 13:51:19 04/02/2022 16:45:16 Lumbar radiculopathy 451312763 M54.16 [id number] Jud Long MD [facility] [address] [place] [address] [id number] 04/05/2022 11:27:10 04/05/2022 13:05:02 [id number] Stephon Penny MD [facility] [address] [place] [address] [id number] 04/09/2022 11:27:49 04/10/2022 14:45:11 Lumbar radiculopathy 862310772 M54.16 Requesting prior treatment of oral prednisone and IM Toradol which she has tolerated in the past. No kidney impairment . [id number] Koki Anderson MD [facility] [address] [place] [address] [id number] 05/11/2022 15:44:17 05/14/2022 12:45:16 Acute urinary tract infection 866479716 N39.0 [id number] Thad Wetzel MD [facility] [address] [place] [address] [phone] 07/24/2022 20:29:47 07/26/2022 10:20:29 Pruritus of scalp 763090309 L29.8 [id number] Saroj Felipe MD [facility] - [facility] [address] [place] [address] [id number] 08/13/2022 11:10:54 08/15/2022 10:22:27 Thoracic back pain 982246007 M54.6 This 62-year-ol d female has had bilateral pain in her upper back for three weeks with no history of trauma. It appears to be muscle pain. She has been treated several times with Toradol with variable relief. I ordered Toradol 30 mg IM. She will continue taking Motrin and Tylenol as needed for pain. She will follow-up with her PCP. The patient agreed with this plan. [id number] Laverne Arias MD [facility] [address] [place] [address] [id number] 0 10/21/2022 17:14:44 10/23/2022 10:13:58 Chronic low back pain [id number] M54.50 [id number] Stephon Penny MD [facility] [address] [place] [address] [id number] 12/14/2022 19:18:10 12/15/2022 22:52:43 Lumbar radiculopathy 362849100 M54.16 Requesting prior treatment of oral prednisone and IM Toradol which she has tolerated in the past. No kidney impairment . No red flag signs. Reviewed s/s of when to go to ED [id number] [facility] [address] [place] [address] [id number] 0 12/18/2022 18:37:25 12/20/2022 15:02:03 Low back pain [id number] M54.50 This 62-year-ol d female has recently had lower back pain. She was seen several days ago and given Toradol and prednisone . She was prescribed Baclofen and Tylenol by her PDP but they were not effective. I ordered Toradol 30 mg IM and advised her to follow-up with her PCP. The patient agreed with this plan. [id number] Ofelia Haines MD [facility] [address] [place] [address] [id number] 01/31/2023 10:53:25 01/31/2023 14:39:59 Acute low back pain [id number] M54.50 Patient is requesting prednisone after the ketorolac as this helps reduce her symptoms./ She has had this in the past. She denies history of peptic ulcer disease, black or bloody stools, any CKD. I advised close follow-up with PCP and reviewed red flags-she verbalizes understand ing due to the history of hypertensi on I do not want to keep her on p.o. NSAIDs as this could interfere with her antihypert ensives [id number] Elisa Aguilar MD [facility] [address] [place] [address] [id number] 02/14/2023 16:42:48 02/15/2023 10:53:12 Urinary symptoms [id number] R39.9 Evaluation in the field was performed by my service order taker colleague, as noted above, I provided real-time direction and supervisio n for this visit. 62yo F hx prior UTI/pyelo (no cx data to guide abx) who p/w 2 days UTI sx w/o fever or flank pain to suggest pyelonephr itis. UA grossly positive. VS reassuring and no CVA TTP. Plan for empiric tx Macrobid and send UCx, tailor abx prn. We discussed the diagnostic uncertaint y of home visits and the risk associated with this. In this case, the patient and I felt this to be an acceptable and reasonable amount of risk given the benefit of avoiding an ED visit. We discussed the need to seek care urgently/e mergently in the setting of any new or worsening serious symptoms, shortness of breath, cough, chest pain, fever. [id number] Ofelia Haines MD Main - [address] [phone] 07/15/2023 11:35:21 07/15/2023 17:48:03 Pain in limb [id number] M79.609 Right greater than left upper arm/ EKG done to rule out arm pain as atypical myocardial ischemia in the diabetic. Have no old EKGs to compare. Patient advised cannot totally rule out cardiac disease with 1 EKG needs close follow-up with PCP tomorrow-l kin to need further testing. To have low threshold for presenting to the ER for worsening symptoms. She verbalized understand ing to the medic this could be radiculopa thy or neuropathy as well, given the hyperglyce osmin/prior history of lumbar disease..P atient apparently eating a lot of bananas, fruits significan t amount of bread. Medic advised to decrease carbs in diet at my request Patient has had ketorolac for her back with good relief. She has had no NSAIDs today, on daily anticoagul ation, denies any history of GI bleed, no notation of CKD in her old record; patient also denies history of CKD. [id number] Elisa Aguilar MD Main - [address] [phone] 07/29/2023 10:18:04 07/29/2023 12:29:45 Sacral back pain [id number] M54.50 Evaluation in the field was performed by my service order taker colleague, as noted above, I provided real-time direction and supervisio n for this visit. 63yo F p/w atraumatic nonradiati ng low back/sacra l pain, non-radiat ing. Seen by [facility] for this 11/2022 and 01/2023, was scheduled for MRI w/ PCP but did not attend. No red flag sx including no loss of bowel/blad huy control, no fevers. She is requesting toradol and prednisone .I reviewed w/ her that I would not recommend steroids for this LBP pain of likely MSK etiology given evidence of no benefit is non-radicu lar low back pain, need for further work up w/ PCP.I recommende d toradol 15 mg IM d/t evidence of equal pain control compared to 30 mg but lower risk of kidney damage and pt declined and is adamant that she will only accept 30 mg IM. After full discussion of risk/benef its provided 30 mg IM toradol. Red flags reviewed, encouraged PCP f/up for further work up and roasterman pain control plan. We discussed the diagnostic uncertaint y of home visits and the risk associated with this. In this case, the patient and I felt this to be an acceptable and reasonable amount of risk given the benefit of avoiding an ED visit. We discussed the need to seek care urgently/e mergently in the setting of any new or worsening serious symptoms, shortness of breath, cough, chest pain, fever. [id number] Laverne Arias MD Main - [facility] [address] [place] [phone] 07/30/2023 19:37:16 08/05/2023 09:51:12 Acute low back pain [id number] M54.50 [id number] [facility] [address] [place] [phone] 04/26/2024 21:32:40 04/27/2024 21:51:24 Low back pain [id number] M54.50 [id number] Ofelia Haines MD Main - [facility] [address] [place] [phone] 04/27/2024 14:31:09 04/27/2024 22:00:35 Low back pain [id number] M54.50 Patient has no radiculopa thy or loss of bowel or bladder control, I can find no recent labs on her. She states she had labs at [facility] 6 weeks ago and was told they were normal, but does not have access to the labs nor do I.Discusse d risk versus benefits of ketorolac, patient reports that she has no history of CKD, GI bleeding, is not anticoagul ated reportedly . Patient is a diabetic on metformin and pioglitazo ne but does not monitor her own blood sugar, she is requesting steroids for pain in addition to more ketorolac which helped yesterday. Advised of the need to check labs today -done and no significan t acute abnormalit y normal renal function, H&H good, and advised should not have multiple repeat doses of ketorolac due to the risks of MADELAINE and GI bleeding but will give another 15 mg today. Since her blood sugar is only 107 will send a short prescripti on of prednisone 40 mg daily for 5 days to take with food, to her pharmacy. Advised she will have a bump in her blood sugar temporaril y with the steroids 2 to continue her regular medication s. Pharmacy and allergies verified. Advised ice / wrapped in a towel alternatin g w/ gentle heat q 3-4H w/a to affected area/to avoid uncomforta ble movement No NSAIDs such as Aleve while on the steroids. Advised to take Tylenol 325 mg which she has at home 2 pills 3 times a day to help with better pain control and close follow-up with her PCP [id number] ALIZA FAUST MD Main - [facility] [address] [place] [phone] 06/07/2024 16:00:32 06/07/2024 21:49:28 Bilateral pain in upper arms [id number] M79.621 Evaluation in the field was performed by my service order taker colleague, as noted above, I provided real-time direction and supervisio n for this visit. The evaluation revealed a 64-year-ol d female with a history of chronic pain (followed by orthopedic s for back and knee pain), type 2 diabetes mellitus (reported as well-contr olled, with glucose of 107 on her 04/27 visit with us), no known history of gastrointe stinal bleeding or kidney disease (creatinin e on 04/27 was normal at 0.6), and not on anticoagul ation. She presents with complaints of bilateral upper arm pain that has been ongoing for some time. She was seen by her PCP on 05/12 and was prescribed naproxen (per the patient), but she stopped taking it as it did not help. The patient is convinced her symptoms are inflammato ry in nature and states that steroids are the only treatment that provides relief (she received steroids for low back pain during her 04/27 visit). She denies neck pain, arm weakness, numbness, or tingling. She also denies fever, chills, chest pain, shortness of breath, nausea, vomiting, or rashes. Vital Signs: Stable. Exam: Nonfocal neurologic al exam. Normal gait. Normal circulatio n, sensation, and motor function in both arms. No signs of erythema, contusions , edema, or increased warmth. The patient has a full range of motion in her extremitie s with no reported pain.Bakari lewis: Reviewed. Impression :Bilateral upper arm pain Plan:-Keto rolac 30 mg IM x1 was administer ed. The patient was advised to avoid NSAIDs for at least 1 week.-A prescripti on for Prednisone 20 mg daily for 5 days was sent to her pharmacy (the first dose was administer ed by the service order taker) .-A prescripti on for Pantoprazo le 20 mg daily for 7 days to prevent gastritis while taking Prednisone was sent to her pharmacy.- The short- and long-term side effects of Prednisone , including elevated blood glucose, steroid-in duced diabetes with long-term use, and brittle bones (osteoporo sis), were discussed with the patient.-T he patient was advised to discuss a possible rheumatolo gy referral with her PCP.-Red flag symptoms were discussed with the patient. Primary care, consider__ _ Dispositio n: We discussed the diagnostic uncertaint y of home visits and the risk associated with this. In this case, the patient and I felt this to be an acceptable and reasonable amount of risk given the benefit of avoiding an ED visit. We discussed the need to seek care urgently/e mergently in the setting of any new or worsening serious symptoms, particular ly fever, chills, CP, SOB, worsening arm pain weakness on the arm , tingling, numbness, vomiting blood or coffee grown, blood in the stool or black stools or any other concerns. Health Concerns Section Related Observation LastModified by Organization Detai ls LastModified Time None Recorded Concern Status LastModified by Organization Details LastModified Time None Recorded Advance Directives Directive None Recorded Payers Encounter Date Sequence Insurance Name Policy Number Policy Soliz Covered Member ID Soliz Member ID Guarantor Name 07/29/2023 1 [employer] [employer] - DOS ON OR AFTER 2022 - DUAL ELIGIBLE - PRISON OPTIONS AND ONE CARE (MEDICARE REPLACEMENT/ADV ANTAGE - HMO) Katelyn Parra [id number] Katelyn Parar 07/30/2023 1 [facility] [employer] - DOS ON OR AFTER 2022 - DUAL ELIGIBLE - PRISON OPTIONS AND ONE CARE (MEDICARE REPLACEMENT/ADV ANTAGE - HMO) Katelyn Parra [id number] Katelyn Parra 04/26/2024 1 [employer] [employer] - DOS ON OR AFTER 2022 - DUAL ELIGIBLE - PRISON OPTIONS AND ONE CARE (MEDICARE REPLACEMENT/ADV ANTAGE - HMO) Katelyn Parra [id number] Katelyn Parra 04/27/2024 1 [facility] ON OR AFTER 2022 - DUAL ELIGIBLE - PRISON OPTIONS AND ONE CARE (MEDICARE REPLACEMENT/ADV ANTAGE - HMO) Katelyn Parra [id number] Katelyn Parra 06/07/2024 1 [employer] [employer] - DOS ON OR AFTER 2022 - DUAL ELIGIBLE - PRISON OPTIONS AND ONE CARE (MEDICARE REPLACEMENT/ADV ANTAGE - HMO) Katelyn Parra [id number] Katelyn Parra Notes Date Note Type Note Provider Name and Address Organization Details Recorded Time 07/29/2023 text/html CRC Nurse Triage Notes (Tevin Swartz): Chief Complaints: Pain PMH: Diabetes, Hypertension Allergies: Penicillin, Bactrim, Latex Comments: Ip Architect verified the member's name//address and phone number - Education provided on the response time and the member was advised to monitor reported s/s and seek emergency treatment if needed. Member reports having lower back pain and right arm pain - Hx of same - Stated 2 days ago - Denies injury and trauma - Denies fever - Member is looking for pain management - Member agrees to a visit on 07/29 - Capacity due to road conditions .................. .................. .................. .................. .................. .................. .................. ............... [employer] Note From René Cardona: Pt's pain started 3 days ago, low right back, near the hip. Pt reports 10/10 pain and denies trauma. No redness, swelling, or warmth. Pt reports it feels inflamed and the area feels warm. Pt denies LOVE, CP, SOB, N/V/D. Pt reports normal appetite and eating well. Normal BM, urinating. No blood in urine. Pt denies any incontinence. Pt is able to mayra legs as normal, pain does not radiate down the leg, however extending the back causes pain, and the area is tender to the touch. This has happened in the past, summer of 2022. Pt reports getting prednisone and Toradol last time and requestion it this time. Pt reports only taking metformin. Pt is not on blood thinners. No hx of stroke, DVT. Allergies Bactrim, PCN, Latex. Rx 15mg IM Toradol. Pt requested 30mg instead. Orders obtained by , who advised telling pt risks of high dose NSAIDs kidney damage, and stomach problems, among others. 30mg IM Toradol given, right deltoid. Discussed red flags with pt. Advised pt to seem care from PCP and to reschedule MRI. .................. .................. .................. .................. .................. .................. .................. ............... Disposition: Fulfilled Elisa Aguilar MD [address] [facility],[address], [place], [phone], [email or web address] 07/29/2023 11:19:44 07/30/2023 text/html CRC Nurse Triage Notes (Marcia Acosta): Chief Complaints: Pain PMH: Diabetes, Hypertension Allergies: Penicillin, Bactrim, Latex Pain Assessment: Level 10 out of 10 Comments: Member had visit on 07/29 for non-radiating low back pain. Given Toradol during visit with some relief. History of similar pain in the past. Reports 10/10 pain. Patient reports she was prescribed Prednisone in the past. Requesting visit on 07/30 for pain management. Denies numbness/tingling or weakness of the LE's Encouraged to f/u with PCP tomorrow to make a f/u appt. Also advised ED for worsening symptoms. Member verbalizes understanding. .................. .................. .................. .................. .................. .................. .................. ............... [employer] Note From Ck Garcia: Pt reports several days of atraumatic lower right back pain. Pt sts she has had this in the past and is usually treated with prednisone which works well. Pt is alert, NAD. VSS. Afebrile. Non focal neuro exam. Normal gait. Lungs CTA. Benign ABD exam. No LE edema. [facility] contacted and pt treated with ketorolac 15 mg IM, right deltoid. Prednisone sent to pharmacy. Pt encouraged to f/u with PCP later this week. [employer] Allergies: Penicillin, Bactrim, Latex .................. .................. .................. .................. .................. .................. .................. ............... Disposition: Fulfilled Laverne Arias MD [address] [facility],[address], [place], [phone], [email or web address] 08/04/2023 19:01:06 04/26/2024 text/html HPI: Member calling in with c/o pain in right flank area. States its 04/09. Member states pain has been ongoing for a few weeks. She went the the ER Saturday and is still waiting to hear back on test results. Member has no other symptoms other than the pain in her right side that also goes down her leg and hurts her when she walks. Member asking to be seen for help with pain control. .................. .................. .................. .................. .................. .................. .................. ............... CRC Nurse Triage Notes (Tevin Swartz): Chief Complaints: Pain PMH: Diabetes, Hypertension Allergies: Penicillin, Bactrim, Latex Comments: Reviewed HPI Laverne Arias MD [address], [place], [phone], [place] [email or web address] 04/26/2024 21:50:02 04/27/2024 text/html CRC Nurse Triage Notes (Ariane Chaidez): Reason For Request: Patient has Stomach Pain, on her side. Chief Complaints: Abdominal Pain PMH: Diabetes, Hypertension Allergies: Penicillin, Bactrim, Latex Comments: Ip Architect verified the member's name//address and phone number. Member is a 68 yr old female/ A/o3 PMH> DM / HTN Allergies > PCN/ Bactrim/ LatexPt calling for pain on right flank area. [facility] , she went to [facility] and they did an US and she is waiting for the results. She denies any symptoms. She is not on any blood thinners at this time. She denies any CKD . Education provided on the response time and the member was advised to monitor reported s/s and seek emergency treatment if needed [employer] Organization Information for Danial Vincentwinter Legal Name: [facility] [employer] [facility].? ? Address: [address] [place] [address], Apprenticeship Training Representative: Meet Stacy MD CLIA No.: [id number] [employer] POC Test Results from Danial Vincent LizzieTAT [employer] (14:43:02) Na: 142 mEq/L K: 3.6 mEq/L Cl: 105 mEq/L iCa: 1.26 mmol/L TCO2: 27 mmol/L Glu: 107 mg/dL BUN: 17 mg/dL Crea: 0.6 mg/dL Hct: 37 % Hb: 12.6 g/dL A .................. .................. .................. .................. .................. .................. .................. ............... 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 Appropriate equipment brought to patient side. Patient reports right flank pain just above the hip x2 weeks, reports ultrasound performed but has not received the results yet. Patient reports she was seen and evaluated by [place] day prior which she received Toradol with improvement in pain relief. Patient reports no pain relief with any ibuprofen or Tylenol. No recent trauma or infections/fevers reported.Patient found inside her home seated on chair, alert and oriented x4, patent airway, breathing non labored speaking in complete sentences, skin WPD in no immediate distress. +/= Chest rise. -SOB, -CP, -NVD, -Trauma, -Fever. GCS 15. CMS x4 intact. bladder and bowel function normal. Abdomen non tender/distended. [facility] consulted and reported provided. Blood draws performed, 21g butterfly in right AC, BMP results listed above from [employer]. [facility] ordered 15mg Toradol IM which were administered in pt right deltoid without incident. [facility] instructed patient to continue Tylenol 650mg for pain relief and follow up with PCP. Prescription called into preferred pharmacy. Red flags discussed. .................. .................. .................. .................. .................. .................. .................. ............... Disposition: Fulfilled SEGMD:Seen approx 2 weeks at [facility]- no results from abd/flank US yet.Patient received ketorolac 15 mg from our service yesterday with some relief. Is not anticoagulated, denies CKD or history of GI bleeding. Last received ketorolac prior, from our service, on 07/30/2023. Have no recent labs. She denies fever, chills, abdominal pain, nausea, vomiting, diarrhea, UTI symptoms or radicular symptoms. She further denies any loss or changes in bowel or bladder control the pain is sharp and nonradiating worsened by prolonged sitting or ambulation. She was taking Aleve and Tylenol but got no relief after several doses and has not had any in several days. Ofelia Haines MD [address], [place], [phone], [facility] - [employer] [facility] 04/27/2024 15:35:44 06/07/2024 text/html HPI: jamila with bilateral arm pain, was seen by pcp on May 12 where she was prescribed naproxen/ibuprofen , mbr states she stopped taking them x1wk ago due to not helping. jamila denies any injury was seen by [facility] in the past for same complaints where she was prescribed prednisone. requesting [facility] for possible Toradol injection and PO prednisone. .................. .................. .................. .................. .................. .................. .................. ............... CRC Nurse Triage Notes (Josiane Duran): Chief Complaints: Joint pain/swelling PMH: Hypertension Comments: CRC RN does not need additional information to process visit -Valerie LEAL .................. .................. .................. .................. .................. .................. .................. ............... [employer] Note From Ck Garcia: This 64-year-old female with a history including but not limited to HTN, DM type II requested a visit today to address nontraumatic pain in both upper arms. Patient states she believes this is ? an inflammatory response? and is requesting 30 mg of IM Toradol and prednisone. Patient states she is had pain like this in the past and that is her usual treatment. Patient states her blood glucose levels have been improved and are within normal limits for her.Patient presents awake and alert, in no acute distress. Her vital signs are reasonably stable and she is afebrile. Nonfocal neurological exam. Normal gait. Normal CSM in both arms. No signs of the erythema, contusions, edema or increased warmth. Patient has full range of motion in her extremities with no pain reported.I treated her with Toradol 30 mg IM, left deltoid and prednisone 20 mg. I instructed her to follow up with her primary care office tomorrow morning to request additional lab work confirming that this is inflammatory in nature and/or request referral to a sealer aircraft. The patient was given the opportunity to ask questions and is agreeable to this plan. .................. .................. .................. .................. .................. .................. .................. ............... [facility] Consulted: Aliza Faust .................. .................. .................. .................. .................. .................. .................. ............... Disposition: Harshil FAUST MD [address] [place] [address],[address], [place], [phone], [facility] [employer] [facility] 06/07/2024 16:47:15 OBGyn Episode No OBEpisode recorded.
--- OUTSIDE RECORDS SUMMARY | 2024-07-16 12:29 | XMS_ITS | Continuity of Care Document ---
Author Organization [employer] Address [address] [place] [address] Care Team Providers Care Flight Radio Officer Name Role Phone [facility] Referring Provider [facility] OTHER Assessment No assessment recorded. Plan of Treatment Reminders Order Date Submit Date Provider Last Modified By Organization Details Last Modified Time Details Appointments None recorded. Lab None recorded. Referral None recorded. Procedures None recorded. Surgeries None recorded. Imaging None recorded. Medication Orders ketorolac 60 mg/2 mL intramuscul ar solution 2023 [facility], [address] [place] [address], [id number], 16:08:04 prednisone [address] [facility], [address] [place] [address], [id number], 14:23:19 prednisone 20 mg tablet 2023 024 [facility], [address] [place] [address], [id number], 4 16:08:04 pantoprazol e 20 mg tablet,jenny yed release [address] [facility], [address] [place] [address], [id number], 4 14:23:19 Patient TargetsNo targets recorded. Patient InstructionsNo instructions recorded. Reason for Referral None Reported. Medical Equipment None Reported. Allergies Allergen ID Allergen Name Allergen Category Reaction Reaction Severity Criticality Documentation Date Start Date Code Code System Note Provider Name and Address Organization Details Recorded Time 2945 Bactrim medicatio n Not available Not available Not available 01/31/2023 30505 9 RxNorm Not Available [facility] - production 4 03:35:07 2947 Medicinal product containin g penicilli n and acting as antibacte rial agent (product) medicatio n Not available Not available Not available 01/31/2023 02240 05 SNOMED Not Available [facility] - production 4 03:35:07 4363 latex environme nt,medica tion Not available Not available Not available 07/15/2023 57738 91 [facility] Available [facility] 03:35:07 Medications Name Sig [...] total USE (3 MORE DAYS AFTER INTRAMUSCUL FVAIAN INJECTION). DO NOT EXCEED 4 TABLETS (40 [...] Not Available Not Available Vitals Date Recorded Respiratory rate Oxygen saturation Oxygen saturation in Arterial blood by Pulse oximetry Heart rate Body temperature Systolic blood pressure Diastolic blood pressure Provider Name and Address Organization Details Last Updated DateTime 4 16 /min 96 % 96 % 76 /min 99.3 [degF] 146 mm[Hg] 80 mm[Hg] Not Available [facility] - production 4 16:01:29 Social History None recorded. Functional Status None recorded. Mental Status None recorded. Family History Nothing Reported. Medical History No medical history recorded. Gynecological HistoryNo gynecological history recorded. Obstetrics History GPAL:G 0 P 0 0 0 0 Past Encounters Encounter ID Performer Location Encounter Start Date Encounter Closed Date Diagnosis/Indication Diagnosis SNOMED-CT Code Diagnosis ICD10 Code Diagnosis Note [id number] ALIZA FAUST MD [facility] [address] [place] [phone] 0 06/07/2024 16:00:32 06/07/2024 21:49:28 Bilateral pain in upper arms [id number] 5536355 M79.621 Evaluation in the field was performed by my agency service representative colleague, as noted above, I provided real-time [...] in her extremitie s with no reported pain.Aller gies: Reviewed. Impression :Bilateral upper arm pain Plan:-Keto rolac 30 mg IM x1 was administer ed. The patient was advised to avoid NSAIDs for at least 1 week.-A prescripti on for Prednisone 20 mg daily for 5 days was sent to her pharmacy (the first dose was administer ed by the agency service representative) .-A prescripti on for Pantoprazo le 20 [...] by Organization Details LastModified Time None Recorded Payers Encounter Date Sequence Insurance Name Policy Number Policy Soliz Covered Member ID Soliz Member ID Guarantor Name 06/07/2024 1 [facility] - DOS ON OR AFTER 2022 - DUAL ELIGIBLE - [facility] OPTIONS AND ONE CARE (MEDICARE REPLACEMENT/ADV ANTAGE - HMO) Katelyn Parra [id number] Katelyn Parra Notes Date Note Type Note Provider Name and Address Organization Details Recorded Time 06/07/2024 text/html HPI: jamila with bilateral arm pain, was seen by pcp on May 12 where she was prescribed naproxen/ibuprofen , mbr states she stopped taking them x1wk ago due to not helping. jamila denies any injury was seen by [facility] in the past for same complaints where she was prescribed prednisone. requesting [facility] for possible Toradol injection and PO prednisone. .................. .................. .................. .................. .................. .................. .................. ............... CRC Nurse Triage Notes (Josiane Duran): Chief Complaints: Joint pain/swelling PMH: Hypertension Comments: CRC RN does not need additional information to process visit -Valerie LEAL .................. .................. .................. .................. .................. .................. .................. ............... Set Up Mold Technician Note From Ck Garcia: This 64-year-old female [...] in nature and/or request referral to a verifying machine operator. The patient was given the opportunity to ask questions and is agreeable to this plan. .................. .................. .................. .................. .................. .................. .................. ............... [facility] Consulted: Aliza Faust .................. .................. .................. .................. .................. .................. .................. ............... Disposition: Fulfilled ALIZA FAUST MD [address] [facility],[address], [place], [address], [place], [email or web address] 06/07/2024 16:47:15 OBGyn Episode No OBEpisode recorded.
--- OUTSIDE RECORDS SUMMARY | 2024-07-16 12:29 | XMS_ITS | Continuity of Care Document ---
Author Organization [employer] [place] [employer] Address [address] [place] [address] Care Team Providers Care Hospice Nurse Practitioner Name Role Phone [facility] Referring Provider HIM [facility] OTHER Assessment Encounter Date Assessment Date Assessment LastModified by Organization Details LastModified Time 04/26/2024 04/26/2024 I have reviewed and agree with the assessment and plan as documented by the final inspector and tester. I provided real-time medical direction for this [...] to take tylenol regularly. Return precautions discussed. paysola Not available 04/26/2024 21:49:35 Plan of Treatment Reminders Order Date Submit Date Provider Last Modified By Organization Details Last Modified Time Details Appointments None recorded. Lab None recorded. Referral None recorded. Procedures None recorded. Surgeries None recorded. Imaging None recorded. Medication Orders ketorolac 30 mg/mL injection solution 2023 024 [facility], [address] [facility], [place], [place], [id number], 21:49:39 Patient TargetsNo targets recorded. Patient InstructionsNo instructions recorded. Reason for Referral None Reported. Medical Equipment None Reported. Allergies Allergen ID Allergen Name Allergen Category Reaction Reaction Severity Criticality Documentation Date Start Date Code Code System Note Provider Name and Address Organization Details Recorded Time 2946 Bactrim medicatio n Not available Not available Not available 01/31/2023 77171 9 RxNorm Not Available [facility] - production 4 03:35:07 2947 Medicinal product containin g penicilli n and acting as antibacte rial agent (product) medicatio n Not available Not available Not available 01/31/2023 68850 05 SNOMED Not Available [facility] - production 4 03:35:07 4363 latex environme nt,medica tion Not available Not available Not available 07/15/2023 77905 91 RxNorm Not Available [facility] - production [...] Not Available Vitals Date Recorded Respiratory rate Heart rate Oxygen saturation Oxygen saturation in Arterial blood by Pulse oximetry Body temperature Body height Body weight Systolic blood pressure Diastolic blood pressure Provider Name and Address Organization Details Last Updated DateTime 16 /min 62 /min 98 % 98 % 98 [degF] 175.26 cm 35383.9 12 g 120 mm[Hg] 70 mm[Hg] Not Available [facility] - production 21:39:29 Social History None recorded. Functional Status None recorded. Mental Status None recorded. Family History Nothing Reported. Medical History No medical history recorded. Gynecological HistoryNo gynecological history recorded. Obstetrics History GPAL:G 0 P 0 0 0 0 Past Encounters Encounter ID Performer Location Encounter Start Date Encounter Closed Date Diagnosis/Indication Diagnosis SNOMED-CT Code Diagnosis ICD10 Code Diagnosis Note [id number] Laverne Arias MD [facility] - [facility] [address] [place] [phone] 04/26/2024 21:32:40 04/27/2024 21:51:24 Low back pain [id number] M54.50 Health Concerns Section Related Observation LastModified by Organization Detai ls LastModified Time None Recorded Concern Status LastModified by Organization Details LastModified Time None Recorded Payers Encounter Date Sequence Insurance Name Policy Number Policy Soliz Covered Member ID Soliz Member ID Guarantor Name 04/26/2024 1 [facility] - DOS ON OR AFTER 2022 - DUAL ELIGIBLE - [facility] OPTIONS AND ONE CARE (MEDICARE REPLACEMENT/ADV ANTAGE - HMO) Katelyn Parra [id number] Katelyn Parra Notes Date Note Type Note Provider Name and Address Organization Details Recorded Time 04/26/2024 text/html HPI: Member calling in with [...] Comments: Reviewed HPI Laverne Arias MD [address] [facility],[address], [place], [address], [employer] 04/26/2024 21:50:02 OBGyn Episode No OBEpisode recorded.
--- OUTSIDE RECORDS SUMMARY | 2024-07-16 12:29 | XMS_ITS | Continuity of Care Document ---
Author Organization [employer] [facility] Address [address] [place] [address] Care Team Providers Care Cooler Supervisor Name Role Phone [facility] Referring Provider HIM [facility] OTHER Assessment Encounter Date Assessment Date Assessment LastModified by Organization Details LastModified Time 04/27/2024 04/27/2024 I provided real -time medical direction via phone for this encounter, and was available for additional phone based assistance as needed. I have reviewed and agree with the Assessment and Plan as documented by the Tie Mill Operator. We discussed the diagnostic uncertainty of home [...] verbalized understanding of instructions to the medic Not available 04/27/2024 15:22:54 Plan of Treatment Reminders Order Date Submit Date Provider Last Modified By Organization Details Last Modified Time Details Appointments None recorded. Lab BMP, serum or plasma 2023 024 [email or web address] 0 [facility], [address] [place], [phone], 15:35:24 Referral None recorded. Procedures None recorded. Surgeries None recorded. Imaging None recorded. Medication Orders ketorolac 30 mg/mL injection solution 2023 024 [email or web address] 0 [facility], [address] [place], [place], [id number], 4 15:35:01 prednisone 20 mg tablet 2023 024 [facility], [address] [place] [address], [id number], 4 16:49:17 Patient TargetsNo targets recorded. Patient InstructionsNo instructions recorded. Reason for Referral None Reported. Results Created Date Observation Date Name Description Value Unit Range Abnormal Flag Note LastModifiedBy Organization Detail LastModifiedTime Result Notes None recorded. Medical Equipment None Reported. Allergies Allergen ID Allergen Name Allergen Category Reaction Reaction Severity Criticality Documentation Date Start Date Code Code System Note Provider Name and Address Organization Details Recorded Time 2946 Bactrim medicatio n Not available Not available Not available 01/31/2023 76866 9 RxNorm Not Available [facility] - production 4 03:35:07 2947 Medicinal product containin g penicilli n and acting as antibacte rial agent (product) medicatio n Not available Not available Not available 01/31/2023 61001 05 SNOMED Not Available [facility] - production 4 03:35:07 4363 latex environme nt,medica tion Not available Not available Not available 07/15/2023 54856 91 RxNorm Not Available [facility] - production [...] /min 146 mm[Hg] 60 mm[Hg] Not Available [facility] - production 4 14:31:12 Date Recorded Body height Body mass index (BMI) Body weight Provider Name and Address Organization Details Last Updated DateTime 04/27/2024 175.26 cm 31.2 kg/m2 09480.99 g Ofelia Haines MD [address] [facility],[address], [place], [address], [place] - [employer] 04/27/2024 15:31:30 Social History None recorded. Functional Status None recorded. Mental Status None recorded. Family History Nothing Reported. Medical History No medical history recorded. Gynecological HistoryNo gynecological history recorded. Obstetrics History GPAL:G 0 P 0 0 0 0 Past Encounters Encounter ID Performer Location Encounter Start Date Encounter Closed Date Diagnosis/Indication Diagnosis SNOMED-CT Code Diagnosis ICD10 Code Diagnosis Note [id number] Laverne Arias MD Main - [facility] [address] [place] [phone] 04/26/2024 21:32:40 04/27/2024 21:51:24 Low back pain [id number] M54.50 [id number] Ofelia Haines MD Main - [facility] [address] [place] [phone] 0 04/27/2024 14:31:09 04/27/2024 22:00:35 Low back pain 873307518 M54.50 Patient has no radiculopa thy or loss of bowel or bladder control, I can find no recent labs on her. She states she had labs at [facility] 6 weeks ago and was told [...] control and close follow-up with her PCP Health Concerns Section Related Observation LastModified by Organization Halie christian LastModified Time None Recorded Concern Status LastModified by Organization Details LastModified Time None Recorded Payers Encounter Date Sequence Insurance Name Policy Number Policy Soliz Covered Member ID Soliz Member ID Guarantor Name 04/27/[address] [facility] - DOS ON OR AFTER 2022 - DUAL ELIGIBLE - NURSING HOME OPTIONS AND ONE CARE (MEDICARE REPLACEMENT/ADV ANTAGE - HMO) Katelyn aPrra [id number] Katelyn Parra Notes Date Note Type Note Provider Name and Address Organization Details Recorded Time 04/27/2024 text/html CRC Nurse Triage Notes (Ariane Chaidez): Reason For Request: Patient has Stomach Pain, on her side. Chief Complaints: Abdominal Pain PMH: Diabetes, Hypertension Allergies: Penicillin, Bactrim, Latex Comments: [employer] Supervisor verified the member's name//address and phone number. Member is a 68 yr old female/ A/o3 PMH> DM / HTN Allergies > PCN/ Bactrim/ LatexPt calling for pain on right flank area. She was seen on 04/26 by [facility] and given toradol , she went to [facility] and they did an US and she is waiting for the results. She denies any symptoms. She is not on any blood thinners at this time. She denies any CKD . Education provided on the response time and the member was advised to monitor reported s/s and seek emergency treatment if needed Tie Mill Operator Organization Information for Danial Vincent Legal Name: [facility] ? Address: [address] [place] [address], Cyber Policy And Strategy Planner: Meet Stacy MD CLIA No.: [id number] Tie Mill Operator POC Test Results from Danial Vincent iSTAT Chem8+ (14:43:02) Na: 142 mEq/L K: 3.6 mEq/L Cl: 105 mEq/L iCa: 1.26 mmol/L TCO2: 27 mmol/L Glu: 107 mg/dL BUN: 17 mg/dL Crea: 0.6 mg/dL Hct: 37 % Hb: 12.6 g/dL A .................. .................. .................. .................. .................. .................. .................. ............... Tie Mill Operator Note From Danial Vincent: SC12 dispatched address listed above for report of female alliance party with flank pain. Appropriate equipment brought to patient side. Patient reports right flank pain just above the hip x2 weeks, reports ultrasound performed but has not received the results yet. Patient reports she was seen and evaluated by [facility] prior which she received Toradol with [...] and bowel function normal. Abdomen non tender/distended. [facility] consulted and reported provided. Blood draws performed, 21g butterfly in right AC, BMP results listed above from iSTAT. [facility] ordered 15mg Toradol IM which were administered in pt right deltoid without incident. [facility] instructed patient to continue Tylenol 650mg for pain relief and follow up with PCP. Prescription called into preferred pharmacy. Red flags discussed. .................. .................. .................. .................. .................. .................. .................. ............... Disposition: Fulfilled SEGMD:Seen approx 2 weeks at [facility]- no results from abd/flank US yet.Patient received [...] in several days. Ofelia Haines MD [address] [facility],[address], [place], [address], [employer] 04/27/2024 15:35:44 OBGyn Episode No OBEpisode recorded.
== END 2024-07-16 11:07 | disposition home or self-care (01) ==
PROVIDERS: PCP Family Medicine; Visit Provider Orthopaedic Surgery
DX: M17.0 Bilateral primary osteoarthritis of knee (principal)
CPT/HCPCS: 20610; 99213

== ENCOUNTER 2024-08-21 12:49 | Outpatient (REF) | payer OTHER, SELFPAY ==
--- NOTE | ~2024-08-21 | CT_ITS ---
CLINICAL HISTORY: severe worsening LBP CT lumbar spine without contrast Comparison: None Findings: No acute fracture or acute malalignment. Straightening of the normal lumbar lordosis with multilevel disc space narrowing and marginal osteophyte formation. This is most pronounced at L5-S1. There is severe central canal stenosis at L4-L5, reference axial images 94 through 100. There is also severe central canal stenosis at L5-S1. Impression: No acute fracture or acute malalignment. Severe central canal stenosis at L4-5 and L5-S1. This document has been electronically signed by: Colby Arguelles MD on 08/24/2024 10:09:25
--- OUTSIDE RECORDS SUMMARY | 2024-08-21 13:19 | XMS_ITS | Encounter Summary ---
Author Organization [employer] Address [address] [facility] [address] [place] [address] Care Team Providers Care Marine Electrician Name Role Phone Brigitte Kan DO Primary Care Provider [phone] Reason for Visit * Reason Onset Date Comments Durable Medical Equipment 11/22/2022 Encounter Details Date Type Department Care Team (Late st Contact Info) Description 11/22/2022 Telephone [facility] [address] [place] [address] Brigitte Kan DO [address] [place], [place] [phone] Durable Medical Equipment Social History Tobacco Use Types Packs/Day Years Used Date Smoking Tobacco: Never Smokeless Tobacco: Never Comments Unknown Sex and Gender Information Value Date Recorded Sex Assigned at Female 04/30/2022 10:14 AM EDT Legal Sex Female 10:14 AM EDT Gender Identity Female 04/30/2022 10:14 AM EDT Sexual Orientation Straight 04/30/2022 10 :14 AM EDT COVID-19 Exposure Response Date Recorded In the last 10 days, have yo u been in contact with someone who was confirmed or suspected to have Coronavirus/COVID-19? No / Unsure 10/25/2022 9:57 AM EDT documented as of this encounter Miscellaneous Notes * Telephone Encounter - Shital Pimentel - 11/22/2022 2:41 PM EDT Script for recliner generated for signature * Telephone Encounter - Rafaela Nice - 11/22/2022 2:15 PM EDT Tc from Steff with [facility] requesting a recliner for pt. Please sent script to Steff at [email or web address] If any questions please contact Steff at [phone] documented in this encounter Plan of Treatment Not on file documented as of this encounter Visit Diagnoses Not on filedocumented in this encounter Care Teams Marine Electrician Relationship Specialty Start Date End Date Brigitte Kan DO [address] [place] [phone] PCP - General Family Medicine 01/15/14 documented as of this encounter
--- OUTSIDE RECORDS SUMMARY | 2024-08-21 13:19 | XMS_ITS | Encounter Summary ---
Author Organization [employer] Address [address] [facility] [address] [place] [address] Care Team Providers Care Machine Assembler Name Role Phone Brigitte Kan DO Primary Care Provider + [phone] Reason for Visit * Reason Onset Date Comments Durable Medical Equipment 07/21/2024 DME Sc ript Diabetic Shoes Encounter Details Date Type Department Care Team (Late st Contact Info) Description 07/21/2024 Telephone [facility] [address] [place] [address] Brigitte Kan DO [address] [place], [place] [phone] Durable Medical Equipment (DME Script Diabetic Shoes) Social History Tobacco Use Types Packs/Day Years Used Date Smoking Tobacco: Never Passive Smoke Exposure: Never Smokeless Tobacco: Never Alcohol Use Standard Drinks/Week Comments Never 0 (1 standard drink = 0.6 oz pur e alcohol) Depression Answer Date Recorded Patient Health Questionnaire-9 Score 6 03/19/2023 Housing Stability Answer Date Recorded What is your housing situation today? I have romel martins 04/17/[address] you li ve. Do you have problems with any of the following? None of the above 04/17/2023 Food Insecurity Answer Date Recorded Within the past 12 months, y ou worried that your food would run out before you got money to buy more: Never True 04/17/2023 Within the past 12 months,th e food you bought just didn't last and you didn't have enough money to get more: Never True Transportation Answer Date Recorded In the past 12 months, has l ack of transportation kept you from medical appts, meetings, work or from getting things needed for daily living? No 04/17/2023 Utilities Answer Date Recorded In the past 12 months, has t he electric, gas, oil or water company threatened to shut off services in your home? No 04/17/2023 Depression Answer Date Recorded Patient Health Questionnaire-2 Score 2 03/19/2023 Comments Unknown Sex and Gender Information Value Date Recorded Sex Assigned at Female 04/30/2022 10:14 AM EDT Legal Sex Female 10:14 AM EDT Gender Identity Female 04/30/2022 10:14 AM EDT Sexual Orientation Straight 04/30/2022 10 :14 AM EDT documented as of this encounter Miscellaneous Notes * Telephone Encounter - Venus Moore MA - 08/10/2024 3:14 PM EST DME Script for Diabetic Shoes generated sign and faxed to [facility]. Patient notified. * Telephone Encounter - Brian Boles - 07/21/2024 1:33 PM EST Tc from pt stating that she ordered Diabetes shoes but she wasn't able to get them because there are no documents. Stating that the Pt has Diabetes. Contact pt at [phone] documented in this encounter Plan of Treatment Not on file documented as of this encounter Visit Diagnoses Not on filedocumented in this encounter Additional Health Concerns Assessment Noted Time PHQ-9 Depression Total Score: 6 03/19/20 23 12:17 PM EDT documented as of this encounter Care Teams Machine Assembler Relationship Specialty Start Date End Date Brigitte Kan DO [address] [place] [address] PCP - General Family Medicine 01/15/14 documented as of this encounter
--- OUTSIDE RECORDS SUMMARY | 2024-08-21 13:19 | XMS_ITS | Clinical Summary ---
Author Organization [employer] Address [address] [facility] 7t [place] [address] Care Team Providers Care Grain Drier Name Role Phone SuryBrigitte maldonado Primary Care Provider [phone] Allergies Active Allergy Reactions Criticality Noted Date Comments Cephalosporins 03/29/2021 Other reaction(s): rash, abdominal pain Latex Rash Low 01/16/2021 Other Reaction(s): Not available Oxycodone Rash Low 01/16/2021 Penicillin V Hives Penicillins Unknown 05/11/2024 Sulfa Antibiotics Hives Sulfamethoxazole Hives 08/20/2013 Sulfamethoxazole-Trimethoprim Unknown 2023 Trimethoprim Hives 08/20/2013 Medications clotrimazole (Lotrimin) 1 % creamIndications: Tinea cruris Apply topically 2 times daily. For 2-4 weeks 60 g 07/18/19 23 Active selenium sulfide (Selsun) 2.5 % shampooIndication s:Seborrheic dermatitis of scalp Apply topically/lat her to affected area 2-3 times a week for 2-4 weeks, leave for 5 minutes then rinse. 118 mL 07/18/19 23 Active clobetasol (Temovate) 0.05 % external solution APPLY TO THE AFFECTED AREA(S) OF SCALP TWICE DAILY IN THE MORNING AND IN THE EVENING. 07/25/19 23 Active triamcinolone (Kenalog) 0.1 % ointment Apply topically if needed in the morning and at bedtime for rash. 28 g 03/19/20 23 Active Eye Itch Relief 0.025 % ophthalmic solution APPLY 1 DROP IN EACH EYE TWICE DAILY IN THE MORNING AND AT BEDTIME NEEDED FOR ITCHING 10 mL 1 04/10/20 23 Active Multiple Vitamin (multivitamin) tablet Take 1 tablet by mouth in the morning. 90 tablet 3 09/19/19 24 Active cholecalciferol (Vitamin D-3) 50 MCG (2000 UT) capsule Take 1 capsule (50 mcg) by mouth Once per day. 30 capsule 11 01/06/20 24 Active rosuvastatin (Crestor) 5 MG tabletIndications :Other hyperlipidemia TAKE 1 TABLET BY MOUTH EVERY DAY 30 tablet 5 01/29/20 24 Active Diclofenac Sodium 1 % gel APPLY 2 GRAMS TO AFFECTED AREA(S) THREE TIMES DAILY 100 g 3 02/21/20 24 Active hydrocortisone 2.5 % creamIndications: Dermatitis APPLY TOPICALLY TO AFFECTED AREA(S) TWICE DAILY NEEDED RASH OR FOR ITCHING 30 g 2 03/11/20 24 Active losartan (Cozaar) 25 MG tablet TAKE 1/2 TABLET BY MOUTH ONCE DAILY IN THE MORNING 15 tablet 11 04/16/20 24 Active pioglitazone (Actos) 15 MG tablet TAKE 1 TABLET BY MOUTH EVERY DAY IN THE MORNING 30 tablet 11 04/16/20 24 Active fluticasone (Flonase Allergy Relief) 50 MCG/ACT nasal spray Administer 1 spray into each nostril Once per day. Shake gently. Before first use, prime pump. After use, clean tip and replace cap. 16 g 05/11/20 24 2024 Active diphenhydrAMINE (Benadryl Allergy) 25 MG tabletIndications :Allergic dermatitis Take 1 tablet (25 mg) by mouth every 6 (six) hours if needed for itching. 30 tablet 1 05/11/20 24 Active cetirizine (ZyrTEC) 10 MG tablet Take 1 tablet (10 mg) by mouth Once per day. 30 tablet 11 05/11/20 24 2024 Active acetaminophen (Tylenol 8 Hour) 650 MG ER tabletIndications :Chronic bilateral low back pain without sciatica Take 1 tablet (650 mg) by mouth if needed in the morning and at bedtime for mild pain. Do not crush, chew, or split. 60 tablet 2 05/11/20 24 Active albuterol (Ventolin HFA) 108 (90 Base) MCG/ACT inhaler Inhale 2 puffs every 4 (four) hours if needed for wheezing or shortness of breath. 18 g 2 05/11/20 24 Active traZODone (Desyrel) 50 MG tablet Take 1 tablet (50 mg) by mouth at bedtime. 30 tablet 2 05/11/20 24 2024 Active escitalopram (Lexapro) 10 MG tablet Take 1 tablet (10 mg) by mouth Once per day. 30 tablet 2 05/11/20 24 Active naproxen (Naprosyn) 500 MG tablet Take 1 tablet (500 mg) by mouth if needed in the morning and at bedtime for mild pain. 20 tablet 05/11/20 24 2024 Active fluticasone furoate (Arnuity Ellipta) 100 MCG/ACT inhaler Inhale 1 puff Once per day. Rinse mouth with water after use to reduce aftertaste and incidence of candidiasis. Do not swallow. 1 each 11 05/11/20 24 2024 Active methocarbamol (Robaxin) 750 MG tablet Take 1 tablet (750 mg) by mouth if needed in the morning, at noon, and at bedtime for muscle spasms. 60 tablet 2 05/11/20 24 2024 Active metFORMIN XR (Glucophage-XR) 500 MG 24 hr tabletIndications :Type 2 diabetes mellitus with other specified complication, unspecified whether intermediate teacher insulin use ([facility]) TAKE 1 TABLET BY MOUTH EVERY DAY WITH DINNER 30 tablet 5 08/19/19 25 Active metFORMIN XR (Glucophage-XR) 500 MG 24 hr tabletIndications :Type 2 diabetes mellitus with other specified complication, unspecified whether snf insulin use ([facility]) TAKE 1 TABLET BY MOUTH EVERY DAY WITH DINNER 30 tablet 5 07/31/19 24 2024 Discontinued Active Problems Problem Noted Date Diagnosed Date Mixed anxiety and depressive disorder 03/19/2023 Healthcare maintenance 03/19/2023 Chronic bilateral low back pain without sciatica 12/19/2022 Chronic pain of both knees 12/10/2022 Chronic hip pain 12/10/2022 Vitamin D deficiency 12/07/2022 Mild persistent asthma 12/07/2022 Hyperlipidemia 12/07/2022 Type 2 diabetes mellitus 10/18/2022 Vitamin B12 deficiency 03/11/2017 Urinary incontinence 03/28/2015 Peripheral venous insufficiency 03/28/2015 Osteoarthritis 03/28/2015 BMI 31.0-31.9,adult 03/28/2015 Allergic rhinitis 03/28/2015 Essential hypertension 12/03/2011 Encounters Date Type Department Care Team Description 08/18/2024 Telephone [facility] [address] [place] [address] Brigitte Kan, Nurse Triage 08/18/2024 Refill [facility] [address] [place] [address] Brigitte Kan, Type 2 diabetes mellitus with other specified complication, unspecified whether snf insulin use ([facility]) 07/21/2024 Telephone [facility] [address] [place] [address] Brigitte Kan, Durable Medical Equipment (DME Script Diabetic Shoes) from Last 3 Months Immunizations Name Administration Dates Next Due DTaP 11/15/2011 HepB-CpG 03/20/2022,02/14/2022 Influenza, Split (incl. purified surface antigen ) 03/11/2012 Moderna Covid-19 Vaccine 6+ Bivalent 10/08/2022 Pfizer Covid-19 Vaccine 12+ 07/04/2023 Pneumococcal Conjugate PCV 20 03/20/2022 Pneumococcal Polysaccharide PPSV23 11/15/2011 RSV Bivalent 04/21/2024 Tdap 08/29/2021 Zoster, Recombinant 02/01/2021,11/30/2020 Social History Tobacco Use Types Packs/Day Years Used Date Smoking Tobacco: Never Passive Smoke Exposure: Never Smokeless Tobacco: Never Tobacco Cessation:Counseling Given: Not Answered Alcohol Use Standard Drinks/Week Comments Never 0 [...] Orientation Straight 04/30/2022 10 :14 AM EDT Last Filed Vital Signs Vital Sign Reading Time Taken Comments Blood Pressure 147/82 05/11/2024 12:26 PM EST Pulse 79 05/11/2024 12:26 PM EST Temperature 36.3 ??C (97.3 ??F) 05/11/2024 12:[address] Respiratory Rate 17 05/11/2024 12:26 PM EST Oxygen Saturation 99% 02/11/2024 1:29 PM EDT Inhaled Oxygen Concentration - - Weight 94.8 kg (209 lb) 05/11/2024 12:26 PM EST Height 172.7 cm (5' 8 ) 05/11/2024 12:26 PM EST Body Mass Index 31.78 05/11/2024 12:26 PM EST Plan of Treatment Health Maintenance Due Date Last Done Comments CT Colonography 1959 Colonoscopy 1959 Colorectal Cancer Screening 1959 FIT DNA/Cologuard 1959 FIT 1959 FOBT 1959 Sigmoidoscopy 1959 Diabetes: Foot Exam 1969 Eye Exam 1969 Alcohol/Substance Use Screening 1971 Diabetes: Urine Protein Screening 1978 Pap Smear 1980 Cervical Cancer Screening 1989 HPV/Cotest 1989 COVID-19 Vaccine ( season) 2024 07/04/2023, 10/08/2022, 06/22/2021, Additional history exists Influenza Vaccine (#1) 2024 03/11/2012 Depression Screening 03/19/2024 03/19/2023, 03/19/20 23 SDOH Screening 03/19/2024 03/19/2023 Diabetes: Hemoglobin A1C 11/08/2024 024, 01/06/2024, 01/06/2024, Additional history exists Lipid Panel 01/05/2025 01/06/2024, 11/29, 09/29/2020 Tobacco Screening 05/11/2025 05/11/2024 Mammogram 04/14/2026 04/14/2024 DTaP/Tdap/Td Vaccines (3 - Td or Tdap) 08/30/2031 08/29/2021, 11/15/2011 Zoster Vaccines Completed 02/01/2021, 11/30/2020 Hepatitis B Vaccines Completed 03/20/2022, 02/15/20 Pneumococcal Vaccine: 50+ Years Completed 03/20/2022, 11/15/2011 Hepatitis C Screening Completed 01/06/2024 , 12/10/2022, 09/29/2020 RSV Patients and Patients Aged 60 years or older Completed 04/21/2024 HIB Vaccines Aged Out No longer eligi ble based on patient's age to complete this topic HPV Vaccines Aged Out No longer eligi ble based on patient's age to complete this topic Hepatitis A Vaccines Aged Out No long er eligible based on patient's age to complete this topic IPV Vaccines Aged Out No longer eligi ble based on patient's age to complete this topic Meningococcal Vaccine Aged Out No isaac ary eligible based on patient's age to complete this topic RSV under 20 months Aged Out No longe r eligible based on patient's age to complete this topic Rotavirus Vaccines Aged Out No longer eligible based on patient's age to complete this topic Procedures Procedure Name Priority Date/Time Associated Diagnosis Comments POCT GLYCATED HEMOGLOBIN, TOTAL Routine 05/11/2024 12:57 PM EST Type 2 diabetes mellitus without complication, without long-term current use of insulin ([facility]) BI MAMMOGRAM SCREENING TOMOSYNTHESIS BILATERAL Routine 04/14/2024 12:35 PM EDT Encounter for screening mammogram for malignant neoplasm of breast HEPATITIS C AB W/REFL TO HCV RNA, QN, PCR Routine 01/06/2024 12:58 PM EDT Type 2 diabetes mellitus without complication, without long-term current use of insulin (CMS/HCC) LIPID PANEL, STANDARD Routine 01/06/2024 12:58 PM EDT Type 2 diabetes mellitus without complication, without long-term current use of insulin (CMS/HCC) from Last 3 Months or Most Recently Relevant to Health Maintenance Results * POCT HGB A1C (05/11/2024 12:57 PM EST) Hemoglobin A1C 6.0 4.0 - 6.0 % QC Media Lot # [id number] Lot# Expiration Date Blood 05/11/2024 12:5 7 PM EST Brigitte Kan DO POINT OF CARE TEST ENTER/CUONG T ORDERABLES Final Result * BI Mammogram Screening Tomosynthesis Bilateral (04/14/2024 12:35 PM EDT) Anatomical Region Laterality Modality Breast Bilateral Mammography 04/14/2024 12:3 5 PM EDT Narrative 04/21/2024 12:14 PM EDT ? [facility] ?[address] ?[place] [address] ? Mammography Report ? Signed ? Patient: Fidel,Katelyn Nye ?MR#: [id number] ? : 1960 ?Acct:[id number] ? Age/Sex: 64 / F ?ADM Date: 10/15/24 ? Loc: HO.US ? Attending Betty Kan DO ? Ordering Physician: Brigitte Kan DO ?Results: 1N ?? egative ? Date of Service: 04/14/24 ?Follow Up: 1 Year From Orig ?? inal Mammogram ? Procedure(s): MM tomosynthesis screening BI ?? Accession Number(s): [id number] ? cc: Brigitte Kan DO ? EXAMINATION: ?? MM SCREENING DIGITAL BREAST TOMOSYNTHESIS, BILATERAL ? CLINICAL INFORMATION: ? Screening. Asymptomatic. ? COMPARISON: ?? Mammography: Comparison is made with available priors ? TECHNIQUE: ?? Digital breast mammography with tomosynthesis is performed in both the ?? craniocaudal and mediolateral oblique views along with computer-aided ?? detection (CAD). ? FINDINGS: ?? There are scattered areas of fibroglandular density (ACR BI-RADS breast ?? composition Category b). ? There are no significant masses, abnormal calcifications, or other ?? abnormalities. ? MM/MM tomosynthesis screening BI ?? IMPRESSION: ?? No mammographic evidence of malignancy. ? ASSESSMENT: ? BI-RADS BI-RADS 1 - Negative ? RECOMMENDATION: ?? Routine annual mammography screening. ? 1 year F/U ? This examination should not preclude the clinical evaluation of a ?? suspicious palpable abnormality. ? This patient's information was entered into a reminder system with a ?? target due date for their next mammogram. ? Electronically signed by: ??Jaja Orozco DO ??04/21/2024 12:11 PM EDT ?? RP ? Dictated By: ?Jaja Orozco DO ? Signed By: ?<Electronically signed by Jaja Orozco, DO in OV> ? 04/21/24 1211 ? DD/ 1235 ? TD/TT: 04/14/24 1250 ? Felt Hat Inspector And Packer: ? Procedure Note Donotuseinterpreter, Image - 04/21/[address] [address] Mammography Report Signed Patient: Katelyn Parra MMR#: [id number] : 9Acct:[id number] Age/Sex: 64 / FADM Date: 04/14/24 Loc: . Attending Dr: Brigitte Kan DO Ordering Physician: Brigitte Kanults: 1N egative Date of Service: 04/14/24Follow Up: 1 Year From Orig inal Mammogram Procedure(s): MM tomosynthesis screening BI Accession Number(s): [id number] cc: Brigitte Kan DO EXAMINATION: MM SCREENING DIGITAL BREAST TOMOSYNTHESIS, BILATERAL CLINICAL INFORMATION: Screening. Asymptomatic. COMPARISON: Mammography: Comparison is made with available priors TECHNIQUE: Digital breast mammography with tomosynthesis is performed in both the craniocaudal and mediolateral oblique views along with computer-aided detection (CAD). FINDINGS: There are scattered areas of fibroglandular density (ACR BI-RADS breast composition Category b). There are no significant masses, abnormal calcifications, or other abnormalities. MM/MM tomosynthesis screening BI IMPRESSION: No mammographic evidence of malignancy. ASSESSMENT: BI-RADS BI-RADS 1 - Negative RECOMMENDATION: Routine annual mammography screening. 1 year F/U This examination should not preclude the clinical evaluation of a suspicious palpable abnormality. This patient's information was entered into a reminder system with a target due date for their next mammogram. Electronically signed by: Jaja Orozco DO 04/21/2024 12:11 PM EDT Dictated By: Jaja Orozco DO Signed By: <Electronically signed by Jaja Orozco DO in OV> 04/21/24 1211 DD/ 1235 TD/TT: 04/14/24 1250 Felt Hat Inspector And Packer: us Brigitte Kan DO IMG BI PROCEDURES Final Resu lt * Hepatitis C Antibody with Reflex to HCV, RNA, Quantitative, Real-Time PCR (01/06/2024 12:58 PM EDT) Hepatitis C Antibody Nonreactive Nonreactive [facility] Comment:Antibodies to HCV no t detected; does not exclude early acuteHCV infection. Blood Venous blood specimen / Unknown 01/06/2024 12:58 PM EDT 01/06/2024 1:37 PM EDT Brigitte Kan DO LAB BLOOD ORDERABLES Final R esult [facility] [address] [place] [phone] * Lipid Panel, Standard (01/06/2024 12:58 PM EDT) Triglycerides 89 <150 mg/dL [facility] Comment:Desirable Triglyceri de: less than 150 mg/dLBorderline High Triglyceride 150-199 mg/dLHigh Triglyceride: 200-499 mg/dLVery High Triglyceride: greater than or equal to 5OO mg/dL Cholesterol 158 <200 mg/dL [facility] Comment:Desirable Cholestero l: less than 200 mg/dLBorderline High Cholesterol: 200-239 mg/dLHigh Cholesterol: greater than 239 mg/dL LDL Cholesterol Calculated 95 <100 mg/dL [facility] Comment:Desirable LDL: less than 100 mg/dLNear Optimal/Above Optimal LDL: 110- 129 mg/dLBorderline High LDL: 130-159 mg/dLHigh LDL: 160-189 mg/dLVery High LDL: greater than or equal to 190 mg/dL HDL Cholesterol 46 >40 mg/dL [facility] Comment:Desirable HDL: great er than 40 mg/dL Note: This HDL assay may give artificially low results in patients with liver disease. Blood Venous blood specimen / Unknown 01/06/2024 12:58 PM EDT 01/06/2024 1:37 PM EDT Brigitte Kan DO LAB BLOOD ORDERABLES Final R esult [facility] [address] [place] [address] [phone] from Last 3 Months or Most Recently Relevant to Health Maintenance Insurance [facility] Care Teams Grain Drier Relationship Specialty Start Date End Date Brigitte Kan DO [address] [place] [address] PCP - General Family Medicine 01/15/14
--- OUTSIDE RECORDS SUMMARY | 2024-08-21 13:19 | XMS_ITS | Encounter Summary ---
Author Organization [employer] Address [address] [place] [address] [address] [place] [address] Care Team Providers Care Lasting Room Supervisor Name Role Phone Brigitte Kan DO Primary Care Provider [phone] Reason for Visit * Reason Onset Date Comments Reschedule 02/14/2023 Encounter Details Date Type Department Care Team (Late st Contact Info) Description 02/14/2023 Telephone [facility] [address] [place] [address] Brigitte Kan DO [address] [place] [address] Reschedule Social History Tobacco Use Types Packs/Day Years Used Date Smoking Tobacco: Never Passive Smoke Exposure: Never Smokeless Tobacco: Never Alcohol Use Standard Drinks/Week Comments Never 0 (1 standard drink = 0.6 oz pur e alcohol) Comments Unknown Sex and Gender Information Value Date Recorded Sex Assigned at Female 04/30/2022 10:14 AM EDT Legal Sex Female 10:14 AM EDT Gender Identity Female 04/30/2022 10:14 AM EDT Sexual Orientation Straight 04/30/2022 10 :14 AM EDT documented as of this encounter Miscellaneous Notes * Telephone Encounter - Aneta Payton - 02/14/2023 1:08 PM EDT Tc from pt requesting to r/s 03/29 derm appointment. Please contact pt at [phone] documented in this encounter Plan of Treatment Not on file documented as of this encounter Visit Diagnoses Not on filedocumented in this encounter Additional Health Concerns Assessment Noted Time PHQ-9 Depression Total Score: 2 12/11/19 23 10:26 AM EDT documented as of this encounter Care Teams Lasting Room Supervisor Relationship Specialty Start Date End Date Brigitte Kan DO [address] [place] [address] PCP - General Family Medicine 01/15/14 documented as of this encounter
--- OUTSIDE RECORDS SUMMARY | 2024-08-21 13:19 | XMS_ITS | Encounter Summary ---
Author Organization [employer] Address [address] [place] [address] [address] [place] [address] Care Team Providers Care Chopper Feeder Name Role Phone Brigitte Kan DO Primary Care Provider Encounter Details Date Type Department Care Team (Latest Contact Info) Description 02/22/2021 Abstract [facility] CONVERSIONS Dental, Provider, DDS Social History Tobacco Use Types Packs/Day Years Used Date Smoking Tobacco: Never Assessed Comments Unknown Sex and Gender Information Value Date Recorded Sex Assigned at Female 04/30/2022 10:14 AM EDT Legal Sex Female 10:14 AM EDT Gender Identity Female 04/30/2022 10:14 AM EDT Sexual Orientation Straight 04/30/2022 10 :14 AM EDT documented as of this encounter Plan of Treatment Not on file documented as of this encounter Visit Diagnoses Not on filedocumented in this encounter Care Teams Chopper Feeder Relationship Specialty Start Date End Date Brigitte Kan DO [address] [place] [phone] PCP - General Family Medicine 01/15/14 documented as of this encounter
--- OUTSIDE RECORDS SUMMARY | 2024-08-21 13:19 | XMS_ITS | Encounter Summary ---
Author Organization [employer] Address [address] [facility] [address]t [place] [address] Care Team Providers Care Biofuels Processing Technician Name Role Phone Brigitte Kan DO Primary Care Provider + [phone] Reason for Visit * Reason Onset Date Comments Nurse Triage 08/18/2024 Encounter Details Date Type Department Care Team (Late st Contact Info) Description 08/18/2024 Telephone [facility] [address] [place] [address] Brigitte Kan DO [address] [place], [place] [phone] Nurse Triage Social History Tobacco Use Types Packs/Day Years [...] encounter Miscellaneous Notes * Telephone Encounter - Alison Courtney LPN - 08/18/2024 12:51 PM EST Triage call returned to patient who reports several days of runny nose , no fever or shortness of breath. Has use of flonase and zyrtec with no improvement. Has plugged ears no pain and no drainage. Patient feels that she may need ABT for sinus concerns. Able to take fluids without issue no ST. Disposition reviewed and patient in agreement with plan. CCA home evaluation placed at time of call. Address and phone confirmed. Reviewed with patient home care recommendations and reasons to call back.Pt verbalized understanding and agrees. Multiple (2) protocols were used on this call. Disposition for Call: See in Office or Video Visit Today Protocol Used: Ear - Congestion (Adult) Protocol-Based Disposition: See in Office or Video Visit Today Positive Triage Question: * Patient wants to be seen * All higher-acuity triage questions were negative Care Advice Discussed: * Reasons To Call Back - Ear pain or fever occurs - You become worse Protocol Used: Common Cold (Adult) Protocol-Based Disposition: See in Office or Video Visit Today or Tomorrow Video visit not offered Positive Triage Question: * Patient wants to be seen * All higher-acuity triage questions were negative Care Advice Discussed: * Reasons To Call Back - You become short of breath - You become worse * Telephone Encounter - Dylan Green 08/18/2024 11:17 AM EST Symptom: Cough Outcome: Schedule an appointment to be seen within 24 hours Reason: Caller denied all higher acuity questions The caller accepted this outcome. documented in this encounter Plan of Treatment Not on file documented as of this encounter Visit Diagnoses Not on filedocumented in this encounter Additional Health Concerns Assessment Noted Time PHQ-9 Depression Total Score: 6 03/19/20 23 12:17 PM EDT documented as of this encounter Care Teams Biofuels Processing Technician Relationship Specialty Start Date End Date Brigitte Kan DO [address] [place] [id number] PCP - General Family Medicine 01/15/14 documented as of this encounter
--- OUTSIDE RECORDS SUMMARY | 2024-08-21 13:19 | XMS_ITS | Encounter Summary ---
Author Organization [employer] Address [address] [facility] [address]t [place] [address] Care Team Providers Care Tumbling Instructor Name Role Phone Brigitte Kan DO Primary Care Provider + [phone] Reason for Visit * Reason Comments Med Refill Encounter Details Date Type Department Care Team (Late st Contact Info) Description 08/18/2024 Refill [facility] [address] [place] [address] Brigitte Kan DO [address] [place] [address] Type 2 diabetes mellitus with other specified complication, unspecified whether moth exterminator insulin use ([facility]) Social History Tobacco Use Types Packs/Day Years [...] documented as of this encounter Visit Diagnoses Diagnosis Type 2 diabetes mellitus with other specified complication, unspecified whether penitentiary insulin use ([facility]) documented in this encounter Additional Health Concerns Assessment Noted Time PHQ-9 Depression Total Score: 6 03/19/20 23 12:17 PM EDT documented as of this encounter Care Teams Tumbling Instructor Relationship Specialty Start Date End Date Brigitte Kan DO [address] [place] [id number] PCP - General Family Medicine 01/15/14 documented as of this encounter
--- OUTSIDE RECORDS SUMMARY | 2024-08-21 13:19 | XMS_ITS | Data Portability ---
Author Organization [employer], [place] in - [employer] Address [address] [place] [address] Care Team Providers Care Injection Molding Process Technician Name Role Phone HIM [facility] OTHER [facility] OTHER [phone] Assessment Encounter Date Assessment Date Assessment LastModified by Organization Details LastModified Time 07/30/2023 07/30/2023 I have reviewed and agree with the assessment and plan as documented by the spot checker. I provided real-time medical direction for this [...] assessment and plan as documented by the spot checker. I provided real-time medical direction for this [...] precautions discussed. paysola Not available 04/26/2024 21:49:35 04/27/2024 04/27/2024 I provided real -time medical direction via phone for this encounter, and was available for additional phone based assistance as needed. I have reviewed and agree with the Assessment and Plan as documented by the Digital Court Reporter. We discussed the diagnostic uncertainty of home [...] verbalized understanding of instructions to the medic robbie Not available 04/27/2024 15:22:54 08/18/2024 08/18/2024 I have reviewed and agree with the assessment and plan as documented by the spot checker. I provided real-time medical direction for this encounter and was immediately available to provide additional phone-based assistance as needed. History as noted in EMR and by spot checker. I would add / emphasize: Patient seen for 5 days of URI symptoms specifically sinus congestion, rhinorrhea, and cough. Denies chest pain shortness of breath. AVSS and well-appearing per report saturating well at room air with clear lungs per report. Rapid covid flu testing negative . Borderline febrile at 100.2 degrees F. High suspicion is for viral upper respiratory suspicion with low suspicion for bacterial pneumonia given predominant upper respiratory symptoms and clear lung sounds. Will continue supportive treatment with nasal decongestant and cough suppressant. Advised on only using nasal congestion for 2 days to avoid rebound congestion. Reviewed red flags that should prompt evaluation in the emergency department and patient voices understanding. [email or web address] Not available 08/19/2024 15:42:07 Plan of Treatment Reminders Order Date Submit Date Provider Last Modified By Organization Details Last Modified Time Details Appointments None recorded. Lab rapid flu (A+B) 2024 025 NOLBERTO [facility] - [facility], [address] [place] [address], [id number], 5 15:47:30 rapid SARS CoV 2 Ag, QL IA, respiratory specimen 2024 025 NOLBERTO Main - [facility], [address] [place] [address], [phone], 5 15:45:58 BMP, serum or plasma 2023 024 [email or web address] 0 Main - [facility], [address] [place] [address], [id number], 4 15:35:24 Referral None recorded. Procedures None recorded. Surgeries None recorded. Imaging None recorded. Medication Orders Imani-Tussin 100 mg/5 mL oral liquid 2024 025 [facility], [address] [place] [address], [id number], 5 09:53:45 oxymetazoli ne 0.05 % nasal spray 2024 025 [facility], [address] [place] [address], [id number], 5 09:53:45 ketorolac 60 mg/2 mL intramuscul ar solution 2023 024 [facility], [address] [place] [address], [id number], 4 16:08:04 prednisone 20 mg tablet 2023 024 [facility], [address] [place] [address], [id number], 4 14:23:19 prednisone 20 mg tablet 2023 024 [facility], [address] [place] [address], [id number], 4 16:08:04 pantoprazol e 20 mg tablet,jenny yed release 2023 024 [facility], [address] [place] [address], [id number], 4 14:23:19 ketorolac 30 mg/mL injection solution 2023 024 [email or web address] 0 [facility], [address] [place] [address], [id number], 4 15:35:01 prednisone 20 mg tablet 2023 024 [facility], [address] [place] [address], [id number], 4 16:49:17 ketorolac 30 mg/mL injection solution 2023 024 [facility], [address] [place] [address], [id number], 4 21:49:39 ketorolac 30 mg/mL (1 mL) injection solution 2023 024 [facility], [address] [place] [address], [id number], 4 19:42:58 prednisone 20 mg tablet 2023 024 [facility], [address] [place] [address], [id number], 4 15:38:27 Patient TargetsNo targets recorded. Patient InstructionsNo instructions recorded. Reason for Referral None Reported. Results Created Date Observation Date Name Description Value Unit Range Abnormal Flag Note LastModifiedBy Organization Detail LastModifiedTime 07/15/19 24 07/15/2023 gluco se, finge rstic k, blood Blood Glucose: mg/dl 375 Not Available Main - [facility] [address] [place] [address], [id number], 07/15/2023 11:47:57 07/15/19 24 07/15/2023 romel gibbs am No observ ation record ed. [facility] - [address], [phone], 07/15/2023 13:28:30 Result Notes None recorded. Procedures Surgical History None recorded. Imaging Results Imaging Date Name Status LastModified by Organization Details LastModified Time 07/15/2023 electrocardiogram completed [email or web address] [facility] [address] [place] [address], [phone], 07/15/2023 13:28:30 Procedure Notes None recorded. Medical Equipment None Reported. Allergies Allergen ID Allergen Name Allergen Category Reaction Reaction Severity Criticality Documentation Date Start Date Code Code System Note Provider Name and Address Organization Details Recorded Time 05516 penicilli n V Not available Not available Not available Not available 08/18/2024 7984 RxNorm Not Available [facility] - production 5 13:07:30 41303 sulfameth oxazole medicatio n Not available Not available Not available 08/18/2024 64073 RxNorm Not Available [facility] - production 5 13:07:30 88122 oxycodone medicatio n Not available Not available Not available 08/18/2024 7804 RxNorm Not Available [facility] - production 5 13:07:30 63889 ceftriaxo ne medicatio n Not available Not available Not available 08/18/2024 2193 RxNorm Not Available [facility] - production 5 13:09:03 2946 Bactrim medicatio n Not available Not available Not available 01/31/2023 80790 9 RxNorm Not Available [facility] 5 13:07:30 2947 Product containin g penicilli n (product) medicatio n Not available Not available Not available 01/31/2023 65830 8001 SNOMED Not Available [facility] - production 5 13:07:30 4363 latex environme nt,medica tion Not available Not available Not available 07/15/2023 15340 91 RxNorm Not Available [facility] - production [...] Not Available Not Available No t Available oxymetazolin e 0.05 % nasal spray Orient 2 sprays as needed by intranasal route at bedtime for 2 days. 2024 active Not Available Not Available Not Avai lable rosuvastatin 5 mg tablet TAKE 1 TABLET [...] Available Imani-Tussin 100 mg/5 mL oral liquid Take 10 mL every 4 hours by oral route for 7 days. 2024 active Not Available Not Available Not Avai lable Double Antibiotic (bacitrcn zn) 500 unit-10,000 unit/gram [...] /min 98.1 [degF] 16 /min 175.26 cm 78236.6 88 g 154 mm[Hg] 76 mm[Hg] Not Available [facility] - production 4 19:37:21 Date Recorded Respiratory rate Heart rate Oxygen saturation Oxygen saturation in Arterial blood by Pulse oximetry Body temperature Body height Body weight Systolic blood pressure Diastolic blood pressure Provider Name and Address Organization Details Last Updated DateTime 4 16 /min 62 /min 98 % 98 % 98 [degF] 175.26 cm 54993.9 12 g 120 mm[Hg] 70 mm[Hg] Not Available [facility] - production 4 21:39:29 Date Recorded Respiratory rate Oxygen saturation Oxygen saturation in Arterial blood by Pulse oximetry Body temperature Heart rate Systolic blood pressure Diastolic blood pressure Provider Name and Address Organization Details Last Updated DateTime 4 16 /min 98 % 98 % 98.5 [degF] 85 /min 146 mm[Hg] 60 mm[Hg] Not Available [facility] production 4 14:31:12 Date Recorded Body height Body mass index (BMI) Body weight Provider Name and Address Organization Details Last Updated DateTime 04/27/2024 175.26 cm 31.2 kg/m2 30199.99 g Ofelia Haines MD [address] [place] [address],[address], [place], [address], [place] - [employer] 04/27/2024 15:31:30 Date Recorded Respiratory rate Oxygen saturation Oxygen saturation in Arterial blood by Pulse oximetry Heart rate Body temperature Systolic blood pressure Diastolic blood pressure Provider Name and Address Organization Details Last Updated DateTime 4 16 /min 96 % 96 % 76 /min 99.3 [degF] 146 mm[Hg] 80 mm[Hg] Not Available [facility] - production 4 16:01:29 Date Recorded Heart rate Oxygen saturation Oxygen saturation in Arterial blood by Pulse oximetry Body temperature Respiratory rate Systolic blood pressure Diastolic blood pressure Provider Name and Address Organization Details Last Updated DateTime 5 90 /min 98 % 98 % 100.2 [degF] 14 /min 111 mm[Hg] 72 mm[Hg] Not Available [facility] - production 5 14:39:10 Social History None recorded. Functional Status None [...] 337 Trevor Peña MD [facility] - [facility] [address] [place] [phone] 09/03/2021 16:09:20 03/02/2022 14:21:26 Lumbar radiculopathy [id number] M54.16 919 Trevor Peña MD Main - [facility] [address] [place] [phone] 0 10/08/2021 13:51:19 04/02/2022 16:45:16 Lumbar radiculopathy [id number] M54.16 4446 Jud Long MD [facility] - [facility] [address] [place] [phone] 0 04/05/2022 11:27:10 04/05/2022 13:05:02 4515 Stephon Penny MD [facility] - [facility] [address] [place] [phone] 04/09/2022 11:27:49 04/10/2022 14:45:11 Lumbar radiculopathy [id number] M54.16 Requesting prior treatment of oral prednisone and IM Toradol which she has tolerated in the past. No kidney impairment . 5276 Koki Anderson MD [facility] - [facility] [address] [place] [phone] 05/11/2022 15:44:17 05/14/2022 12:45:16 Acute urinary tract infection [id number] N39.0 7286 Thad Wetzel MD Main - [facility] [address] [place] [phone] 0 07/24/2022 20:29:47 07/26/2022 10:20:29 Pruritus of scalp 965361273 L29.8 7721 Saroj Felipe MD Main - [facility] [address] [place] [phone] 0 08/13/2022 11:10:54 08/15/2022 10:22:27 Thoracic back pain 123600711 M54.6 This 62-year-ol d female has had [...] 9704 Laverne Arias MD Main - [facility] [address] [place] [phone] 10/21/2022 17:14:44 10/23/2022 10:13:58 Chronic low back pain 862571038 M54.50 72010 Stephon Penny MD Main - [facility] [address] [place] [phone] 0 12/14/2022 19:18:10 12/15/2022 22:52:43 Lumbar radiculopathy 491586488 M54.16 Requesting prior treatment of oral prednisone and IM Toradol which she has tolerated in the past. No kidney impairment . No red flag signs. Reviewed s/s of when to go to ED [id number] Saroj Felipe MD Main - [facility] [address] [place] [phone] 0 12/18/2022 18:37:25 12/20/2022 15:02:03 Low back pain [id number] M54.50 This 62-year-ol d female has recently had lower back pain. She was seen several days ago and given Toradol and prednisone . She was prescribed Baclofen and Tylenol by her PDP but they were not effective. I ordered Toradol 30 mg IM and advised her to follow-up with her PCP. The patient agreed with this plan. [id number] Ofelia Haines MD [facility] - [facility] [address] [place] [phone] 01/31/2023 10:53:25 01/31/2023 14:39:59 Acute low back pain 657959518 M54.50 Patient is requesting prednisone after the [...] this could interfere with her antihypert ensives [id number] Elisa Aguilar MD Main - [facility] [address] 02/14/2023 16:42:48 02/15/2023 10:53:12 Urinary symptoms [id number] R39.9 Evaluation in the field was performed by my spot checker colleague, as noted above, I provided real-time [...] shortness of breath, cough, chest pain, fever. 06314 Ofelia Haines MD Main - [facility] [phone] 07/15/2023 11:35:21 07/15/2023 17:48:03 Pain in limb 89715061 M79.609 Right greater than left upper arm/ EKG done to rule out arm pain as atypical myocardial ischemia in the diabetic. Have no old EKGs to compare. Patient advised cannot totally rule out cardiac disease with 1 EKG needs close follow-up with PCP tomorrow-l ikely to need further testing. To have low [...] record; patient also denies history of CKD. [id number] Elisa Aguilar MD [facility] - [address] [phone] 07/29/2023 10:18:04 07/29/2023 12:29:45 Sacral back pain [id number] M54.50 Evaluation in the field was performed by my spot checker colleague, as noted above, I provided real-time direction and supervisio n for this visit. 63yo F p/w atraumatic nonradiati ng low back/sacra l pain, non-radiat ing. [facility] 01/2023, was scheduled [...] PCP f/up for further work up and prison pain control plan. We discussed the diagnostic [...] shortness of breath, cough, chest pain, fever. 05112 Laverne Arias MD [facility] - [address] [phone] 07/30/2023 19:37:16 08/05/2023 09:51:12 Acute low back pain [id number] M54.50 [id number] Laverne Arias MD Main - [address] [place] [address] 04/26/2024 21:32:40 04/27/2024 21:51:24 Low back pain 052633012 M54.50 [id number] Ofelia Haines MD [facility] - [facility] [address] [place] [phone] 04/27/2024 14:31:09 04/27/2024 22:00:35 Low back pain [id number] M54.50 Patient has no radiculopa thy or loss of bowel or bladder control, I can find no recent labs on her. She states she had labs at [facility] 6 weeks ago and was told [...] control and close follow-up with her PCP [id number] ALIZA FAUST MD [facility] - [facility] [address] [place] [phone] 06/07/2024 16:00:32 06/07/2024 21:49:28 Bilateral pain in upper arms [id number] 6209971 M79.621 Evaluation in the field was performed by my spot checker colleague, as noted above, I provided real-time [...] first dose was administer ed by the spot checker) .-A prescripti on for Pantoprazo le 20 [...] or black stools or any other concerns. [id number] Mason Mathew MD Main - [facility] [address] [place] [phone] 08/18/2024 14:39:05 08/20/2024 08:35:24 Upper respiratory infection [id number] J06.9 Health Concerns Section Related Observation LastModified by Organization Detai ls LastModified Time None Recorded Concern Status LastModified by Organization Details LastModified Time None Recorded Advance Directives Directive None Recorded Payers Encounter Date Sequence Insurance Name Policy Number Policy Soliz Covered Member ID Soliz Member ID Guarantor Name 07/30/2023 1 [employer] - DOS ON OR AFTER 2022 - DUAL ELIGIBLE - NURSING HOME OPTIONS AND ONE CARE (MEDICARE REPLACEMENT/ADV ANTAGE - HMO) Katelyn Parra [id number] Katelyn Parra 04/26/2024 1 [facility] - DOS ON OR AFTER 2022 - DUAL ELIGIBLE - NURSING HOME OPTIONS AND ONE CARE (MEDICARE REPLACEMENT/ADV ANTAGE - HMO) Katelyn Parra [id number] Katelyn Parra 04/27/2024 1 [facility] [employer] - DOS ON OR AFTER 2022 - DUAL ELIGIBLE - NURSING HOME OPTIONS AND ONE CARE (MEDICARE REPLACEMENT/ADV ANTAGE - HMO) Katelyn Parra [id number] Katelyn Parra 06/07/2024 1 [employer] - DOS ON OR AFTER 2022 - DUAL ELIGIBLE - NURSING HOME OPTIONS AND ONE CARE (MEDICARE REPLACEMENT/ADV ANTAGE - HMO) Katelyn Parra [id number] Katelyn Parra 08/18/2024 1 [facility] [employer] - DOS ON OR AFTER 2022 - DUAL ELIGIBLE - NURSING HOME OPTIONS AND ONE CARE (MEDICARE REPLACEMENT/ADV ANTAGE - HMO) Katelyn Parra [id number] Katelyn Parra Notes Date Note Type Note Provider Name and Address Organization Details Recorded Time 07/30/2023 text/html CRC Nurse Triage Notes (Marcia [...] ED for worsening symptoms. Member verbalizes understanding. .................... .................... .................... .................... .................... .................... .................... . Digital Court Reporter Note From Ck Garcia: Pt reports several days of atraumatic lower right back pain. Pt sts she has had this in the past and is usually treated with prednisone which works well. Pt is alert, NAD. VSS. Afebrile. Non focal neuro exam. Normal gait. Lungs CTA. Benign ABD exam. No LE edema. [facility] contacted and pt treated with ketorolac 15 mg IM, right deltoid. Prednisone sent to pharmacy. Pt encouraged to f/u with PCP later this week. Digital Court Reporter Allergies: Penicillin, Bactrim, Latex .................... .................... .................... .................... .................... .................... .................... . Disposition: Fulfilled Laverne Arias MD [address] [place] [address],[address], [place], [address], [employer] 08/04/2023 19:01:06 04/26/2024 text/html HPI: Member calling [...] be seen for help with pain control. .................... .................... .................... .................... .................... .................... .................... . CRC Nurse Triage Notes (Tevin Swartz): Chief Complaints: Pain PMH: Diabetes, Hypertension Allergies: Penicillin, Bactrim, Latex Comments: Reviewed HPI Laverne Arias MD [address] [place] [address],[address], [place], [address], [employer] 04/26/2024 21:50:02 04/27/2024 text/html CRC Nurse Triage Notes (Ariane Chaidez): Reason For Request: Patient has Stomach Pain, on her side. Chief Complaints: Abdominal Pain PMH: Diabetes, Hypertension Allergies: Penicillin, Bactrim, Latex Comments: Set Up Operator Tool verified the member's name//address and phone number. Member is a 68 yr old female/ A/o3 PMH> DM / HTN Allergies > PCN/ Bactrim/ LatexPt calling for pain on right flank area. She was seen on 04/26 by [facility] and given toradol , she went to [facility] and they did an US and she is waiting for the results. She denies any symptoms. She is not on any blood thinners at this time. She denies any CKD . Education provided on the response time and the member was advised to monitor reported s/s and seek emergency treatment if needed Digital Court Reporter Organization Information for Danial Vincentwinter Legal Name: [employer] Address: [address] [place] [id number], Funeral Director And Embalmer: Meet Stacy MD CLIA No.: [id number] Digital Court Reporter POC Test Results from Danial Vincent i[facility] Chem8+ (14:43:02) Na: 142 mEq/L K: 3.6 mEq/L Cl: 105 mEq/L iCa: 1.26 mmol/L TCO2: 27 mmol/L Glu: 107 mg/dL BUN: 17 mg/dL Crea: 0.6 mg/dL Hct: 37 % Hb: 12.6 g/dL A .................... .................... .................... .................... .................... .................... .................... . Digital Court Reporter Note From Pankaj Vincentin: SC12 dispatched address listed above for report of female democrat with flank pain. Appropriate equipment brought to patient side. Patient reports right flank pain just above the hip x2 weeks, reports ultrasound performed but has not received the results yet. Patient reports she was seen and evaluated by [facility] day prior which she received Toradol with [...] and bowel function normal. Abdomen non tender/distended. [facility] consulted and reported provided. Blood draws performed, 21g butterfly in right AC, BMP results listed above from [facility]. [facility] ordered 15mg Toradol IM which were administered in pt right deltoid without incident. [facility] instructed patient to continue Tylenol 650mg for pain relief and follow up with PCP. Prescription called into preferred pharmacy. Red flags discussed. .................... .................... .................... .................... .................... .................... .................... . Disposition: Fulfilled SEGMD:Seen approx 2 weeks at [place]- no results from abd/flank US yet.Patient received [...] in several days. Ofelia Haines MD [address] [facility],[address], [place], [address], [employer] - [employer] 04/27/2024 15:35:44 06/07/2024 text/html HPI: jamila with bilateral arm pain, was seen by pcp on May 12 where she was prescribed naproxen/ibuprofen, mbr states she stopped taking them x1wk ago due to not helping. jamila denies any injury was seen by [facility] in the past for same complaints where she was prescribed prednisone. requesting [facility] for possible Toradol injection and PO prednisone. .................... .................... .................... .................... .................... .................... .................... . CRC Nurse Triage Notes (Josiane Duran): Chief Complaints: Joint pain/swelling PMH: Hypertension Comments: CRC RN does not need additional information to process visit -Valerie LEAL .................... .................... .................... .................... .................... .................... .................... . Digital Court Reporter Note From Ck Garcia: This 64-year-old female with a history including but not limited to HTN, DM type II requested a visit today to address nontraumatic pain in both upper arms. Patient states she believes this is ? a n inflammatory response? and is requesting 30 mg [...] in nature and/or request referral to a interventional cardiologist. The patient was given the opportunity to ask questions and is agreeable to this plan. .................... .................... .................... .................... .................... .................... .................... . [facility] Consulted: Aliza Faust .................... .................... .................... .................... .................... .................... .................... . Disposition: Fulfilled ALIZA FAUST MD [address] [facility],[address], [place], [address], [employer] 06/07/2024 16:47:15 08/18/2024 text/html HPI: Patient with ongoing congestion with runny nose. No fever or shortness of breath. Has crackling in ears .feels she needs ABT treatment. .................... .................... .................... .................... .................... .................... .................... . CRC Nurse Triage Notes (Juju Falk - RN): Chief Complaints: Common cold symptoms PMH: Hypertension, Allergic Rhinitis, Asthma, Diabetes Mellitus Type 2 PMH Reviewed at 08/18/2024 - 13:07 Allergies Reviewed at 08/18/2024 - 13:07 Comments: CRC RN did not require any additional information to process this visit. Digital Court Reporter Organization Information for Ck Gracia [employer] Legal Name: [facility] Address: [address] [place] [address], Funeral Director And Embalmer: Raphael Chadwick MD IA No.: [id number] Digital Court Reporter POC Test Results from [employer] Rapid COVID antigen (14:38:17) COVID: - Rapid influenza antigen (14:38:17) Flu: - .................... .................... .................... .................... .................... .................... .................... . Digital Court Reporter Note From Ck Garcia: This 64-year-old female with a history including but not limited to HTN, asthma, DM type II requested a visit today to address five days of sinus congestion, rhinorrhea, cough producing yellow/brown sputum. Patient denies any chest pain, shortness of breath, dyspnea on exertion, fevers, nausea, vomiting, diarrhea. Patient is using cetirizine, fluticasone and Imani-tussin cough syrup. Patient presents awake and alert, in no acute distress and speaking full sentences. Her vital signs are reasonably stable and she is afebrile. Nonfocal neurological exam. Normal gait. Normal oropharynx exam. No sinus tenderness. Lungs are clear throughout auscultation. Abdomen is soft, nontender, nondistended. No lower extremity edema. Rapid COVID and flu testing are both negative. We discussed the diagnostic uncertainty of home visits and the risk associated with this. In this case, the patient and I felt this to be an acceptable and reasonable amount of risk given the benefit of avoiding an ED visit. The [facility] spoke directly to the patient and provided thorough education on the patient's prescriptions as well as additional OTC/supportive care therapy. We recommend that she follow up with her primary care physician, stay well hydrated and present to the emergency department for any new or worsening severe symptoms chest pain, severe shortness of breath, high fever, altered mental status. The patient was given the opportunity to ask questions and is agreeable to this plan. .................... .................... .................... .................... .................... .................... .................... . [facility] Consulted: Mason Mathew .................... .................... .................... .................... .................... .................... .................... . Disposition: Fulfilled Mason Mathew MD [address] [place] [address],[facility], [place], [address], [employer] 08/19/2024 15:42:23 OBGyn Episode No OBEpisode recorded.
--- OUTSIDE RECORDS SUMMARY | 2024-08-21 13:19 | XMS_ITS | Encounter Summary ---
Author Organization [employer] Address [address] [facility] 7t [place] [address] Care Team Providers Care Instructor Product Inspection Name Role Phone Brigitte Kan DO Primary Care Provider + [phone] Reason for Visit * Reason Onset Date Comments Appointment Request 09/09/2023 Encounter Details Date Type Department Care Team ([facility] st Contact Info) Description 09/09/2023 Telephone [facility] MEDICINE [address] [place], [place] [phone] Brigitte Kan DO [address] [place], [place] [phone] Appointment Request Social History Tobacco Use Types Packs/Day Years [...] encounter Miscellaneous Notes * Telephone Encounter - Kamini Stevens - 09/09/2023 11:27 AM EDT Tc from pt requesting to r/s f/u Dm appt scheduled for 09/09/23, appt was a no show. documented in this encounter Plan of Treatment Not on file documented as of this encounter Visit Diagnoses Not on filedocumented in this encounter Additional Health Concerns Assessment Noted Time PHQ-9 Depression Total Score: 6 03/19/20 23 12:17 PM EDT documented as of this encounter Care Teams Instructor Product Inspection Relationship Specialty Start Date End Date Brigitte Kan DO [address] [place] [address] PCP - General Family Medicine 01/15/14 documented as of this encounter
--- OUTSIDE RECORDS SUMMARY | 2024-08-21 13:19 | XMS_ITS | Encounter Summary ---
Author Organization [employer] Address [address] [facility] [address] 7t [place] [address] Care Team Providers Care Housekeeping Coordinator Name Role Phone Brigitte Kan DO Primary Care Provider [phone] Encounter Details Date Type Department Care Team (Late st Contact Info) Description 07/04/2022 Orders Only [facility] MED & PEDS [address] [place] [address] Brigitte Contreras LPN Social History Tobacco Use Types Packs/Day Years [...] on filedocumented in this encounter Care Teams Housekeeping Coordinator Relationship Specialty Start Date End Date Brigtite Kan DO [address] [place] [address] PCP - General Family Medicine 01/15/14 documented as of this encounter
== END 2024-08-21 12:50 | disposition home or self-care (01) ==
LOC: HO.CT 12:49
PROVIDERS: PCP Family Medicine; Visit Provider Family Medicine
DX: M54.50 Low back pain, unspecified (principal); G89.29 Other chronic pain
CPT/HCPCS: 72131

== ENCOUNTER → 2024-08-21 13:01 | Outpatient (BNV) | payer OTHER, SELFPAY | PROVIDERS: PCP Family Medicine; Visit Provider Radiology Vascular & Interventional Radiology | DX: M54.50 Low back pain, unspecified (principal) | CPT/HCPCS: 72131 ==

== ENCOUNTER 2024-12-21 09:40 | Outpatient (AMB) | payer OTHER, SELFPAY ==
--- NOTE | 2024-12-21 09:42 | A.OFFVIS_ITS ---
Vital Signs 12/21/24 09:43 Height 5 ft 9 in Weight 211 lb BMI 31.2 Intake Visit Reasons: Inj-right knee-had B/L knee on 07/16/24 Intake Note: Katelyn is a 64 year old female who presents today for repeat injection in the right knee. Lest injections were administered to bilateral knees on 07/16/24. Patient reports that the right knee is still in pain since last injection, mild relief. Patient requested that she would like the injection in the left hip. Allergies ciprofloxacin Allergy (Severe, Verified 12/21/24 09:46) Hives latex (LATEX) Allergy (Intermediate, Verified 12/21/24 09:46) RASH oxycodone (OXYCODONE) Allergy (Intermediate, Verified 12/21/24 09:46) hives, itching Penicillins Allergy (Intermediate, Verified 12/21/24 09:46) HIVES sulfamethoxazole (From Bactrim) Allergy (Intermediate, Verified 12/21/24 09:46) HIVES tramadol (TRAMADOL) Allergy (Intermediate, Verified 12/21/24 09:46) HEADACHES Sulfa (Sulfonamide Antibiotics) Allergy (Mild, Verified 12/21/24 09:46) Itching HPI HPI Inj-right knee-had B/L knee on 07/16/24: Details: Ktaelyn is a 64 year old female who presents today for repeat injection in the right knee. Lest injections were administered to bilateral knees on 07/16/24. Patient reports that the right knee is still in pain since last injection, mild relief. Patient requested that she would like the injection in the left hip. [facility] Medical History Urinary incontinence Chronic pain syndrome Scar neuroma Asthma Primary osteoarthritis of left knee Primary osteoarthritis of right knee Surgical History History of surgery Social History Alcohol intake: never Patient Tobacco Use Status: Former Tobacco user Tobacco use type: Cigarette Cigarettes Per Day: 40 Years Smoked: 6 Current occupational status: retired Physical Exam Vital Signs: BMI result Body Mass Index 31.2 Extrem Other: Tenderness to palpation left greater trochanter. Right knee with no effusion. Tenderness to palpation medial and lateral joint line. Office Procedures Joint Inj/Aspir; Non-Pain Clin Joint Injection/Drain Details: Injected 1 mL of Decadron and 3 mL 1% lidocaine and 3 mL of 0.25% Marcaine. Site was prepped using aseptic technique. Patient tolerated the procedure well. Shoulders, Hips, Knees, Hip Injection Large Joint 27763: Left Hip (Greater Trochanteric Bursa) Knee Large Joint Injection 29190: Right Knee Coding Procedure code (CPT) selection complete Assessment & Plan Assessment & Plan (1) Greater trochanteric bursitis of left hip: Code(s): M70.62 - Trochanteric bursitis, left hip Category: Medical Plan: Left hip greater greater trochanter injected. I informed her of the hyperglycemic effects of steroids. (2) Primary osteoarthritis of right knee: Code(s): M17.11 - Unilateral primary osteoarthritis, right knee Category: Medical Plan: I injected the right knee. I informed her of the hyperglycemic effects of steroids Plan I injected her Left GT Bursa and Right Knee Coding Level of Care Code Est Pt Level 4 (38029) Complex EM visit Add On G2211 Diagnoses Greater trochanteric bursitis of left hip M70.62 Primary osteoarthritis of right knee M17.11 CPT Codes Shoulders, Hips, Knees, - Hip Injection Large Joint 39479: Left Hip ([id number]) Shoulders, Hips, Knees, - Knee Large Joint Injection 19095: Right Knee ([id number])
[2024-12-21 09:43] VITALS: BMI 31.2
--- OUTSIDE RECORDS SUMMARY | 2024-12-21 10:26 | XMS_ITS | Encounter Summary ---
Author Organization [employer] Address 75 [facility] 7t [place] [address] Care Team Providers Care Cnc Operator Machinist Name Role Phone Brigitte Kan DO Primary Care Provider [phone] [phone] Encounter Details Date Type Department Care Team (Latest Contact Info) Description 02/22/2021 Abstract [facility] CONVERSIONS Dental, Provider, DDS Social History Tobacco Use Types Packs/Day Years Used Date Smoking Tobacco: Never Assessed Comments Unknown Sex and Gender Information Value Date Recorded Sex Assigned at Female 04/30/2022 10:14 AM EDT Legal Sex Female 10:14 AM EDT Gender Identity Female 04/30/2022 10:14 AM EDT Sexual Orientation Straight 04/30/2022 10 :14 AM EDT documented as of this encounter Plan of Treatment Upcoming Encounters Date Type Department Care Team (Late st Contact Info) Description 04/07/2025 11:00 AM EDT Office Visit [facility] OPTOMETRY [address] [place] [address] Mahesh, [place], OD [address] [place] [address] documented as of this encounter Visit Diagnoses Not on filedocumented in this encounter Care Teams Cnc Operator Machinist Relationship Specialty Start Date End Date Brigitte Kan DO [address] [place] [address] PCP - General Family Medicine 01/15/14 documented as of this encounter
== END 2024-12-21 15:19 | disposition home or self-care (01) ==
PROVIDERS: PCP Family Medicine; Visit Provider Orthopaedic Surgery
DX: M70.62 Trochanteric bursitis, left hip (principal); M17.11 Unilateral primary osteoarthritis, right knee
CPT/HCPCS: 20610; 99214

== ENCOUNTER → 2024-12-21 09:40 | Outpatient (BNVA) | payer OTHER, SELFPAY | PROVIDERS: PCP Family Medicine; Visit Provider Orthopaedic Surgery | DX: M70.62 Trochanteric bursitis, left hip (principal); M17.11 Unilateral primary osteoarthritis, right knee | CPT/HCPCS: 20610; 99212; J0665; J1100; J2003 ==

== ENCOUNTER 2025-02-11 11:16 | Outpatient (AMB) | payer OTHER, SELFPAY ==
--- NOTE | 2025-02-11 11:35 | MHC.OFFVIS ---
Intake Visit Reasons: Inj - Right GT Bursa Inj Intake Note: Katelyn is a 64 year old female who presents today for a Right Greater Trochanter Bursa Injection. Right SI joint region was last injected 08/12/23 Allergies ciprofloxacin Allergy (Severe, Verified 12/21/24 09:46) Hives latex (LATEX) Allergy (Intermediate, Verified 12/21/24 09:46) RASH oxycodone (OXYCODONE) Allergy (Intermediate, Verified 12/21/24 09:46) hives, itching Penicillins Allergy (Intermediate, Verified 12/21/24 09:46) HIVES sulfamethoxazole (From Bactrim) Allergy (Intermediate, Verified 12/21/24 09:46) HIVES tramadol (TRAMADOL) Allergy (Intermediate, Verified 12/21/24 09:46) HEADACHES Sulfa (Sulfonamide Antibiotics) Allergy (Mild, Verified 12/21/24 09:46) Itching HPI HPI Inj - Right GT Bursa Inj: Details: Katelyn is a 64 year old female who presents today for a Right Greater Trochanter Bursa Injection. Right SI joint region was last injected 08/12/23. She describes pain over the right greater trochanter with ambulation. Injections have benefitted her in the past. [facility] Medical History Urinary incontinence Chronic pain syndrome Scar neuroma Asthma Primary osteoarthritis of left knee Primary osteoarthritis of right knee Surgical History History of surgery Social History Alcohol intake: never Patient Tobacco Use Status: Former Tobacco user Tobacco use type: Cigarette Cigarettes Per Day: 40 Years Smoked: 6 Current occupational status: retired Physical Exam Extrem Other: Tenderness to palpation over the right greater trochanter/abductor insertion on the greater trochanter. Office Procedures Joint Inj/Aspir; Non-Pain Clin Joint Injection/Drain Details: Injected 1 mL of Decadron and 3 mL 1% lidocaine and 3 mL of 0.25% Marcaine. Site was prepped using aseptic technique. Patient tolerated the procedure well. Shoulders, Hips, Knees, Hip Injection Large Joint 85915: Right Hip (greater trochanter) Coding Procedure code (CPT) selection complete Assessment & Plan Assessment & Plan (1) Greater trochanteric bursitis of right hip: Code(s): M70.61 - Trochanteric bursitis, right hip Category: Medical Plan: This is a 64-year-old woman with greater trochanteric bursitis of the right hip. I injected her right hip. She may follow up as needed. (2) Diabetes: Code(s): E11.9 - Type 2 diabetes mellitus without complications Category: Medical Plan: Informed of the hyperglycemic effects of steroids. Coding Level of Care Code Est Pt Level 4 (79104) Diagnoses Greater trochanteric bursitis of right hip M70.61 Diabetes E11.9 CPT Codes Shoulders, Hips, Knees, - Hip Injection Large Joint : Right Hip ([id number])
--- OUTSIDE RECORDS SUMMARY | 2025-02-11 12:22 | XMS_ITS | Encounter Summary ---
Author Organization [employer] Address [address] [facility] 7t [place] [address] Care Team Providers Care Mental Health Director Name Role Phone Brigitte Kan DO Primary Care Provider +1 [phone] Encounter Details Date Type Department Care Team (Latest Contact Info) Description 02/22/2021 Abstract [facility] CONVERSIONS Dental, Provider, DDS Social History Tobacco [...] Description 04/07/2025 11:00 AM EDT Office Visit [facility] OPTOMETRY [address] [place] [address] Mahesh, [place], OD [address] [place] [address] documented as of this encounter Visit Diagnoses Not on filedocumented in this encounter Care Teams Mental Health Director Relationship Specialty Start Date End Date Brigitte Kan DO [address] [place] [address] PCP - General Family Medicine 01/15/14 documented as of this encounter
== END 2025-02-11 11:42 | disposition home or self-care (01) ==
LOC: HO.HOS 11:16
PROVIDERS: PCP Family Medicine; Visit Provider Orthopaedic Surgery
DX: M70.61 Trochanteric bursitis, right hip (principal); E11.9 Type 2 diabetes mellitus without complications
CPT/HCPCS: 20610

== ENCOUNTER → 2025-02-11 11:16 | Outpatient (BNVA) | payer OTHER, SELFPAY | PROVIDERS: PCP Family Medicine; Visit Provider Orthopaedic Surgery | DX: M70.61 Trochanteric bursitis, right hip (principal); E11.9 Type 2 diabetes mellitus without complications | CPT/HCPCS: 20610; J0665; J1100; J2003 ==

== ENCOUNTER 2025-04-16 10:54 | Outpatient (AMB) | payer OTHER, SELFPAY ==
--- NOTE | 2025-04-16 11:02 | A.SPINEOV_ITS ---
Vital Signs 04/16/25 11:19 Height 5 ft 9 in Weight 213 lb BMI 31.5 Intake Visit Reasons: Chronic back pain Intake Note: Ms. Parra is here today cc Chronic back pain. Anatomy Professor Required: No Allergies ciprofloxacin Allergy (Severe, Verified 04/16/25 11:19) Hives latex (LATEX) Allergy (Intermediate, Verified 04/16/25 11:19) RASH oxycodone (OXYCODONE) Allergy (Intermediate, Verified 04/16/25 11:19) hives, itching Penicillins Allergy (Intermediate, Verified 04/16/25 11:19) HIVES sulfamethoxazole (From Bactrim) Allergy (Intermediate, Verified 04/16/25 11:19) HIVES tramadol (TRAMADOL) Allergy (Intermediate, Verified 04/16/25 11:19) HEADACHES Sulfa (Sulfonamide Antibiotics) Allergy (Mild, Verified 04/16/25 11:19) Itching Physical Exam Vital Signs: BMI result Body Mass Index 31.5 Assessment & Plan Assessment & Plan (1) Back pain: Code(s): M54.9 - Dorsalgia, unspecified Category: Medical Plan Dear Loreta, Thank you for referring Mrs Parra to our office today. She is a very nice 65-year-old diabetic, who has had back pain in the lower lumbar to lumbosacral junction level for about 2 years. The pain is particularly bad at night, it does not matter if she is lying on her back or on her side. It also bothers her if she is standing for more than 5 or 10 minutes, it will force her to sit down. She has no pain in her back when she is walking. She has no lower extremity symptoms when she is walking or standing. No paresthesias in the lower extremities. She has had no dedicated conservative treatment to this point. She did have a CT scan showing severe degenerative disc disease with stenosis at L4-5 and L5-S1. She tried Motrin and Tylenol without any relief of the pain, so for now she really does not take anything. PMH: Diabetes but her A1c is 6, hypertension which is well controlled, osteoarthritis in her knees for which she gets routine injections, left hip replacement. She also has issues with an overactive bladder. She had a bladder stimulator some point but it was subsequently removed. Social hx: She does not smoke, but did previously, quit about 8 or 9 years ago, does not drink or use any recreational drugs Medications: Metformin Allergies: Please see the CO-Value list Physical exam: She is awake alert oriented, able to stand on her own however it is slow and she takes a couple attempts to get to the upright position. She walks with a walker in the hallway with normal gait and stride length. Strength in the lower extremities is normal, reflexes absent throughout. 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 There is severe stenosis at L4-5 and L5-S1 within limitations of CT which do not give us the most accurate a imaging. Impression: 65-year-old female, diabetic well controlled, presents with 2 years of midline lower lumbar sacral pain that is present when she is standing, but particularly worse at night. She has no symptoms when she is walking. She has no lower extremity symptoms down her legs with activity, standing or walking. To this point she has had no dedicated conservative treatment. 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 The only segment I do not see there is completely fused as L5-S1, but there is large lateral bridging osteophytes here. She has significant facet arthropathy at L5-S1 as well amongst other facet changes higher up. Right now she is not really looking for surgery, and at this point without any dedicated conservative treatment it would be hard to offer her surgery. We talked about potential physical therapy as a 1st option, but I think this will be limited in his usefulness for her, but is worth trying if it gets bad enough. She is interested in a cortisone injection. Obviously her diabetes is a consideration here but her A1c was 6 so that may lend itself to being a little more flexible with our pain management colleagues. I will send her to Dr. Man and see if he would be willing to consider doing facet blocks on her with follow-up RFA if that helps. If nothing that he does can improve her symptoms, we can see her back at an MRI and I can have a more thorough conversation with Dr. Hammer to see if there is anything we can do what at that L5-S1 level surgically. Thank you for allowing us to care for your patient. The total time spent with this visit with this patient was 45 minutes reviewing history, physical exam, lumbar imaging review, and implementation of treatment plan or further diagnostic testing René Hammer MD,PhD [facility] Orders: Referrals Pain Management Referral M54.9 - Dorsalgia, unspecified Coding Level of Care Code New Pt Level 4 (57216) Diagnoses Back pain M54.9
[2025-04-16 11:19] VITALS: BMI 31.5
--- OUTSIDE RECORDS SUMMARY | 2025-04-16 13:33 | XMS_ITS | Encounter Summary ---
Author Organization [employer] Address [address] [facility] 7t [place] [address] Care Team Providers Care Flue Gas Analyst Name Role Phone Brigitte Kan DO Primary Care Provider [phone]- [phone] Reason for Visit * Reason Onset Date Comments Reschedule 02/14/2023 Encounter Details Date Type Department Care Team (Late st Contact Info) Description 02/14/2023 Telephone [facility] [address] [place] [address] Brigitte Kan DO [address] [place] [address] Reschedule Social History Tobacco Use Types Packs/Day [...] 03/29 derm appointment. Please contact pt at [phone] documented in this encounter Plan of Treatment Not on file documented as of this encounter Visit Diagnoses Not on filedocumented in this encounter Additional Health Concerns Assessment Noted Time PHQ-9 Depression Total Score: 2 12/11/19 23 10:26 AM EDT documented as of this encounter Care Teams Flue Gas Analyst Relationship Specialty Start Date End Date Brigitte Kan DO [address] [place] [address] PCP - General Family Medicine 01/15/14 documented as of this encounter
--- OUTSIDE RECORDS SUMMARY | 2025-04-16 13:33 | XMS_ITS | Encounter Summary ---
Author Organization [employer] Address [address] [facility] [address]t h Floor [place] [id number] Care Team Providers Care Environmental Property Assessor Name Role Phone Brigitte Kan DO Primary Care Provider + [phone] Reason for Visit * Reason Comments Med Refill Encounter Details Date Type Department Care Team (Late st Contact Info) Description 12/28/2024 Refill [facility] MEDICINE [address] [place] [address] Brigitte Kan DO [address] [place] [address] Social History Tobacco Use Types Packs/Day Years [...] documented as of this encounter Care Teams Environmental Property Assessor Relationship Specialty Start Date End Date Brigitte Kan DO [address] [place] [address] PCP - General Family Medicine 01/15/14 documented as of this encounter
--- OUTSIDE RECORDS SUMMARY | 2025-04-16 13:33 | XMS_ITS | Encounter Summary ---
Author Organization [employer] Address 75 [facility] 7t [place] [address] Care Team Providers Care Correction Lieutenant Name Role Phone Brigitte Kan DO Primary Care Provider Reason for Visit * Reason Onset Date Comments Durable Medical Equipment 11/22/2022 Encounter Details Date Type Department Care Team (Late st Contact Info) Description 11/22/2022 Telephone [facility] MEDICINE [address] [place] [address] Brigitte Kan DO [address] [place] [address] Durable Medical Equipment Social History Tobacco Use [...] 2:15 PM EDT Tc from Steff with [facility] requesting a recliner for pt. Please sent script to Steff at [email or web address] If any questions please contact Steff at [phone] documented in this encounter Plan of Treatment Not on file documented as of this encounter Visit Diagnoses Not on filedocumented in this encounter Care Teams Correction Lieutenant Relationship Specialty Start Date End Date Brigitte Kan DO [address] [place] [address] PCP - General Family Medicine 01/15/14 documented as of this encounter
--- OUTSIDE RECORDS SUMMARY | 2025-04-16 13:33 | XMS_ITS | Encounter Summary ---
Author Organization [employer] Address [address] [facility] [address] [facility] [address]t [place] [address] Care Team Providers Care Home Care Giver Name Role Phone Brigitte Kan DO Primary Care Provider [phone]- [phone] Encounter Details Date Type Department Care Team (Late st Contact Info) Description 07/04/2022 Orders Only [facility] MED & PEDS [address] [place] [address] Brigitte Contreras LPN Social History Tobacco Use [...] on filedocumented in this encounter Care Teams Home Care Giver Relationship Specialty Start Date End Date Brigitte Kan DO [address] [place] [address] PCP - General Family Medicine 01/15/14 documented as of this encounter
--- OUTSIDE RECORDS SUMMARY | 2025-04-16 13:33 | XMS_ITS | Encounter Summary ---
Author Organization [employer] Address [address] [facility] 7t [place] [address] Care Team Providers Care Snow Ranger Name Role Phone Brigitte Kan DO Primary Care Provider +1 [phone] Encounter Details Date Type Department Care Team (Latest Contact Info) Description 02/22/2021 Abstract [facility] CONVERSIONS Dental, Provider, DDS Social History [...] on filedocumented in this encounter Care Teams Snow Ranger Relationship Specialty Start Date End Date Brigitte Kan DO [address] [place] [address] PCP - General Family Medicine 01/15/14 documented as of this encounter
--- OUTSIDE RECORDS SUMMARY | 2025-04-16 13:33 | XMS_ITS | Clinical Summary ---
Author Organization [employer] Address [address] [facility] [address] [place] [address] Care Team Providers Care Internet Sales Consultant Name Role Phone Brigitte Kan DO Primary Care Provider Allergies Active Allergy Reactions Criticality Noted Date Comments Ceftriaxone Unknown 10/26/2024 Cephalosporins 03/29/2021 Other reaction(s): rash, abdominal pain Latex Rash Low 01/16/2021 Other Reaction(s): Not available Oxycodone Rash Low 01/16/2021 Penicillin V Hives Penicillins Unknown 05/11/2024 Sulfa Antibiotics Hives Sulfamethoxazole Hives 08/20/2013 Sulfamethoxazole-Trimethoprim Unknown 2023 Trimethoprim Hives 08/20/2013 Medications Multiple Vitamin (multivitamin) tablet Take 1 tablet by mouth in the morning. 90 tablet 3 024 Active rosuvastatin (Crestor) 5 MG tabletIndications :Other hyperlipidemia TAKE 1 TABLET BY MOUTH EVERY DAY 30 tablet 5 Active fluticasone (Flonase Allergy Relief) 50 MCG/ACT nasal spray Administer 1 spray into each nostril Once per day. Shake gently. Before first use, prime pump. After use, clean tip and replace cap. 16 g 11 024 2024 Active acetaminophen (Tylenol 8 Hour) 650 MG ER tabletIndications :Chronic bilateral low back pain without sciatica Take 1 tablet (650 mg) by mouth if needed in the morning and at bedtime for mild pain. Do not crush, chew, or split. 60 tablet 2 024 Active traZODone (Desyrel) 50 MG tablet Take 1 tablet (50 mg) by mouth at bedtime. 30 tablet 2 024 2024 Active Ketotifen Fumarate 0.035 % solution Administer 1 drop into affected eye(s) if needed in the morning and at bedtime (itchy eyes). 10 mL 3 Active budesonide-formot lawrence (Symbicort) 160-4.5 MCG/ACT inhaler Inhale 2 puffs in the morning and at bedtime. Rinse mouth with water after use to reduce aftertaste and incidence of candidiasis. Do not swallow. 1 each 025 2025 Active escitalopram (Lexapro) 10 MG tablet Take 1 tablet (10 mg) by mouth Once per day. 90 tablet 3 025 2025 Active Blood Pressure kit 1 each 1 (one) time per week. 1 kit Active clotrimazole (Lotrimin) 1 % creamIndications: Tinea cruris Apply topically 2 times daily. To toenails x 12 weeks 60 g 2 Active losartan (Cozaar) 25 MG tabletIndications :Essential hypertension Take 1 tablet (25 mg) by mouth Once per day. 90 tablet 3 Active pioglitazone (Actos) 15 MG tabletIndications :Essential hypertension Take 1 tablet (15 mg) by mouth in the morning. 90 tablet 3 Active clobetasol (Temovate) 0.05 % external solution Apply topically if needed in the morning and at bedtime (scalp eczema). 50 mL 1 Active cholecalciferol (Vitamin D-3) 50 MCG (1999 UT) capsule Take 2 capsules (100 mcg) by mouth Once per day. 60 capsule 3 Active cetirizine (ZyrTEC) 10 MG tablet Take 1 tablet (10 mg) by mouth Once per day. 30 tablet 025 2025 Active selenium sulfide (Selsun) 2.5 % shampooIndication s:Seborrheic dermatitis of scalp Apply topically/lath er to affected area 2-3 times a week for 2-4 weeks, leave for 5 minutes then rinse. 118 mL 1 025 Active Emollient (Eucerin Advanced Repair) cream Apply 1 Application topically 2 times daily. 454 g 3 Active diphenhydrAMINE (Benadryl Allergy) 25 MG tabletIndications :Allergic dermatitis Take 1 tablet (25 mg) by mouth every 6 (six) hours if needed for itching. 30 tablet 1 Active nystatin (Mycostatin) 602979 UNIT/GM powder Apply topically 2 times daily. 180 g 3 025 2025 Active naproxen (Naprosyn) 500 MG tablet Take 1 tablet (500 mg) by mouth if needed in the morning and at bedtime for mild pain. 30 tablet 1 025 2025 Active methocarbamol (Robaxin) 500 MG tablet Take 1 tablet (500 mg) by mouth if needed in the morning and at bedtime for muscle spasms. 60 tablet 025 2025 Active metFORMIN XR (Glucophage-XR) 500 MG 24 hr tabletIndications :Type 2 diabetes mellitus with other specified complication, unspecified whether fpc insulin use (HCC) TAKE 1 TABLET BY MOUTH EVERY DAY WITH DINNER 90 tablet 1 025 Active Diclofenac Sodium 1 % gel APPLY 2 GRAMS TO AFFECTED AREA(S) THREE TIMES DAILY 100 g 3 025 Active hydrocortisone 2.5 % cream APPLY TOPICALLY TWICE DAILY IN THE MORNING AND AT BEDTIME NEEDED RASH FOR UP TO 14 DAYS 025 Active Diclofenac Sodium 1 % gel APPLY 2 GRAMS TO AFFECTED AREA(S) THREE TIMES DAILY 100 g 3 024 2024 Discontinued Active Problems Problem Noted Date Diagnosed Date Mixed anxiety and depressive disorder 03/19/2023 Healthcare maintenance 03/19/2023 Chronic bilateral low back pain without sciatica 12/19/2022 Assessment & Plan (10/26/2024 2:50 PM EDT): Acute on chronic low back pain with focal swelling over R SI joint - prednisone 20mg x 5 days - activity modification- no work (works on her feet x 6-8 hours a day at [employer]) - consider acupuncture or chronic pain group - ER precautions discussed Chronic pain of both knees 12/10/2022 Chronic hip pain 12/10/2022 Vitamin D deficiency 12/07/2022 Mild persistent asthma 12/07/2022 Hyperlipidemia 12/07/2022 Type 2 diabetes mellitus 10/18/2022 Vitamin B12 deficiency 03/11/2017 Urinary incontinence 03/28/2015 Peripheral venous insufficiency 03/28/2015 Osteoarthritis 03/28/2015 BMI 31.0-31.9,adult 03/28/2015 Allergic rhinitis 03/28/2015 Essential hypertension 12/03/2011 Encounters Date Type Department Care Team Description 04/07/2025 11:00 AM EDT Office Visit [facility] [address] [place] [address] Mahesh, [place], OD Mature cataract (Primary Dx); Controlled diabetes mellitus type II without complication (HCC); Presbyopia of both eyes 04/07/2025 Travel 03/29/2025 Refill [facility] [address] [place] [address] Brigitte Kan DO 01/17/2025 Refill [facility] [address] [place] [address] Cassie Kwok MD Type 2 diabetes mellitus with other specified complication, unspecified whether fpc insulin use (CMS/HCC) from Last 3 Months Immunizations Immunization Administration Dates Next Due DTaP 11/15/2011 HepB-CpG [...] Sign Reading Time Taken Comments Blood Pressure 132/70 01/08/2025 11:58 AM EDT Pulse 84 01/08/2025 11:58 AM EDT Temperature 36 C (96.8 F) 01/08/2025 11:58 AM EDT Respiratory Rate 18 01/08/2025 11:58 AM EDT Oxygen Saturation 100% 11/10/2024 1:54 PM EDT Inhaled Oxygen Concentration - - Weight 96.6 kg (213 lb) 01/08/2025 11:58 AM EDT Height 172.7 cm (5' 8 ) 01/08/2025 11:58 AM EDT Body Mass Index 32.39 01/08/2025 11:58 AM EDT Plan of Treatment Health Maintenance Due Date Last Done Comments CT Colonography 1959 Colonoscopy 1959 Colorectal Cancer Screening 1959 FIT DNA/Cologuard 1959 FIT 1959 FOBT 1959 Sigmoidoscopy 1959 Eye Exam 1969 Alcohol/Substance Use Screening 1971 Diabetes: Urine Protein Screening 1978 Hepatitis A Vaccines (1 of 2 - Risk 2-dose series) 1978 Depression Screening 03/19/2024 03/19/2023, 03/19/20 23 SDOH Screening 03/19/2024 03/19/2023 Lipid Panel 01/05/2025 01/06/2024, 11/29, 09/29/2020 COVID-19 Vaccine ( season) 2025 07/04/2023, 10/08/2022, 06/22/2021, Additional history exists Influenza Vaccine (#1) 2025 03/11/2012 Diabetes: Hemoglobin A1C 05/13/2025 025, 05/11/2024, 01/06/2024, Additional history exists Diabetes: Foot Exam 01/08/2026 01/08/2025, 01/08/2025, 01/08/2025, Additional history exists Tobacco Screening 04/12/2026 04/12/2025 Mammogram 04/14/2026 04/14/2024 DTaP/Tdap/Td Vaccines (3 - [...] patient's age to complete this topic Meningococcal B Vaccine Aged Out No l onger eligible based on patient's age to complete [...] Diagnosis Comments POCT GLYCATED HEMOGLOBIN, TOTAL Routine 11/10/2024 2:04 PM EDT Type 2 diabetes mellitus without complication, without long-term current use of insulin (CMS/HCC) BI MAMMOGRAM SCREENING TOMOSYNTHESIS BILATERAL Routine 04/14/2024 [...] Recently Relevant to Health Maintenance Results * (ABNORMAL) POCT HGB A1C (11/10/2024 2:04 PM EDT) Hemoglobin A1C 6.3(A) 4.0 - 6.0 % QC Media Lot # [id number] Lot# Expiration Date Blood 11/10/2024 2:04 PM EDT Brigitte Kan DO POINT OF CARE TEST ENTER/CUONG T ORDERABLES Final Result * BI Mammogram Screening Tomosynthesis Bilateral (04/14/2024 12:35 PM EDT) Anatomical Region Laterality Modality Breast Bilateral Mammography 04/14/2024 12:3 5 PM EDT Narrative 04/21/2024 12:14 PM EDT [address] [address] Mammography Report Signed Patient: Katelyn Parra MR#: [id number] : 1960 Acct:[id number] Age/Sex: 64 / F ADM Date: 04/14/24 Loc: . Attending Dr: Brigitte Kan DO Ordering Physician: Brigitte Kan DO Results: 1N egative Date of Service: 04/14/24 Follow Up: 1 Year From Orig inal Mammogram Procedure(s): MM tomosynthesis screening BI Accession Number(s): [id number] cc: Brigitte Kan DO EXAMINATION: MM SCREENING [...] 04/21/24 1211 DD/ 1235 TD/TT: 04/14/24 1250 Mobility Engineer: Procedure Note Donotuseinterpreter, Image - 04/21/[address] [address] Mammography Report Signed Patient: Katelyn Parra MMR#: [id number] : 1960cct:[id number] Age/Sex: 64 / FADM Date: 04/14/24 Loc: . Attending Dr: Brigitte Kan DO Ordering Physician: Brigitte Kanults: 1N egative Date of Service: 04/14/24Follow Up: 1 Year From Orig ina Mammogram Procedure(s): MM tomosynthesis screening BI Accession Number(s): [id number] cc: Brigitet Kan DO EXAMINATION: MM SCREENING DIGITAL BREAST [...] 04/21/24 1211 DD/ 1235 TD/TT: 04/14/24 1250 Mobility Engineer: us Brigitte Kan DO IMG BI PROCEDURES Final Resu lt * Hepatitis C Antibody with Reflex to HCV, RNA, Quantitative, Real-Time PCR (01/06/2024 12:58 PM EDT) Hepatitis C Antibody Nonreactive Nonreactive [facility] Comment:Antibodies to HCV no t detected; does not exclude early acuteHCV infection. Blood Venous blood specimen / Unknown 01/06/2024 12:58 PM EDT 01/06/2024 1:37 PM EDT us Brigitte Kan DO LAB BLOOD ORDERABLES Final R esult Performing Organization Address City/[facility]/ZIP Co de Phone Number [facility] [address] [place] [address] [phone] * Lipid Panel, Standard (01/06/2024 12:58 PM EDT) Triglycerides 89 <150 mg/dL [facility] Comment:Desirable Triglyceri de: less than 150 mg/dLBorderline High Triglyceride 150-199 mg/dLHigh Triglyceride: 200-499 mg/dLVery High Triglyceride: greater than or equal to 5OO mg/dL Cholesterol 158 <200 mg/dL [facility] Comment:Desirable Cholestero l: less than 200 mg/dLBorderline High Cholesterol: 200-239 mg/dLHigh Cholesterol: greater than 239 mg/dL LDL Cholesterol Calculated 95 <100 mg/dL [facility] Comment:Desirable LDL: less than 100 mg/dLNear Optimal/Above Optimal LDL: 110- 129 mg/dLBorderline High LDL: 130-159 mg/dLHigh LDL: 160-189 mg/dLVery High LDL: greater than or equal to 190 mg/dL HDL Cholesterol 46 >40 mg/dL [facility] Comment:Desirable HDL: great er than 40 mg/dL Note: This HDL assay may give artificially low results in patients with liver disease. Blood Venous blood specimen / Unknown 01/06/2024 12:58 PM EDT 01/06/2024 1:37 PM EDT us Brigitte Kan DO LAB BLOOD ORDERABLES Final R esult Performing Organization Address City/[facility]/ZIP Co de Phone Number [facility] [address] [place] [address] [phone] from Last 3 Months or Most Recently Relevant to Health Maintenance Insurance [facility] [employer] (HMO D-SNP) [place] [id number] Care Teams Internet Sales Consultant Relationship Specialty Start Date End Date Brigitte Kan DO [address] [place] [address] PCP - General Family Medicine 01/15/14
== END 2025-04-16 11:41 | disposition home or self-care (01) ==
LOC: HO.HNS 10:55
PROVIDERS: PCP Family Medicine; Referring Provider Family Medicine; Visit Provider Physician Assistant
DX: M54.9 Dorsalgia, unspecified (principal)
CPT/HCPCS: 99204

== ENCOUNTER → 2025-04-16 10:54 | Outpatient (BNVA) | payer OTHER, SELFPAY | PROVIDERS: PCP Family Medicine; Referring Provider Family Medicine; Visit Provider Physician Assistant | DX: M54.50 Low back pain, unspecified (principal); E11.9 Type 2 diabetes mellitus without complications | CPT/HCPCS: 99202 ==

== ENCOUNTER 2025-04-19 09:48 | Outpatient (AMB) | payer OTHER, SELFPAY ==
--- NOTE | 2025-04-19 09:49 | A.OFFVIS_ITS ---
Vital Signs 04/19/25 10:05 Height 5 ft 9 in Weight 213 lb BMI 31.5 Intake Visit Reasons: INJ- Left Hip - Last 12/21/24 Intake Note: Katelyn is a 65 year old female who presents today for a repeat injection in her Left Greater Trochanter, Last injection in this hip was on 12/21/24. States she is having a lot of pain in her right hip as well and would like to also have her right hip done. R Allergies ciprofloxacin Allergy (Severe, Verified 04/19/25 10:04) Hives latex (LATEX) Allergy (Intermediate, Verified 04/19/25 10:04) RASH oxycodone (OXYCODONE) Allergy (Intermediate, Verified 04/19/25 10:04) hives, itching Penicillins Allergy (Intermediate, Verified 04/19/25 10:04) HIVES sulfamethoxazole (From Bactrim) Allergy (Intermediate, Verified 04/19/25 10:04) HIVES tramadol (TRAMADOL) Allergy (Intermediate, Verified 04/19/25 10:04) HEADACHES Sulfa (Sulfonamide Antibiotics) Allergy (Mild, Verified 04/19/25 10:04) Itching HPI HPI INJ- Left Hip - Last 12/21/24: Details: Katelyn is a 65 year old female who presents today for a repeat injection in her Left Greater Trochanter, Last injection in this hip was on 12/21/24. States she is having a lot of pain in her right hip as well and would like to also have her right hip done. [facility] Medical History Urinary incontinence Chronic pain syndrome Scar neuroma Asthma Primary osteoarthritis of left knee Primary osteoarthritis of right knee Surgical History History of surgery Social History Alcohol intake: never Patient Tobacco Use Status: Former Tobacco user Tobacco use type: Cigarette Cigarettes Per Day: 40 Years Smoked: 6 Current occupational status: retired Physical Exam Exam Exam: Using a walker Tenderness to palpation bilateral greater trochanters. No groin pain with hip range of motion. Vital Signs: BMI result Body Mass Index 31.5 Office Procedures Joint Inj/Aspir; Non-Pain Clin Joint Injection/Drain Details: Injected 1 mL of Decadron and 3 mL 1% lidocaine and 3 mL of 0.25% Marcaine. Site was prepped using aseptic technique. Patient tolerated the procedure well. Shoulders, Hips, Knees, Hip Injection Large Joint : Bilateral Hip Coding Procedure code (CPT) selection complete Assessment & Plan Assessment & Plan (1) Greater trochanteric bursitis of left hip: Code(s): M70.62 - Trochanteric bursitis, left hip Category: Medical Plan: Injected left hip (2) Greater trochanteric bursitis of right hip: Code(s): M70.61 - Trochanteric bursitis, right hip Category: Medical Plan: Injected right hip (3) Diabetes: Code(s): E11.9 - Type 2 diabetes mellitus without complications Category: Medical Plan: I warned her of the hyperglycemic effects of steroids. Coding Level of Care Code Est Pt Level 4 (00396) Diagnoses Greater trochanteric bursitis of left hip M70.62 Greater trochanteric bursitis of right hip M70.61 Diabetes E11.9 CPT Codes Shoulders, Hips, Knees, - Hip Injection Large Joint : Bilateral Hip ([id number])
[2025-04-19 10:05] VITALS: BMI 31.5
== END 2025-04-19 10:11 | disposition home or self-care (01) ==
PROVIDERS: PCP Family Medicine; Visit Provider Orthopaedic Surgery
DX: M70.62 Trochanteric bursitis, left hip (principal); M70.61 Trochanteric bursitis, right hip; E11.9 Type 2 diabetes mellitus without complications
CPT/HCPCS: 20610

== ENCOUNTER → 2025-04-19 09:48 | Outpatient (BNVA) | payer OTHER, SELFPAY | PROVIDERS: PCP Family Medicine; Visit Provider Orthopaedic Surgery | DX: M70.62 Trochanteric bursitis, left hip (principal); M70.61 Trochanteric bursitis, right hip; E11.9 Type 2 diabetes mellitus without complications | CPT/HCPCS: 20610; J0665; J1100; J2003 ==